=== PATIENT | female | born 1980 | race Caucasian/White ===

== ENCOUNTER 2022-02-10 15:00 | Outpatient (RCR) | payer BC, SELFPAY ==
--- OUTSIDE RECORDS SUMMARY | 2022-01-16 09:20 | XMS_ITS | Continuity of Care Document ---
:1980 Author Care Team Providers Name Role Phone KAMRYN Oleary Attending Physician KAMRYN Oleary Primary Care Physician Chief Complaint and Reason for Visit Chief Complaint Adult, Unspecified Complaint Allergies, Adverse Reactions, Alerts Allergen Type Severity Reaction Last Verified Status Updated Metronidazole Allergy Severe Neurotoxic October 17, Yes Act je reaction 2021 Melatonin Allergy Unknown neuropathy October 17, Yes Active 2021 Sulfa drugs Allergy Mild hives October 17, Yes Active 2021 Social History Smoking Status Status Start Date End Date Date of Observat ion Never smoked tobacco September 102021 (finding) 12:48pm Observation Status Observation Response Date of Response Nonsmoker July 23, 2017 3:40pm Does not use illicit drugs June 3:40pm Does not drink alcohol November 25, 2017 3:1 3pm Additional Data Assigned Sex Female Problems Active Problems Medical Problem Onset Date Status Anxiety May 31, 2013 Active Endometriosis May 31, 2013 Active Cardiac murmur May 31, 2013 Active History of anal fissures May 31, 2013 Resolved C. difficile colitis Resolved Tinnitus Active Hypertriglyceridemia, familial Active Neuropathy associated with Active endocrine disorder Right ovarian cyst Active Cloudy urine Active HCTZ TREATMENT Active BMI 40.0-44.9, adult Active Well woman exam with routine Active gynecological exam NADYA (obstructive sleep apnea) July 07, 2017 Active Status post excisional biopsy May 31, 2013 Active History of salpingo-oophorectomy May 31, 2013 Active Status post surgical removal of May 31, 2013 Active ganglion cyst History of laparoscopic Active cholecystectomy [place] teeth extracted Active Medications Medication Status Dose Units Route Directions Qty Days Start End Ins tructions Date Date Cholecalcife Active 1000 UNIT PO Daily 100 rol (Vitamin D) 1,000 Unit TAB Colestipol Active Unknow OR Hcl n Dose Gemfibrozil Active 600 MG PO Twice Daily October Before , Meals 2021 8:52am Hydrochlorot Active 12.5 MG PO Daily September hiazide 2021 11:04am Levothyroxin Active 100 MCG PO Daily September e Sodium 2021 9:22am Menopause Active Unknow Daily Support n Dose Multivitamin Active 1 TAB PO Daily 100 s (Multivitami n/Minerals) TAB Norgestimate Active 1 TAB PO Daily November -Ethinyl , Estradiol 2021 8:16am Amoxicillin/ Disconti 1000 MG PO Three Times February 2 tabs by Clavulanate nued A Day , er mouth 3x /day Potassium 2012 12, for 7 days . (Amoxicillin 5:21pm 2012 & Pot 3:01pm Clavulanate) 500 Mg/125 Mg TAB Disconti November Control nued 2012 2:10pm Ceftriaxone Disconti 1 GM IM Once February Sodium nued , (Rocephin) 1 2012 2012 Gm INJ 4:48pm 5:05pm Cefuroxime Disconti 500 MG PO Twice A Day January Axetil nued 2018 9:32am 11:01a m Cephalexin Disconti 500 MG PO Twice A Day January (Keflex) 500 nued , , Mg CAP 2018 2018 4:33pm 2:26pm Cholecalcife Disconti 1000 UNIT PO Daily Connie pagan (Vitamin nued y D3) 1,000 , Unit CAP 2015 1:27pm Clindamycin Disconti 300 MG PO Tid X 10 24 March Novemb Hcl nued Days , er 2012 12, 4:50pm 2012 3:01pm Colestipol Disconti 2 GM OR Daily November Hcl nued 2017 3:11pm Diphtheria/T Disconti 0.5 ML IM Once Decembe Decemb etanus/Acell nued , er Pertussis 2018 01, (Adacel) 0.5 8:29am 2017 Ml INJ 8:31am Diphtheria/T Disconti 0.5 ML IM Once February etanus/Acell nued , , Pertussis 2012 2012 (Adacel) 0.5 4:48pm 5:05pm Ml INJ Doxycycline Disconti 100 MG PO Twice Daily Januaryus t Hyclate nued For 14 Days , , 2018 2018 1:52pm 11:26a m Doxycycline Disconti 100 MG PO Twice A Day 14 March Nove mb Hyclate nued 8th, er 2012 6th, 4:41pm 2012 3:01pm Ethinyl Disconti 1 TAB PO Daily September Use Estradiol/Dr cooper , , Continu ously ospirenone 2019 2019 (Alisha) 3 8:16am 8:06am Mg/0.03 Mg TAB Ethinyl Disconti 1 TAB PO Daily January patient using Estradiol/Dr cooper er , continu ously ospirenone 2016 (Alisha) 3 2015 11:33a Mg/0.03 Mg 8:45am m TAB Ethinyl Disconti 1 TAB PO Daily November Estradiol/No nued y , , rgestimate 2021 2021 ([facility] 10:37am 8:11am 28) 0.25 Mg/0.035 Mg TAB Ethinyl Disconti 1 TAB PO Daily e ua Estradiol/No nued r , ry rgestimate 2020, ([facility]inte[facility] 9:00am 2021) 0.25 10:37a Mg/0.035 Mg m TAB Ethinyl Disconti 1 TAB PO Daily November Decemb Estradiol/No nued , er rgestimate 2020, ([facility] 8:28am 2020) 0.25 9:00am Mg/0.035 Mg TAB Ethinyl Disconti 1 TAB PO Daily April Estradiol/No nued , , rgestimate 2019 2020 ([facility] 2:17pm 8:28am ) 0.25 Mg/0.035 Mg TAB Ethinyl Disconti 1 TAB PO Daily April Estradiol/No nued , r rgestimate 2019, ([facility]intec 2:13pm 2019) 0.25 2:17pm Mg/0.035 Mg TAB Ethinyl Disconti 1 TAB PO Daily February Estradiol/No nued 7th, r rgestimate 2019, (Sprintec 10:48am 2019) 0.25 2:13pm Mg/0.035 Mg TAB Ethinyl Disconti 1 TAB PO Daily January Estradiol/No nued 14th, 7th, rgestimate 2019 2019 ([facility] 8:06am 10:48a 28) 0.25 m Mg/0.035 Mg TAB Ethinyl Disconti 1 TABLET PO Daily September take Estradiol/No nued y 3rd, 11th, contin uously rgestimate 2019 2019 ([facility] 2:05pm 8:16am 28) 28 Day TAB Ethinyl Disconti 1 TABLET PO Daily December take Estradiol/No nued 3rd, ry continu ously rgestimate 2018 09, ([facility] 8:17am 2019 28) 28 Day 2:05pm TAB Ethinyl Disconti 1 TABLET PO Daily December take Estradiol/No nued er 3rd, continu ously rgestimate 2018 ([facility] 2017 8:17am 28) 28 Day 7:35am TAB Ethinyl Disconti 1 TABLET PO Daily January take Estradiol/No nued , krystyna continu ously rgestimate 2016, ([facility] 3:21pm 2017 28) 28 Day 7:35am TAB Ethinyl Disconti 1 TABLET PO Daily January take Estradiol/No nued y , , christen nuously rgestimate 2016 2016 ([facility] 11:42am 3:21pm 28) 28 Day TAB Ethinyl Disconti 1 TABLET PO Daily July take Estradiol/No nued , ry continu ously rgestimate 2015, ([facility] 1:52pm 2016 28) 28 Day 11:42a TAB m Ethinyl Disconti 1 TABLET PO Daily take Estradiol/No nued r 3rd, y contin uously rgestimate 2014, ([facility] 4:08pm 2015 28) 28 Day 1:52pm TAB Ethinyl Disconti 1 TABLET PO Daily 4 Decembe Decemb take Estradiol/No nued r 31st, er christen nuously rgestimate 2013 3rd, ([facility]inte[facility] 1:20pm 2014) 28 Day 4:08pm TAB Ethinyl Disconti 1 TABLET PO Daily September Dece Estradiol/No nued 5th, er rgestimate 2013, ([facility] 12:53pm 2013) 28 Day 1:20pm TAB Ethinyl Disconti 1 TABLET PO Daily b Estradiol/No nued er rgestimate 6th, (Sprintec 2012) 28 Day 3:01pm TAB Ferrous Disconti 325 MG PO Daily November Sulfate nued , (Iron 2017 (Ferrous 3:31pm Sulfate)) 325 Mg TAB Fluconazole Disconti 150 MG PO Once February (Diflucan) nu, , 150 Mg TAB 2018 2018 11:54am 2:26pm Fluconazole Disconti 150 MG PO Once February Barrie e one nued , , tablet now 2015 2015 and repeat 9:39am 2:19pm dose in 72 hours Fluconazole Disconti 150 MG PO Once February 1 t ab by mouth at start of yeast infection; november repeat in nued , er 72 hours if ne eded. 2012 6th, 5:21pm 2012 3:01pm Fluticasone Disconti 1 SPRAY EACH As Needed 1 Propionate nued NOSTR er (Flonase) 50 6th, Mcg/1 Scandia 2012 NYDIA 3:01pm Gemfibrozil Disconti 600 MG PO Twice Daily September nued Before , , Meals 2021 2021 3:05pm 8:52am Gemfibrozil Disconti 600 MG PO Twice Daily 180 October nued Before 1st, 9th, Meals 2020 2021 1:43pm 3:05pm Gemfibrozil Disconti 600 MG PO Twice Daily 180 Decembe Apr il nued Before r 15, , Meals 2019 2020 12:06pm 1:43pm Gemfibrozil Disconti 600 MG PO Twice Daily 180 Februar Dec emb nued Before y 5th, er Meals 2019 15, 9:54am 2019 12:06p m Gemfibrozil Disconti 600 MG PO Twice Daily 60 April santiago nued Before , ry Meals 2018 11, 9:06am 2019 9:54am Hydrochlorot Disconti 12.5 MG PO Daily April hiazide nued 13th, 2020 12:20pm 11:04a m Hydrochlorot Disconti 12.5 MG PO Daily Aprobe hiazide nued er r , 2020 7:03am 12:20p m Hydrochlorot Disconti 12.5 MG PO Daily February hiazide nued , krystyna 2020, 8:48am 2020 7:03am Hydrochlorot Disconti 12.5 MG PO As Directed 22 December Lora weinstein Take 1 tab every other day,in the am,as needed for fluid hiazide nued , er retention. 2017, 3:51pm 2017 3:48pm Lactobacillu Disconti 2 CAP OR Daily January s nued , (Probiotic) 2016 CAP 11:33a m Levothyroxin Disconti 100 MCG PO Daily September e Sodium nued y , 2021 10:21am 9:22am Levothyroxin Disconti 88 MCG PO Daily July e Sodium nued , ry 2021, 8:21am 2021 10:15a m Levothyroxin Disconti 88 MCG PO Daily April e Sodium nued , y 2020, 12:20pm 2021 8:21am Levothyroxin Disconti 88 MCG PO Daily February e Sodium nued , r 2020, 10:46am 2020 12:20p m Levothyroxin Disconti 75 MCG PO Daily December e Sodium nued 2020 6:49am 10:46a m Levothyroxin Disconti 75 MCG PO Daily February e Sodium nued 2019 7:25am 6:49am Levothyroxin Disconti 75 MCG PO Daily December e Sodium nued 2019 6:32am 7:25am Levothyroxin Disconti 75 MCG PO Daily December e Sodium nued 2018 11:47am 6:32am Levothyroxin Disconti 75 MCG PO Daily November e Sodium nued 2018 11:39am 11:47a m Levothyroxin Disconti 75 MCG PO Daily April e Sodium nued 2017 2:05pm 11:39a m Levothyroxin Disconti 75 MCG PO Daily January e Sodium nued 2017 7:29am 2:22pm Levothyroxin Disconti 75 MCG PO Daily January e Sodium nued 2017 4:31pm 7:29am Levothyroxin Disconti 75 MCG PO Daily November e Sodium nued 2017 10:42am 4:31pm Levothyroxin Disconti 50 MCG PO Daily January e Sodium nued , (Synthroid) 2016 2017 50 Mcg TAB 3:28pm 10:42a m Levothyroxin Disconti 50 MCG PO Daily January e Sodium nued y , (Synthroid) 2016 2016 50 Mcg TAB 1:20pm 3:28pm Levothyroxin Disconti 50 MCG PO Daily November e Sodium nued (Synthroid) 2015, 50 Mcg TAB 3:44pm 2016 1:20pm Levothyroxin Disconti 50 MCG PO Daily December e Sodium nued , (Synthroid) 2014 2015 50 Mcg TAB 10:10am 3:44pm Levothyroxin Disconti 50 MCG PO Daily October e Sodium nued , , (Synthroid) 2013 2014 50 Mcg TAB 3:39pm 10:10a m Levothyroxin Disconti 50 MCG PO Daily 22 November e Sodium nued , (Synthroid) 2013 50 Mcg TAB 3:39pm Lorazepam Disconti 0.5 MG PO Three Times 22 October Decemb nued A Day as , er needed 2019 08, 10:52am 2020 9:03am Lorazepam Disconti 0.5 MG PO Three Times February nued A Day as , needed 2015 2017 2:58pm 2:22pm Lorazepam Disconti 0.5 MG PO Three Times 14 March Novemb (Ativan) 0.5 nued A Day 8th, er Mg TAB 2012 12, 2:53pm 2012 3:01pm Meclizine Disconti 25 MG PO Every 8 September Hcl nued Hours as 14, 24, 2017 4:32pm 8:49am Metronidazol Disconti 500 MG PO Tid X 14 42 December e nued Days , 2015 5:03pm 3:48pm Minocycline Disconti 50 MG PO Daily Januar Hcl nued 2015 1:27pm Norethindron Disconti 0.35 MG PO Daily February e nued , er (Contracepti 2012 12, ve) (Kimberli) 2:54pm 2012 0.35 Mg TAB 3:01pm Norethindron Disconti 1 TAB PO Daily 20 October e-Ethinyl nued , Estradiol-Fe 2013 (08/14) 3:32pm (Microgestin 08/14) 1 Mg/20 Mcg TAB Nutritional Disconti 1 OR Daily January Supplements , (Estroven) 2019 TAB 10:43a m Nystatin Disconti 5 ML PO Qid X 7 280 January (Nystatin nued Days , , Suspension) 2015 2015 100,000 Unit 4:19pm 2:19pm KOREY Nystatin Disconti 5 ML PO Qid X 7 280 January (Nystatin nued Days , , Suspension) 2015 2015 100,000 Unit 4:07pm 4:19pm KOREY Omeprazole Disconti 20 MG PO Daily 21 February nued 2018 11:01a m Trimethoprim Disconti 100 MG PO Twice A Day February ust nued , 2012 4:41pm 4:50pm Vancomycin Disconti 125 MG PO Twice A Day February Hcl nued 2015 10:25a m Vancomycin Disconti 125 MG PO Qid X 14 150 January Hcl nued Days , , (First-Vanco 2015 2015 mycin) 50 4:17pm 2:19pm Mg/Ml JACKELIN Immunizations Immunization Event Date Not Given Dose Covering Machine [employer] Hel[employer] Lot Vac cine Reason Number Number Informatio n Statement (VIS) Deta il COVID-19 Moderna August 262020 COVID-19 Moderna October 182020 COVID-19 Pfizer April 252020 Influenza March 162020 Tetanus/Diptheri November 09, 1 a 2014 Tdap March 02, 1 SANOFI [id number] (adolescent/adul 2012 t) Tdap June 26 SANOFI [id number] (adolescent/adul 2017 t) Procedures Procedure Date Performed Status Future Lab Clinic December 25, 2021 completed Relevant Diagnostic Tests and/or Laboratory Data Laboratory Results Test Date/Time Result Interpretation Reference Result Perfo rming Range Comment Site Miscellaneous January 02, COVID 19 [facility] Lab Test 2021 10:33am IGG, 1999 No rth [facility] [address] Miscellaneous January 02, SEE REF [facility] Lab Test Result 2021 10:33am LAB SCAN 1999 [facility] [address] Miscellaneous January 02, [facility] Lab Test Performing 2021 10:33am 2 000 [facility] [address] Advance Directives Advance Directive Response Recorded Date/Time Does Pt have Health Care No August 23, 2 016 8:12am Directive? Has patient completed a No September 10, 022 12:48pm Health Care Directive? Insurance Providers Guarantor Keila Cui A Address [facility] [address] Contact Info. Home Phone: Payer Policy Id Coverage Id Subscriber's Subscriber Id Effective E xpiration Name Date Date Blue [id number] Keila Cui July 26, [facility] [id number] A 2019 220G Encounters Encounter Location(s) Arrival/Admit Date Discharge/Depart Date Provider(s) Registered [place] January 14, 2022 Jerica Oleary [facility] 3:15pm PA Registered [place] January 02, 2022 Jerica Oleary [facility] 10:33am PA Registered [facility] January 02, 2022 [facility] 10:15am Office Visit [place] January 02, 2022 Jer[facility] 10:15am PA Recent Diagnosis Onset Date RECENT COVID INFECTION Assessments Diagnosis Onset Date Resolution Status RECENT COVID INFECTION Plan of Treatment Future Tests Future scheduled test information is unavailable Pending Tests Pending diagnostic test information is unavailable Future Visits Future appointment information is unavailable Referrals to Other Providers Reason for Referral Referral Start Provider Provider Contact Pr ovider Address Date Information PT HAS BEEN CONTACTED AND INFORMED THAT SHE WILL RECEIVE A C ALL FROM DR ALMANZA [place] JAZMÍN'S OFFICE TO SCHEDULE EMG. PER DAVIE AT [facility], [facility] AND [facility] IS IN NETWORK. ORDER AND OFFICE NOTES FAXED TO DR NOYOLA'S OFFICE [phone]. Appt 03/07/2019 at 9AM. Lalita Jasso MD Work Phone: [employer]: [phone] [place] [address] Cuate Kaiser, Work Phone: [facility] Radha R.D. [address] [facility] [phone] Dysesthesia [facility] Cellulitis of left knee Lalita Jasso MD Work Phone: [employer] [phone] [place] [address] Obesity Cuate Kaiser, Work Phone: [facility] Radha R.D. [address] [facility] [phone] Future Procedures Procedure Name Scheduled Date JIMMY Bilat Mammo Scrn Future Medications Future medication information is unavailable Patient Instructions Patient instructions are unavailable
== END 2022-04-22 14:02 | disposition home or self-care (01) ==
PROVIDERS: PCP Physician Assistant Medical; Visit Provider Physician Assistant Medical
DX: M72.2 Plantar fascial fibromatosis (principal)
CPT/HCPCS: 97035; 97140; 97535

== ENCOUNTER 2022-02-12 11:32 | Outpatient (CLI) | payer BC, SELFPAY ==
--- NOTE | 2022-02-12 11:40 | CRLHL7_ITS ---
For Patients: As a result of the Cures Act, medical imaging exams and procedure reports are released immediately into your electronic medical record. You may view this report before your referring provider. If you have questions, please contact your health care provider. BILATERAL MAMMOGRAM WITH COMPUTER-AIDED DETECTION AND TOMOSYNTHESIS TECHNIQUE: CC and MLO views were obtained. These mammographic images have been obtained using full-field digital technique. These mammographic images were interpreted with the benefit of computer-aided detection. Breast Tomosynthesis was used in this interpretation. COMPARISON FILM: 02/10/2021, 02/06/2019, 03/18/2018. FINDINGS: There are scattered areas of fibroglandular density IMPRESSION: There is no radiographic evidence for malignancy. ASSESSMENT: BI-RADS Category 2: Benign RECOMMENDATION: Routine screening mammogram in 1 year. A lay language report of this examination will be provided to the patient. Robert Deleon M.D. Diagnostic Radiologist [email or web address] PRANEETH/[email or web address] / be/Dictated by: Robert Dleeon MD @ 02/12/2022 12:50:00 PM (Electronically Signed)
== END 2022-02-12 11:33 | disposition home or self-care (01) ==
LOC: MAMMO 11:33
PROVIDERS: PCP Physician Assistant Medical; Visit Provider Obstetrics & Gynecology
DX: Z12.31 Encounter for screening mammogram for malignant neoplasm of breast (principal); R92.8 Other abnormal and inconclusive findings on diagnostic imaging of breast
CPT/HCPCS: 77063; 77067

== ENCOUNTER 2022-04-16 14:05 | Outpatient (CLI) | payer BC, SELFPAY | END 2022-04-16 14:06 | disposition home or self-care (01) | LOC: FRMREF 14:07 | PROVIDERS: PCP Physician Assistant Medical; Visit Provider Physician Assistant Medical | DX: E03.9 Hypothyroidism, unspecified (principal) | CPT/HCPCS: 84443 ==

== ENCOUNTER 2022-07-23 15:34 | Outpatient (CLI) | payer BC, SELFPAY ==
[2022-07-23 22:11] LABS: Albumin* 4.4 g/dL (3.3-5.0); Chloride* 105 mmol/L (96-114); Sodium* 139 mmol/L (135-149)
[2022-07-23 22:12] LABS: Potassium* 4.2 mmol/L (3.6-5.1)
[2022-07-23 22:14] LABS: Alanine Aminotransferase* 18 U/L (4-35); Alkaline Phosphatase* 69 U/L (40-150); Aspartate Amino Transferase* 25 U/L (12-35); Bilirubin Total* 0.3 mg/dL (0.1-1.5); Blood Urea Nitrogen* 10 mg/dL (5-24); Carbon Dioxide* 25 mmol/L (20-32); Creatinine* 0.6 mg/dL (0.5-1.5); Estimated Glomerular Filt Rate 113 ml/min; Glucose* 98 mg/dL (60-115); Total Protein* 7.2 g/dL (6.0-8.3)
[2022-07-23 22:15] LABS: Calcium* 9.7 mg/dL (8.4-10.6)
== END 2022-07-23 15:35 | disposition home or self-care (01) ==
LOC: FRMREF 15:41
PROVIDERS: PCP Physician Assistant Medical; Visit Provider Family Medicine
DX: I10 Essential (primary) hypertension (principal); R22.0 Localized swelling, mass and lump, head
CPT/HCPCS: 80053

== ENCOUNTER 2022-07-29 14:48 | Outpatient (CLI) | payer BC, SELFPAY ==
--- NOTE | 2022-07-29 15:00 | CRLHL7_ITS ---
For Patients: As a result of the Century Cures Act, medical imaging exams and procedure reports are released immediately into your electronic medical record. You may view this report before your referring provider. If you have questions, please contact your health care provider. INDICATION: postauricular mass, pt placed a BB marker over area of concern TECHNIQUE: CT of the neck with 95 ml iodinated contrast agent. Coronal and sagittal reconstructions are included. COMPARISON: None FINDINGS: There is no mass or other lesion within the soft tissues of the suprahyoid or infrahyoid neck. A few small prominent right retroauricular and suboccipital nodes likely correspond to the site of clinical concern marked by a BB. No pathologically enlarged cervical lymph nodes. The oral cavity, nasopharyngeal, oropharyngeal and hypopharyngeal mucosal spaces are normal. No periapical dental disease. The supraglottic, glottic and infraglottic larynx are normal. The airway including the trachea is normal and is patent. The parotid glands, submandibular and sublingual glands are normal in appearance. The thyroid gland is normal in appearance. The vascular structures opacify normally with contrast material. No suspicious lytic or blastic osseous lesions. Mild polypoid mucosal thickening in the left maxillary sinus. Rightward deviation of the nasal septum. Visualized orbital and intracranial contents are normal. Supraclavicular regions, mediastinum and soft tissues of the imaged chest wall are normal. Visualized portions of the upper lungs are clear. IMPRESSION: 1. A few small prominent right retroauricular and suboccipital nodes likely correspond to the site of clinical concern marked by a BB. No pathologically enlarged cervical lymph nodes. 2. No evidence of acute inflammation. 3. Normal deep soft tissues of the neck. Please note that all CT scans at this facility use dose modulation, iterative reconstruction, and/or weight-based dosing when appropriate to reduce radiation dose to as low as reasonably achievable. Dictated by Robert Atkins MD @ 07/29/2022 3:52:52 PM (Electronically Signed)
== END 2022-07-29 14:49 | disposition home or self-care (01) ==
LOC: CT 14:49
PROVIDERS: PCP Physician Assistant Medical; Visit Provider Family Medicine
DX: R22.0 Localized swelling, mass and lump, head (principal)
CPT/HCPCS: 70491; Q9967

== ENCOUNTER 2022-08-31 15:13 | Outpatient (CLI) | payer BC, SELFPAY ==
[2022-08-31 22:15] LABS: Chloride* 103 mmol/L (96-114)
[2022-08-31 22:16] LABS: Potassium* 4.2 mmol/L (3.6-5.1); Sodium* 138 mmol/L (135-149)
[2022-08-31 22:18] LABS: Creatinine* 0.7 mg/dL (0.5-1.5); Estimated Glomerular Filt Rate 109 ml/min
[2022-08-31 22:19] LABS: Blood Urea Nitrogen* 12 mg/dL (5-24); Calcium* 9.4 mg/dL (8.4-10.6); Carbon Dioxide* 26 mmol/L (20-32); Glucose* 89 mg/dL (60-115)
== END 2022-08-31 15:14 | disposition home or self-care (01) ==
LOC: FRMREF 15:14
PROVIDERS: PCP Physician Assistant Medical; Visit Provider Family Medicine
DX: Z01.818 Encounter for other preprocedural examination (principal); Z68.41 Body mass index [BMI] 40.0-44.9, adult; Z83.71 Family history of colonic polyps
CPT/HCPCS: 80048

== ENCOUNTER 2022-09-11 08:16 | Outpatient (CLI) | payer BC, SELFPAY ==
--- NOTE | 2022-09-11 07:43 | W.ANESCHARGE ---
Anesthesia Charges Start Date/Time Anesthesia Start Date: 09/11/22 Anesthesia Start Time: 09:30 Stop Date/Time Anesthesia Stop Date: 09/11/22 Anesthesia Stop Time: 10:15
--- NOTE | 2022-09-11 10:24 | W.ANESCHARGE ---
Anesthesia Charges Start Date/Time Anesthesia Start Date: 09/11/22 Anesthesia Start Time: 09:30 Stop Date/Time Anesthesia Stop Date: 09/11/22 Anesthesia Stop Time: 10:15
== END 2022-09-11 08:17 | disposition home or self-care (01) ==
LOC: OP CLINIC 08:17
PROVIDERS: PCP Physician Assistant Medical; Visit Provider Internal Medicine
DX: Z12.11 Encounter for screening for malignant neoplasm of colon (principal); K57.30 Diverticulosis of large intestine without perforation or abscess without bleeding; Z83.71 Family history of colonic polyps
CPT/HCPCS: 00812; 45378; J2704

== ENCOUNTER 2022-10-12 14:29 | Outpatient (CLI) | payer BC, SELFPAY | END 2022-10-12 14:30 | disposition home or self-care (01) | LOC: NFLDREF 14:29 | PROVIDERS: PCP Physician Assistant Medical; Visit Provider Obstetrics & Gynecology | DX: Z01.419 Encounter for gynecological examination (general) (routine) without abnormal findings (principal); I10 Essential (primary) hypertension; E03.9 Hypothyroidism, unspecified; E78.1 Pure hyperglyceridemia | CPT/HCPCS: 84443 ==

== ENCOUNTER 2023-01-29 14:36 | Outpatient (CLI) | payer BC, SELFPAY | END 2023-01-29 14:37 | disposition home or self-care (01) | LOC: NFLDREF 01-31 12:02 | PROVIDERS: PCP Physician Assistant Medical; Referring Provider Physician Assistant Medical; Visit Provider Obstetrics & Gynecology | DX: R53.83 Other fatigue (principal) | CPT/HCPCS: 84443 ==

== ENCOUNTER 2023-02-15 13:04 | Outpatient (CLI) | payer BC, SELFPAY ==
--- NOTE | 2023-02-15 13:00 | CRLHL7_ITS ---
For Patients: As a result of the Cures Act, medical imaging exams and procedure reports are released immediately into your electronic medical record. You may view this report before your referring provider. If you have questions, please contact your health care provider. BILATERAL SCREENING MAMMOGRAM WITH COMPUTER-AIDED DETECTION AND TOMOSYNTHESIS TECHNIQUE: CC and MLO views were obtained. These mammographic images have been obtained using full-field digital technique. These mammographic images were interpreted with the benefit of computer-aided detection. Breast tomosynthesis was used in this interpretation. COMPARISON FILM: 02/12/22, 02/10/21, 02/09/20. FINDINGS: There are scattered areas of fibroglandular density. IMPRESSION: There is no radiographic evidence for malignancy. ASSESSMENT: BI-RADS Category 2: Benign RECOMMENDATION: Routine screening mammogram in 1 year. A lay language report of this examination will be provided to the patient. ROBERT CRAWFORD M.D. Diagnostic Radiologist [email or web address] PRANEETH/angelo Transcribed: 02/16/2023, 6:[address]/Dictated by: Robert Crawford MD @ 02/16/2023 9:47:00 AM (Electronically Signed)
== END 2023-02-15 13:05 | disposition home or self-care (01) ==
LOC: MAMMO 13:05
PROVIDERS: PCP Physician Assistant Medical; Visit Provider Obstetrics & Gynecology
DX: Z12.31 Encounter for screening mammogram for malignant neoplasm of breast (principal)
CPT/HCPCS: 77063; 77067

== ENCOUNTER 2023-05-18 07:45 | Outpatient (CLI) | payer BC, SELFPAY | END 2023-05-18 07:46 | disposition home or self-care (01) | PROVIDERS: PCP Physician Assistant Medical; Referring Provider Physician Assistant Medical; Visit Provider Physician Assistant Medical | DX: E03.9 Hypothyroidism, unspecified (principal); I10 Essential (primary) hypertension; R73.9 Hyperglycemia, unspecified | CPT/HCPCS: 80053; 84439; 84443 ==

== ENCOUNTER 2023-07-09 09:40 | Emergency (ER) | payer BC, SELFPAY ==
[2023-07-09 09:57] VITALS: PULSE 64; RESP 18; TEMP 36.2; O2SAT 97; BMI 45.2
--- NOTE | 2023-07-09 10:31 | CRLHL7_ITS ---
For Patients: As a result of the 21st Century Cures Act, medical imaging exams and procedure reports are released immediately into your electronic medical record. You may view this report before your referring provider. If you have questions, please contact your health care provider. indication: Left lower quadrant abdominal pain Technique: Volumetric multidetector CT images of the abdomen and pelvis were obtained after the administration of intravenous contrast. 137 cc Isovue 370 low osmolar intravenous contrast Comparison: None available. Findings: There is minimal basilar atelectasis and parenchymal scar. The liver is enlarged with mild hepatomegaly and hepatic steatosis. No obvious focal abnormality is appreciated. The portal vein is patent. There is prior cholecystectomy. There is no significant common biliary ductal dilatation or abrupt cut off. The spleen is normal in enhancement and size. There is mild thickening of the gastric antrum. The pancreas is normal in enhancement without significant atrophy. The adrenal glands are unremarkable. There is a delayed left-sided nephrogram with left-sided hydronephrosis and hydroureter with mild left-sided perinephric stranding. There is demonstration of 2.5 millimeter calculus in the distal left ureter just at the ureterovesicular junction. There is moderate stool seen throughout the colon with minimal distal colonic diverticulosis without evidence of diverticulitis. Minimal fluid-filled central small-bowel is appreciated, nonspecific in appearance. The appendix is unremarkable. There is no significant mesenteric, retroperitoneal, or pelvic sidewall lymph nodes. The aorta is nonaneurysmal. There is no significant atherosclerotic disease appreciated. There is demonstration of an enlarged right ovary with demonstration of a complex cyst measuring 4.3 centimeters. There is no free fluid or free air. The anterior abdominal wall is intact without significant hernias. The lumbar vertebral body heights are grossly maintained in satisfactory alignment without evidence of displaced fracture, lytic or blastic lesion. Impression: 1. Moderate to severe left-sided hydronephrosis and hydroureter with demonstration of a 2.3 millimeter calculus just at the left ureterovesicular junction. 2. Incidental note made of a 4.3 centimeter solid ovarian mass lesion on the right. Consider additional follow-up with pelvic sonogram when clinically feasible. 3. Otherwise, no definite acute intra-abdominal abnormality. Minimal colonic diverticulosis without evidence of diverticulitis. Please note that all CT scans at this facility use dose modulation, iterative reconstruction, and/or weight-based dosing when appropriate to reduce radiation dose to as low as reasonably achievable. Dictated by Karan Brice MD @ 07/09/2023 11:46:40 AM (Electronically Signed)
--- NOTE | 2023-07-09 10:32 | ED_ITS ---
HPI - Abdominal Pain General Chief Complaint: Abdominal Pain Stated Complaint: possible diverticulitis Time Seen by Provider: 07/09/23 10:27 History of Present Illness HPI narrative: This 43-year-old female comes in reporting left lower quadrant abdominal pain that began early this morning. She states that pain is constant. She reports that she has had her left ovary removed. She does have history of diverticulosis on colonoscopy but has never had diverticulitis. She does not report any altered bowel function or blood in the toilet. She does not have any dysuria symptoms. She arrives here with normal vital signs. Related Data Home Medications Medication Instructions Recorded Confirmed cholecalciferol (vitamin D3) 25 25 mcg PO QDAY 03/16/22 07/09/23 mcg (1,000 unit) tablet colestipol 1 tab PO DAILY 03/16/22 07/09/23 multivitamin (Daily Multi-Vitamin 1 tab PO QDAY 03/16/22 07/09/23 tablet) Previous Rx's Medication Instructions Recorded norgestimate 0.25 mg-ethinyl 1 tab PO QDAY #84 tabs 11/16/22 estradiol 35 mcg tablet gemfibrozil 600 mg tablet 600 mg PO .bidac #180 tabs 12/02/22 hydrochlorothiazide 12.5 mg capsule 12.5 mg PO QDAY #90 caps 04/16/23 levothyroxine 112 mcg tablet 112 mcg PO QDAY #90 tabs 05/20/23 benzonatate 200 mg capsule 200 mg PO TID PRN cough #30 caps 06/09/23 hydrocodone 5 mg-acetaminophen 325 1 tab PO Q4-6H PRN pain #20 tabs 07/09/23 mg tablet ketorolac 10 mg tablet 10 mg PO Q8H 5 days #15 tabs 07/09/23 ondansetron HCl 4 mg tablet 4 mg PO Q6H #10 tabs 07/09/23 Allergies Allergy/AdvReac Type Severity Reaction Status Date / Time metronidazole Allergy Severe neurotoxic Verified 07/09/23 07:48 reaction Sulfa (Sulfonamide Allergy Mild Hives Verified 07/09/23 07:48 Antibiotics) melatonin Allergy Unknown neuropathy Verified 07/09/23 07:48 Review of Systems Status of ROS Reports: 10 or more systems reviewed and unremarkable except as noted in History and below Narrative Constitutional: No fevers, no weight gain or loss. Eyes: No discharge. No vision changes. HENT: No congestion, no sore throat, no ear pain. Cardiovascular: No chest pain, no palpitations. Respiratory: No shortness of breath, no wheezes, no cough. Gastrointestinal: No vomiting, no diarrhea. Abdominal pain as described above. Genitourinary: No dysuria, no hematuria. Musculoskeletal: Normal range of motion. Skin: No rashes, no pruritis. Neurological: No dizziness, weakness, sensory change, speech change. Endo/Heme/Allergies: No bruising or bleeding. No polydipsia. Pysch: no suicidality, no anxiety, no insomnia. All other systems reviewed and are negative. [facility] Medical History (Updated 07/09/23 @ 13:57 by Paras Gibson MD) Fatigue ?R53.83 - Other fatigue (ICD-10) Feared condition not demonstrated ?Z71.1 - Person with feared health complaint in whom no diagnosis is made (ICD-10) Health care directive on file ?Z78.9 - Other specified health status (ICD-10) History of anal fissures (05/31/13) ?Z87.19 - Personal history of other diseases of the digestive system (ICD-10) Cyst of right ovary ?N83.201 - Unspecified ovarian cyst, right side (ICD-10) Colitis due to Clostridium difficile ?A04.72 - Enterocolitis due to Clostridium difficile, not specified as recurrent (ICD-10) Surgical History (Updated 04/16/22 @ 15:23 by Jerica Oleary PA-C) Status post surgical removal of ganglion cyst (05/31/13) ?Z98.890 - Other specified postprocedural states (ICD-10) Status post excisional biopsy (05/31/13) ?Z98.890 - Other specified postprocedural states (ICD-10) History of third molar tooth extraction ?K08.409 - Partial loss of teeth, unspecified cause, unspecified class (ICD- 10) History of salpingo-oophorectomy (05/31/13) ?Z90.79 - Acquired absence of other genital organ(s) (ICD-10) ?Z90.721 - Acquired absence of ovaries, unilateral (ICD-10) History of laparoscopic cholecystectomy ?Z90.49 - Acquired absence of other specified parts of digestive tract (ICD- 10) Family History (Updated 04/15/22 @ 10:51 by Bernice Rodrigez ~ PSR) Maternal Grandmother Breast cancer Father Endogenous hyperglyceridemia Mother High blood pressure Other Colorectal cancer Social History (Updated 04/15/22 @ 10:52 by Bernice Rodrigez ~ PSR) Narrative: Non smoker does not drink alcohol does not use illicit drugs Smoking Status: Never smoker Do you use any of these nicotine containing products: None Second hand tobacco smoke exposure: No How often do you have a drink containing alcohol: never How often do you have six or more drinks on one occasion: Never AUDIT-C Alcohol total score: 0 Non-prescribed substance use: denies use Little interest or pleasure in doing things: not at all Feeling down, depressed, or hopeless: not at all service: No Exam Narrative: Exam Narrative: Constitutional: Well-developed, well-nourished, no acute distress. HEENT: Normocephalic, atraumatic. Neck: Normal range of motion. Nontender. Supple. Heart: Regular. No murmurs. Normal rate. Intact distal pulses. Lungs: Clear to auscultation. No chest discomfort. No wheezes, rhonchi, or rales. Abdomen: Normal bowel sounds. Tenderness in the left abdomen. No rebound tenderness. Genitalia: Deferred. Back: No midline tenderness. Normal range of motion. Extremities: Normal range of motion. No injury. Skin: Intact. No rash. Warm. No erythema or pallor. Neurologic: No altered sensation. No weakness. Alert and oriented. Psychiatric: No suicidality. No anxiety or depression. No insomnia. Nursing notes and vitals signs are reviewed. Const: Vital Signs, click to edit/add: Vital Signs - 24 hr 07/09/23 09:57 Temperature 97.2 F L Pulse Rate [Pulse Oximeter] 64 Respiratory Rate 18 Pulse Oximetry 97 Oxygen Delivery Me thod Room Air Course Vital Signs Vital signs: Initial Vital Signs Temperature 97.2 F L 07/09/23 09:57 Temperature Source Temporal Artery Scan 07/09/23 09:57 Pulse Rate 64 07/09/23 09:57 Pulse Rhythm Regular 07/09/23 09:57 Respiratory Rate 18 07/09/23 09:57 Blood Pressure Position Left Lateral 07/09/23 09:57 Pulse Oximetry 97 07/09/23 09:57 Oxygen Delivery Method Room Air 07/09/23 09:57 Vital Signs Temperature 97.2 F L 07/09/23 09:57 Pulse Rate 64 07/09/23 09:57 Respiratory Rate 18 07/09/23 09:57 Pulse Oximetry 97 07/09/23 09:57 Oxygen Delivery Method Room Air 07/09/23 09:57 Temperature 97.2 F L 07/09/23 09:57 Pulse Rate 64 07/09/23 09:57 Respiratory Rate 18 07/09/23 09:57 Pulse Oximetry 97 07/09/23 09:57 Oxygen Delivery Method Room Air 07/09/23 09:57 Medications Administered Medications: Discontinued Medications Generic Name Dose Route Start Last Admin Trade Name Freq PRN Reason Stop Dose Admin Hydromorphone HCl 0.5 mg 07/09/23 10:30 07/09/23 10:50 Hydromorphone 0.5 Mg/0.5 Ml Inj IVP 07/09/23 10:31 0.5 mg ONCE ONE Administration Ondansetron HCl 4 mg 07/09/23 10:30 07/09/23 10:50 Ondansetron 2 Mg/Ml Inj IVP 07/09/23 10:31 4 mg ONCE ONE Administration MDM - Abdominal Pain MDM Narrative Medical decision making narrative: This patient comes in with left-sided abdominal pain and thought that she might have diverticulitis. An IV was established and CT images are acquired which show no sign of diverticulitis but there is a 2.3 mm stone at the left ureterovesical junction with some upstream hydroureter and hydronephrosis. Urinalysis shows no sign of infection. An incidental finding on CT does indicate a mass on the right ovary. A follow-up ultrasound is obtained which also shows a mass. The patient will follow-up with OBGYN clinic regarding this. She did get good pain relief with initial dose of Dilaudid and Zofran. Later she received a dose of Toradol also. Prescriptions for Toradol, Entriken, and Zofran are provided. Lab Data Labs: Lab Results 07/09/23 07/09/23 07/09/23 Range/Units 10:45 13:00 13:11 WBC 12.38 H (4.50-11.00) K/uL RBC 4.60 (4.00-5.20) m/uL Hgb 12.6 (12.0-16.0) gm/dL Hct 37.6 (33.0-51.0) % MCV 82 (80-100) fL MCH 27 (26-34) pg MCHC 34 (32-36) gm/dL RDW Coeff of Lalita 12.5 (11.5-15.5) % Plt Count 400 (140-440) K/uL Neut % (Auto) 89.1 H (42.0-72.0) % Lymph % (Auto) 7.6 L (20-44) % [place] % (Auto) 2.9 (0.0-11.0) % Eos % (Auto) 0.1 (0.0-7.0) % Baso % (Auto) 0.1 (0.0-3.0) % Neut # (Auto) 11.00 H (1.7-7.0) K/uL Lymph # (Auto) 0.90 (0.90-2.90) K/uL [place] # (Auto) 0.40 (0.00-0.90) K/UL Eos # (Auto) 0.00 (0.00-0.50) K/uL Baso # (Auto) 0.00 (0.00-0.30) K/uL Abs Immat Gran (auto) 0.00 (0.00-0.30) K/uL Imm/Tot Granulo (auto) 0.2 % Sodium 136 (135-149) mmol/L Potassium 3.8 (3.6-5.1) mmol/L Chloride 104 (96-114) mmol/L Carbon Dioxide 21 (20-32) mmol/L Anion Gap 11 (7-15) mEq/L BUN 12 (5-24) mg/dL Creatinine 0.7 (0.5-1.5) mg/dL Estimated Creat Clear 95.01 Estimated GFR 109 ml/min Glucose 118 H (60-115) mg/dL Calcium 8.8 (8.4-10.6) mg/dL Urine Color Yellow (Yellow) Urine Appearance Clear (Clear) Urine pH 6.0 (5.0-8.5) Ur Specific [place] 1.010 (1.000-1.030) Urine Protein Negative (Negative) Urine Glucose (UA) Negative (Negative) Urine Ketones Negative (Negative) Urine Blood 2+ A (Negative) Urine Nitrite Negative (Negative) Urine Bilirubin Negative (Negative) Urine Urobilinogen 0.2 (0.2-1.0) Ur Leukocyte Esterase Negative (Negative) Urine RBC 5-10 A (0-2) Urine WBC 0-2 (0-5) Ur Squamous Epith Cells None (None-Few) Urine Bacteria None (None) Lab Acknowledgement Test Added Imaging Data CT scan - abdomen: Radiologist's impression: 1. Moderate to severe left-sided hydronephrosis and hydroureter with demonstration of a 2.3 millimeter calculus just at the left ureterovesicular junction. 2. Incidental note made of a 4.3 centimeter solid ovarian mass lesion on the right. Consider additional follow-up with pelvic sonogram when clinically feasible. 3. Otherwise, no definite acute intra-abdominal abnormality. Minimal colonic diverticulosis without evidence of diverticulitis. Discharge Plan Discharge Clinical Impression: Calculus, ureteral, Mass of right ovary Patient Disposition: Home w/ Parent or Adult Condition: Improved Additional Instructions: Take medication as needed and directed for symptomatic relief of the kidney stone. Follow-up with OBGYN clinic for further evaluation treatment of the findings on the right ovary. Return if worsening. Prescriptions: New hydrocodone-acetaminophen 5-325 mg tablet 1 tab PO Q4-6H PRN (Reason: pain) Qty: 20 0RF ondansetron HCl 4 mg tablet 4 mg PO Q6H Qty: 10 0RF ketorolac 10 mg tablet 10 mg PO Q8H 5 Days Qty: 15 0RF No Action levothyroxine 112 mcg tablet 112 mcg PO QDAY Qty: 90 0RF colestipol 1 tab PO DAILY multivitamin [Daily Multi-Vitamin] Tablet 1 tab PO QDAY cholecalciferol (vitamin D3) 25 mcg (1,000 unit) tablet 25 mcg PO QDAY norgestimate-ethinyl estradiol 0.25-35 mg-mcg tablet 1 tab PO QDAY Qty: 84 3RF gemfibrozil 600 mg tablet 600 mg PO .bidac Qty: 180 3RF hydrochlorothiazide 12.5 mg capsule 12.5 mg PO QDAY Qty: 90 1RF benzonatate 200 mg capsule 200 mg PO TID PRN (Reason: cough) Qty: 30 0RF Follow Up/Referrals: Jerica Oleary PA-C [Primary Care Provider] - Stand Alone Forms: [employer] Info Instructions
[2023-07-09] MEDS: ONDANSETRON 2 MG/ML inj 4 MG IVP (10:50)
[2023-07-09] MEDS: HYDROmorphone 0.5 mg/0.5 ml inj IVP (10:50)
[2023-07-09 10:53] LABS: Basophils Percent Auto 0.1 % (0.0-3.0); Eosinophils Percent Auto 0.1 % (0.0-7.0); Hematocrit 37.6 % (33.0-51.0); Hemoglobin* 12.6 gm/dL (12.0-16.0); Immature Granulocytes Pct Auto 0.2 %; Lymphocytes Percent Auto 7.6 % (20-44); Mean Corpuscular HGB Conc 34 gm/dL (32-36); Mean Corpuscular Hemoglobin 27 pg (26-34); Mean Corpuscular Volume 82 fL (80-100); Monocytes Percent Auto 2.9 % (0.0-11.0); Neutrophils Percent Auto 89.1 % (42.0-72.0); Platelet Count* 400 K/uL (140-440); RDW Coefficient of Variation % 12.5 % (11.5-15.5); White Blood Count* 12.38 K/uL (4.50-11.00)
[2023-07-09 10:54] LABS: Slide Review Reflex No
[2023-07-09 11:05] LABS: Chloride* 104 mmol/L (96-114); Potassium* 3.8 mmol/L (3.6-5.1); Sodium* 136 mmol/L (135-149)
[2023-07-09 11:07] LABS: Creatinine* 0.7 mg/dL (0.5-1.5); Est. Creatinine Clearance* 95.01; Estimated Glomerular Filt Rate 109 ml/min
[2023-07-09 11:08] LABS: Anion Gap 11 mEq/L (7-15); Blood Urea Nitrogen* 12 mg/dL (5-24); Calcium* 8.8 mg/dL (8.4-10.6); Carbon Dioxide* 21 mmol/L (20-32); Glucose* 118 mg/dL (60-115)
[2023-07-09 12:00] VITALS: BP 127/84; PULSE 68; RESP 18; O2SAT 99
--- NOTE | 2023-07-09 12:28 | CRLHL7_ITS ---
For Patients: As a result of the Century Cures Act, medical imaging exams and procedure reports are released immediately into your electronic medical record. You may view this report before your referring provider. If you have questions, please contact your health care provider. INDICATION: Pelvic mass seen on CT COMPARISON: Same day CT TECHNIQUE: TV: Transvaginal ultrasound of the pelvis was performed to better visualize the genitourinary organs, such as the ovaries and/or endometrium. Color-flow and spectral Doppler imaging of both ovaries is performed. FINDINGS: Reported last menstrual period: Not provided. The uterus is normal in size and position and measures 8.7 x 4.1 x 4.1 cm. There are several hypoechoic sub serosal uterine masses near the fundus and to the left of the fundus. The largest measures 2.1 cm in greatest maximum dimension. Appearance is consistent with fibroids. The endometrial stripe measures 0.5 cm in double thickness. No endometrial masses. The cervix is normal. The right ovary measures 4.1 x 3.3 x 3.5 cm. There is a 3.8 x 3.2 x 3.8 cm solid heterogeneously hypoechoic right ovarian mass. Clear internal vascularity is demonstrated. There is normal arterial and venous color Doppler flow and normal arterial and venous waveforms on duplex Doppler. The left ovary is surgically absent. No free fluid. IMPRESSION: There is a 3.8 cm solid vascular right ovarian mass. No findings of torsion. Recommend gynecologic / surgical consult. Dictated by Shereen Munoz MD @ 07/09/2023 2:35:58 PM (Electronically Signed)
[2023-07-09 13:15] LABS: Appearance Urine Clear (Clear); Bilirubin Urine Negative (Negative); Blood Urine 2+ (Negative); Color Urine Yellow (Yellow); Glucose Urine Negative (Negative); Ketones Urine Negative (Negative); Leukocyte Esterase Urine Negative (Negative); Nitrite Urine Negative (Negative); Protein Urine Negative (Negative); Urobilinogen Urine 0.2 (0.2-1.0)
[2023-07-09 13:26] LABS: WBC Urine 0-2 (0-5)
[2023-07-09 14:00] VITALS: O2SAT 98
[2023-07-09] MEDS: KETOROLAC 30 MG/ML inj IVP (14:01)
[2023-07-09 16:00] VITALS: BP 121/74; PULSE 72; RESP 18; O2SAT 97
== END 2023-07-09 16:10 | disposition home or self-care (01) ==
PROVIDERS: Emergency Provider Emergency Medicine Emergency Medical Services; PCP Physician Assistant Medical
DX: N20.1 Calculus of ureter (principal); N83.201 Unspecified ovarian cyst, right side
CPT/HCPCS: 36415; 74177; 76830; 80048; 81001; 84443; 85025; 93976; 94761; 95992; 96374; 96375; 99284; J1170; J1885; J2405; Q9967

== ENCOUNTER 2023-07-13 09:21 | Outpatient (CLI) | payer BC, SELFPAY | END 2023-07-13 09:22 | disposition home or self-care (01) | PROVIDERS: PCP Physician Assistant Medical; Visit Provider Obstetrics & Gynecology | DX: D48.9 Neoplasm of uncertain behavior, unspecified (principal); N83.8 Other noninflammatory disorders of ovary, fallopian tube and broad ligament; I10 Essential (primary) hypertension | CPT/HCPCS: 82378; 86301; 86304 ==

== ENCOUNTER 2023-08-11 10:37 | Outpatient (CLI) | payer BC, SELFPAY | END 2023-08-11 10:38 | disposition home or self-care (01) | LOC: NFLDREF 08-14 07:37 | PROVIDERS: PCP Physician Assistant Medical; Referring Provider Physician Assistant Medical; Visit Provider Physician Assistant Medical | DX: E03.9 Hypothyroidism, unspecified (principal) | CPT/HCPCS: 84443 ==

== ENCOUNTER 2023-08-12 13:56 | Outpatient (CLI) | payer BC, SELFPAY | END 2023-08-12 13:57 | disposition home or self-care (01) | LOC: FRMREF 13:57 | PROVIDERS: PCP Physician Assistant Medical; Visit Provider Family Medicine | DX: Z01.818 Encounter for other preprocedural examination (principal) | CPT/HCPCS: 80048; 87086 ==

== ENCOUNTER 2023-08-31 07:49 | Day surgery (SDC) | payer BC, SELFPAY ==
[2023-08-31] VITALS (12 sets, daily range): BP systolic 112–152; BP diastolic 65–87; PULSE 61–80; RESP 14–16; TEMP 36.2–36.9; O2SAT 95–98; BMI 46.6
[2023-08-31] MEDS: LACTATED RINGERS 1000 ML 1,000 ML 100 ML IV ×2 (07:10→10:14)
--- OUTSIDE RECORDS SUMMARY | 2023-08-31 08:00 | XMS_ITS | Encounter Summary ---
Author Name Unknown Organization [facility] Address [address] [place] [address] Care Team Providers Care Engineering Aide Name Role Phone Jerica Oleary PA-C Unavailable [phone] Jerica Oleary PA-C Primary Care Provider [phone] Reason for Visit * Reason Comments Knee Pain Encounter Details Date Type Department Care Team (Late st Contact Info) Description 05/10/2023 4:01 PM CDT - 05/10/2023 6:22 PM CDT Emergency [facility] Emergency Dept [address] [place] [address] Easton Hensley MD [facility] [address] [facility] [address] [place] [address] Acute pain of right knee; Cellulitis of right lower extremity Discharge Disposition: Home or Self Care Social History Tobacco Use Types Packs/Day Years Used Date Smoking Tobacco: Never Smokeless Tobacco: Never Alcohol Use Standard Drinks/Week Comments No 0 (1 standard drink = 0.6 oz pur e alcohol) Adolescent Education Answer Date Record ed Getting School Help Needed Not on file 05/03 Sex and Gender Information Value Date Recorded Sex Assigned at Female 06/01/2023 10:21 AM ORDER DETAILER Gender Identity Female 06/01/2023 10:21 AM ORDER DETAILER Sexual Orientation Straight 06/01/2023 10 :21 AM ORDER DETAILER documented as of this encounter Last Filed Vital Signs Vital Sign Reading Time Taken Comments Blood Pressure 144/85 05/10/2023 6:00 PM CDT Pulse 86 05/10/2023 6:00 PM CDT Temperature 36.5 ??C (97.7 ??F) 05/10/2023 2:38 PM CD T Respiratory Rate 18 05/10/2023 6:00 PM CDT Oxygen Saturation 99% 05/10/2023 6:05 PM CDT Inhaled Oxygen Concentration - - Weight - - Height - - Body Mass Index - - documented in this encounter Discharge Instructions * Attachments The following attachments cannot be sent through Care Everywhere. * Cellulitis (Maldivian) * Knee Pain or Injury (Maldivian) documented in this encounter Medications at Time of Discharge Medication Sig Dispensed Refills Start Date End Date fluticasone (FLONASE) 50 MCG/ACT nasal sprayIndications:Chr onic maxillary sinusitis [place] 2 sprays into both nostrils daily. 1 Package 11 11/23/2012 ibuprofen (ADVIL,MOTRIN) 600 MG tabletIndications:En dometriosis Take 1 tablet by mouth every 6 hours as needed for other (For mild pain or temperature greater than 102F). 30 tablet 0 10/28/2012 levothyroxine (SYNTHROID) 50 MCG tabletIndications:Hy pothyroidism Take 1 tablet by mouth every morning. 90 tablet 3 10/13/2011 minocycline (MINOCIN,DYNACIN) 50 MG capsuleIndications:A cne Take 1 capsule by mouth 2 times daily. 180 capsule 2 01/05/2013 VITAMIN D, CHOLECALCIFEROL, PO Take 2,000 Units by mouth daily. 0 cephALEXin (KEFLEX) 500 MG capsule Take 1 capsule (500 mg) by mouth 3 times daily for 7 days 21 capsule 0 05/10/2023 05/17/2023 documented as of this encounter ED Notes * Clark Morgan MD - 05/10/2023 4:04 PM CDT Tele-PIT/Intake Evaluation Video-Visit Details Type of service: Video Visit Video Start Time (time video started): 4:04 PM Video End Time (time video stopped): 4:08 PM Originating Location (pt. Location): [facility] Distant Location (provider location): [facility] Mode of Communication: Video Conference via Ta[place]ia Patient verbally consented to [facility] televisit. History: Knee pain for one week. Wednesday night start to have swelling above it. Has since noted some redness along the medial and lateral aspects of the knee, unsure what this is from but states it may be from the brace that she was wearing. She first noted the pain when she was kneeling gardening. She also states that she had daily dance practice last week and wonders if that could have caused her knee pain from overuse. Denies fevers or chills. States that she is concerned for a blood clot. Exam: General: Sitting on the ED chair HEENT: Normocephalic Cardiac: Well perfused Pulm: Breathing comfortably, no accessory muscle usage, no conversational dyspnea Neuro: Awake and alert Psych: Pleasant mood and affect Patient Vitals for the past 24 hrs: BP Temp Pulse Resp SpO2 05/10/23 1438 (!) 174/98 97.7 ??F (36.5 ??C) 88 16 98 % Appropriate interventions for symptom management were initiated if applicable. Appropriate diagnostic tests were initiated if indicated. Important information for subsequent clinician: Right knee pain and swelling and redness worsening over the last week. I briefly evaluated the patient and developed an initial plan of care. I discussed this plan and explained that this brief interaction does not constitute a full evaluation. Patient/family understands that they should wait to be fully evaluated and discuss any test results with another clinician prior to leaving the hospital. Clark Morgan MD 05/10/23 1610 * Analy Adrian RN - 05/10/2023 2:38 PM CDT Patient presents to the ED reporting right medial knee pain. States has had pain since Wednesday. Denies specific known injury, but notes was gardening when first noticed the pain. Reports 2 areas of localized redness and tenderness. Has been wearing a knee brace at home for comfort. * Easton Hensley MD - 05/10/2023 2:20 PM CDT History Chief Complaint: Knee Pain HPI Keila Whitney is a 43 year old female with right knee pain. Patient reports that last week she hurt her knee gardening. 3 days ago she began wearing a knee sleeve. Explains that after sitting through a movie 2 days ago she felt the outside of her leg get puffy. Today she noticed a redness developing this afternoon on the inside of her knee prompting her to come in. Has a history of cellulitis. Measurements of the erythema spots on her knee: Top: 2 x 4 Side medially internally 2 x 2.5 Below 3.5 x 4.5 Independent Historian: None - Patient Only Review of External Notes: None Medications: Levothyroxine Vitamin D Minocycline Past Medical History: Anxiety Ganglion Lump or mass in breast NADYA Thyroid disease Past Surgical History: Breast biopsy D&C, hysteroscopy diagnostic Excis primary ganglion wrist, right Laparoscopic cystectomy ovarian (benign) Anal fissure [place] teeth removal Physical Exam No data found. Physical Exam General: Patient is alert and cooperative. HENT: Normal appearance. Eyes: EOMI. Normal conjunctiva. Neck: Normal range of motion and appearance. Cardiovascular: Normal rate. Pulmonary/Chest: Effort normal. Abdominal: Soft. No distension or tenderness. Musculoskeletal: Normal range of motion. No knee effusion, normal rom, no calf tenderness or asymmetry. Neurological: oriented, normal strength, sensation, and coordination. Skin: two separate areas of skin erythema, medial knee/proximal lower leg. Psychiatric: Normal mood and affect. Normal behavior and judgement. Emergency Department Course Imaging: US Lower Extremity Venous Duplex Right Final Result IMPRESSION: 1. No deep venous thrombosis in the right lower extremity. XR Knee Right 3 Views Final Result IMPRESSION: 1. Normal right knee joint spacing and alignment. 2. No fracture or joint effusion. EDDIE FULLER MD SYSTEM ID: [id number] Laboratory: Labs Ordered and Resulted from Time of ED Arrival to Time of ED Departure BASIC METABOLIC PANEL - Abnormal Result Value Sodium 136 Potassium 3.6 Chloride 99 Carbon Dioxide (CO2) 24 Anion Gap 13 Urea Nitrogen 9.4 Creatinine 0.68 GFR Estimate >90 Calcium 9.4 Glucose 114 (*) MAGNESIUM - Normal Magnesium 2.0 HCG QUALITATIVE - Normal hCG Serum Qualitative Negative CBC WITH PLATELETS AND DIFFERENTIAL WBC Count 9.2 RBC Count 4.60 Hemoglobin 12.7 Hematocrit 38.1 MCV 83 MCH 27.6 MCHC 33.3 RDW 13.0 Platelet Count 422 % Neutrophils 69 % Lymphocytes 24 % Monocytes 5 Mids % (Monos, Eos, Basos) % Eosinophils 2 % Basophils 0 % Immature Granulocytes 0 NRBCs per 100 WBC 0 Absolute Neutrophils 6.2 Absolute Lymphocytes 2.2 Absolute Monocytes 0.5 Mids Abs (Monos, Eos, Basos) Absolute Eosinophils 0.2 Absolute Basophils 0.0 Absolute Immature Granulocytes 0.0 Absolute NRBCs 0.0 Procedures None Emergency Department Course & Assessments: Interventions: Medications - No data to display Assessments: 180 I obtained history and examined the patient as noted above. Consultations/Discussion of Management or Tests: None Social Determinants of Health affecting care: None Disposition: The patient was discharged to home. Impression & Plan [facility] Diagnoses: None Medical Decision Makin43 year old female with acute r knee pain; no trauma, but was kneeling, gardening last week. No hx knee problems. Exam shows erythematous changes medial knee; no knee effusion, normal rom, weightbearing. Imaging neg. Possible internal derangement, such as meniscus;cartilage injury; will cover for possible superficial cellulitis, no concern for septic arthritis. advise re-check clinic, return if worse. Diagnosis: ICD-10-CM 1. Acute pain of right knee M25.561 2. Cellulitis of right lower extremity L03.115 Discharge Medications: Discharge Medication List as of 05/10/2023 6:17 PM START taking these medications Details cephALEXin (KEFLEX) 500 MG capsule Take 1 capsule (500 mg) by mouth 3 times daily for 7 days, Disp-21 capsule, R-0, E-Prescribe Scribe Disclosure: INikita, am serving as a scribe at 5:39 PM on 05/10/2023 to document services personally performed by Easton Hensley MD based on my observations and the provider's statements to me. 05/10/2023 Easton Hensley MD Isaacson, Brian A, MD 05/13/23 1134 documented in this encounter Plan of Treatment Not on file documented as of this encounter Procedures Procedure Name Priority Date/Time Associated Diagnosis Comments US LOWER EXTREMITY VENOUS DUPLEX RIGHT STAT 05/10/2023 5:47 PM CDT XR KNEE RIGHT 3 VIEWS STAT 05/10/2023 4:26 PM CDT CBC WITH PLATELETS AND DIFFERENTIAL STAT 05/10/2023 4:17 PM CDT CBC WITH PLATELETS & DIFFERENTIAL STAT 05/10/2023 4:17 PM CDT MAGNESIUM STAT 05/10/2023 4:17 PM CDT HCG QUALITATIVE STAT 05/10/2023 4:17 PM CDT BASIC METABOLIC PANEL STAT 05/10/2023 4:17 PM CDT documented in this encounter Results * US Lower Extremity Venous Duplex Right (05/10/2023 5:47 PM CDT) Anatomical Region Laterality Modality Lower Extremity Ultrasound 05/10/2023 5:47 PM CDT Impressions 05/10/2023 5:49 PM CDT IMPRESSION: 1. ??No deep venous thrombosis in the right lower extremity. Narrative 05/10/2023 5:49 PM CDT EXAM: US LOWER EXTREMITY VENOUS DUPLEX RIGHT LOCATION: [facility] DATE: 05/10/2023 INDICATION: Right knee pain and redness COMPARISON: None. TECHNIQUE: Venous Duplex ultrasound of the right lower extremity with and without compression, augmentation and duplex. Color flow and spectral Doppler with waveform analysis performed. FINDINGS: Exam includes the common femoral, femoral, popliteal, and contralateral common femoral veins as well as segmentally visualized deep calf veins and greater saphenous vein. RIGHT: No deep vein thrombosis. No superficial thrombophlebitis. No popliteal cyst. Procedure Note Julian Charlton MD - 05/10/2023 EXAM: US LOWER EXTREMITY VENOUS DUPLEX RIGHT LOCATION: [facility] DATE: 05/10/2023 INDICATION: Right knee pain and redness COMPARISON: None. TECHNIQUE: Venous Duplex ultrasound of the right lower extremity with andwithout compression, augmentation and duplex. Color flow and spectralDoppler with waveform analysis performed. FINDINGS: Exam includes the common femoral, femoral, popliteal, andcontralateral common femoral veins as well as segmentally visualized deepcalf veins and greater saphenous vein. RIGHT: No deep vein thrombosis. No superficial thrombophlebitis. Nopopliteal cyst. IMPRESSION: 1. No deep venous thrombosis in the right lower extremity. Clark Morgan MD [facility] US ORDERABLES * XR Knee Right 3 Views (05/10/2023 4:26 PM CDT) Anatomical Region Laterality Modality Thigh, Knee, Leg Right Computed Radiog francisco Impressions 05/10/2023 4:50 PM CDT IMPRESSION: 1. ??Normal right knee joint spacing and alignment. 2. ??No fracture or joint effusion. EDDIE FULLER MD SYSTEM ID: ??[id number] Narrative 05/10/2023 4:50 PM CDT XR RIGHT KNEE THREE VIEWS ??05/10/2023 4:26 PM INDICATION: Right-sided knee pain. COMPARISON: None. Procedure Note Eddie Fuller MD - 05/10/2023 XR RIGHT KNEE THREE VIEWS 05/10/2023 4:26 PM INDICATION: Right-sided knee pain. COMPARISON: None. IMPRESSION: 1. Normal right knee joint spacing and alignment. 2. No fracture or joint effusion. EDDIE FULLER MD SYSTEM ID: [id number] Clark Morgan MD [facility] DIAGNOSTIC IMAGI NG ORDERABLES * CBC with platelets and differential (05/10/2023 4:17 PM CDT) WBC Count 9.2 4.0 - 11.0 10e3/uL 05/10/2023 4:31 PM CDT [facility] RBC Count 4.60 3.80 - 5.20 10e6/uL 05/10/2023 4:31 PM CDT [facility] Hemoglobin 12.7 11.7 - 15.7 g/dL 05/10/2023 4:31 PM CDT [facility] Hematocrit 38.1 35.0 - 47.0 % 05/10/2023 4:31 PM CDT [facility] MCV 83 78 - 100 fL 05/10/2023 4:31 PM CDT [facility] MCH 27.6 26.5 - 33.0 pg 05/10/2023 4:31 PM CDT [facility] MCHC 33.3 31.5 - 36.5 g/dL 05/10/2023 4:31 PM CDT [facility] RDW 13.0 10.0 - 15.0 % 05/10/2023 4:31 PM CDT [facility] Platelet Count 422 150 - 450 10e3/uL 05/10/2023 4:31 PM CDT [facility] % Neutrophils 69 % 05/10/2023 4:31 PM CDT [facility] % Lymphocytes 24 % 05/10/2023 4:31 PM CDT [facility] % Monocytes 5 % 05/10/2023 4:31 PM CDT [facility] Mids % (Monos, Eos, Basos) [place] 05/10/2023 4:31 PM CDT [facility] % Eosinophils 2 % 05/10/2023 4:31 PM CDT [facility] % Basophils 0 % 05/10/2023 4:31 PM CDT [facility] % Immature Granulocytes 0 % 05/10/2023 4:31 PM CDT [facility] NRBCs per 100 WBC 0 <1 /100 023 4:31 PM CDT [facility] Absolute Neutrophils 6.2 1.6 - 8.3 10e3/uL 05/10/2023 4:31 PM CDT [facility] Absolute Lymphocytes 2.2 0.8 - 5.3 10e3/uL 05/10/2023 4:31 PM CDT [facility] Absolute Monocytes 0.5 0.0 - 1.3 10e3/uL 05/10/2023 4:31 PM CDT [facility] Mids Abs (Monos, Eos, Basos) [place] 05/10/2023 4:31 PM CDT [facility] Absolute Eosinophils 0.2 0.0 - 0.7 10e3/uL 05/10/2023 4:31 PM CDT [facility] Absolute Basophils 0.0 0.0 - 0.2 10e3/uL 05/10/2023 4:31 PM CDT [facility] Absolute Immature Granulocytes 0.0 <=0.4 10e3/uL 05/10/2023 4:31 PM CDT [facility] Absolute NRBCs 0.0 10e3/uL 05/10/2023 4:31 PM CDT [facility] Blood STRUCTURE OF RIGHT UPPER LIMB / Unknown Venipuncture / Unknown 05/10/2023 4:17 PM CDT 05/10/2023 4:28 PM CDT Clark Morgan MD LAB - BLOOD ORDERABL ES Performing Organization Address [facility]/ZIP Co de Phone Number [facility] Acute Care Lab [address] Lab (1st floor, no room number) [place] [address], [facility] [phone] * HCG qualitative Blood (05/10/2023 4:17 PM CDT) hCG Serum Qualitative Negative Negative [place] 05/10/2023 5:26 PM CDT [facility] Comment:This test is for scr eening purposes. Results should be interpreted along with the clinical picture. Confirmation testing is available if warranted by ordering [id number], HCG Quantitative . Blood STRUCTURE OF RIGHT UPPER LIMB / Unknown Venipuncture / Unknown 05/10/2023 4:17 PM CDT 05/10/2023 4:28 PM CDT Clark Morgan MD LAB - BLOOD ORDERABL ES Performing Organization Address [facility]/ZIP Co de Phone Number [facility] Care Lab [address] Lab (1st floor, no room number) [place] [address], [facility] [phone] * Magnesium (05/10/2023 4:17 PM CDT) Magnesium 2.0 1.7 - 2.3 mg/dL 05/10/2023 4:53 PM CDT [facility] Blood STRUCTURE OF RIGHT UPPER LIMB / Unknown Venipuncture / Unknown 05/10/2023 4:17 PM CDT 05/10/2023 4:28 PM CDT Clark Morgan MD LAB - BLOOD ORDERABL ES [facility] Acute Care Lab [address] Lab (1st floor, no room number) [place] [address], [facility] [phone] * (ABNORMAL) Basic metabolic panel (05/10/2023 4:17 PM CDT) Sodium 136 135 - 145 mmol/L 05/10/2023 4:53 PM CDT [facility] Comment:Reference intervals for this test were updated on 04/20/2023 to more accurately reflect our healthy population. There may be differences in the flagging of prior results with similar values performed with this method. Interpretation of those prior results can be made in the context of the updated reference intervals. Potassium 3.6 3.4 - 5.3 mmol/L 05/10/2023 4:53 PM CDT LABORATORY Chloride 99 98 - 107 mmol/L 05/10/2023 4:53 PM CDT LABORATORY Carbon Dioxide (CO2) 24 22 - 29 mmol/L 05/10/2023 4:53 PM CDT [facility] Anion Gap 13 7 - 15 mmol/L 05/10/2023 4:53 PM CDT [facility] Urea Nitrogen 9.4 6.0 - 20.0 mg/dL 05/10/2023 4:53 PM CDT [facility] Creatinine 0.68 0.51 - 0.95 mg/dL 05/10/2023 4:53 PM CDT [facility] GFR Estimate >90 >60 mL/min/1. 73m2 05/10/2023 4:53 PM CDT LABORATORY Calcium 9.4 8.6 - 10.0 mg/dL 05/10/2023 4:53 PM CDT LABORATORY Glucose 114(H) 70 - 99 mg/dL 05/10/2023 4:53 PM CDT [facility] Blood STRUCTURE OF RIGHT UPPER LIMB / Unknown Venipuncture / Unknown 05/10/2023 4:17 PM CDT 05/10/2023 4:28 PM CDT Clark Morgan MD LAB - BLOOD ORDERABL ES [facility]ORAT[facility] Acute Care Lab [address] Lab (1st floor, no room number) [place] [address], [facility] [phone] documented in this encounter Visit Diagnoses Diagnosis Acute pain of right knee Cellulitis of right lower extremity Cellulitis and abscess of leg, except foot documented in this encounter Care Teams Engineering Aide Relationship Specialty Start Date End Date Jerica Oleary PA-C [place] [address] [place] [address] PCP - General 05/10/23 Jerica Oleary PA-C [place] [address] [place] [address] 05/10/23 documented as of this encounter
--- OUTSIDE RECORDS SUMMARY | 2023-08-31 08:00 | XMS_ITS | Encounter Summary ---
Author Name Unknown Organization [place] Address [address] [facility] [place] [address] Care Team Providers Care Dry Wall Installer Name Role Phone Joleen Baeza MD Primary Care Provider Jerica Oleary PA-C Unavailable [phone] Jerica Oleary PA-C Primary Care Provider [phone] Reason for Visit * Reason Onset Date Comments Refill Request 11/22/2012 Flonase Encounter Details Date Type Department Care Team (Late st Contact Info) Description 11/22/2012 MyC Refill [facility] [address] [facility] [place] [address] [place] [address] [place] [address] Refill Request (Flonase) Social History Tobacco Use Types Packs/Day Years Used Date Smoking Tobacco: Never Smokeless Tobacco: Never Alcohol Use Standard Drinks/Week Comments No 0 (1 standard drink = 0.6 oz pur e alcohol) Sex and Gender Information Value Date Recorded Sex Assigned at Female 06/01/2023 10:21 AM COLD ROLLING COORDINATOR Gender Identity Female 06/01/2023 10:21 AM COLD ROLLING COORDINATOR Sexual Orientation Straight 06/01/2023 10 :21 AM COLD ROLLING COORDINATOR documented as of this encounter Miscellaneous Notes * Telephone Encounter - Delisa Romero - 11/23/2012 7:39 AM CDT ALLERGY MEDICATION Last Office Visit R/T Diagnosis: 11/10/2012 ANTIHISTAMINES: : Samantha, Astelin, Claritin, Clarinex, Zyrtec, Vistaril May substitute via therapeutic comparison chart: SECOND GENERATION ANTIHISTAMINES NASAL STEROIDS: Aristacort/Azmacort/NasacortAQ, Azmanex, Beconase/Vancenase/QVAR/Beclovent, Flonase, Nasarel, Nasonex, Rhinocort May substitute via therapeutic comparison chart: STEROID NASAL SPRAY EPIPEN/BEE STING KIT OPHTHALMIC ALLERGY DROPS: Pantanol, Zaditor Max refills: 12 mths OV: 12 mths Medication approved per standing orders. Delisa Romero RN * Telephone Encounter - Delisa Romero - 11/23/2012 7:39 AM CDTMessage from MyChart: Original authorizing provider: MD Keila Chiang would like a refill of the following medications: fluticasone (FLONASE) 50 MCG/ACT nasal spray [Joleen Baeza MD] Preferred pharmacy: [id number] - [place], [place] - [address] Comment: It makes it easier to breath at night with my CPAP - I only need it once every few months, but I'm about to run out. :) documented in this encounter Plan of Treatment Not on file documented as of this encounter Visit Diagnoses Diagnosis Chronic maxillary sinusitis- Primary documented in this encounter Care Teams Dry Wall Installer Relationship Specialty Start Date End Date Joleen Baeza MD PCP - General Family Practice 10/13/11 05/09/23 Jerica Oleary PA-C [facility] [place] [address] [place] [address] PCP - General 05/10/23 Jerica Oleary PA-C [facility] [address] [place] [address] [place] [address] 05/10/23 documented as of this encounter
--- OUTSIDE RECORDS SUMMARY | 2023-08-31 08:00 | XMS_ITS | Referral Summary ---
Author Name Unknown Organization [place] Address [address] [place] [address] Care Team Providers Care Polysomnograph Tech Name Role Phone Jerica Oleary PA-C Unavailable [phone] Jerica Oleary PA-C Primary Care Provider [phone] Allergies Active Allergy Reactions Criticality Noted Date Comments Sulfa Antibiotics 06/06/2009 Hives Medications Medication Sig Dispensed Refills Start Date End Date Status levothyroxine (SYNTHROID) 50 MCG tabletIndications: Hypothyroidism Take 1 tablet by mouth every morning. 90 tablet 3 10/13/2011 Active VITAMIN D, CHOLECALCIFEROL, PO Take 2,000 Units by mouth daily. 0 Active ibuprofen (ADVIL,MOTRIN) 600 MG tabletIndications: Endometriosis Take 1 tablet by mouth every 6 hours as needed for other (For mild pain or temperature greater than 102F). 30 tablet 0 10/28/2012 Active fluticasone (FLONASE) 50 MCG/ACT nasal sprayIndications:C hronic maxillary sinusitis [place] 2 sprays into both nostrils daily. 1 Package 11 11/23/2012 Active minocycline (MINOCIN,DYNACIN) 50 MG capsuleIndications :Acne Take 1 capsule by mouth 2 times daily. 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 Provider to review Resolved Problems Problem Noted Date Diagnosed Date Resolved Date Elevated C-reactive protein (CRP) 08/28/2009 09/11/2011 Immunizations Name Administration Dates Next Due Influenza (IIV3) PF 04/29/2011 TDAP Vaccine (Adacel) 09/03/2008 Social History Tobacco Use Types Packs/Day Years Used Date Smoking Tobacco: Never Smokeless Tobacco: Never Alcohol Use Standard Drinks/Week Comments No 0 (1 standard drink = 0.6 oz pur e alcohol) Adolescent Education Answer Date Record ed Getting School Help Needed Not on file 05/03 Sex and Gender Information Value Date Recorded Sex Assigned at Female 06/01/2023 10:21 AM MANAGER LOCAL Gender Identity Female 06/01/2023 10:21 AM MANAGER LOCAL Sexual Orientation Straight 06/01/2023 10 :21 AM MANAGER LOCAL Last Filed Vital Signs Vital Sign Reading Time Taken Comments Blood Pressure 144/85 05/10/2023 6:00 PM CDT Pulse 86 05/10/2023 6:00 PM CDT Temperature 36.5 ??C (97.7 ??F) 05/10/2023 2:38 PM CD T Respiratory Rate 18 05/10/2023 6:00 PM CDT Oxygen Saturation 99% 05/10/2023 6:05 PM CDT Inhaled Oxygen Concentration - - Weight 108.4 kg (239 lb) 11/10/2012 3:31 PM CDT Height 167.6 cm (5' 6) 11/10/2012 3:31 PM CDT Body Mass Index 38.58 11/10/2012 3:31 PM CDT Plan of Treatment Not on file Care Teams Polysomnograph Tech Relationship Specialty Start Date End Date Jerica Oleary PA-C [address] [address] PCP - General 05/10/23 Jerica Oleary PA-C [place] [address] [place] [address] 05/10/23
--- OUTSIDE RECORDS SUMMARY | 2023-08-31 08:00 | XMS_ITS | Clinical Summary ---
Author Name Unknown Organization [facility] [facility] [employer] Address [place], [place] [address] Care Team Providers Care Quality Assurance Monitor Body Name Role Phone Pcp, No Primary Care Provider Unavailabl e Allergies Active Allergy Reactions Criticality Noted Date Comments Metronidazole Other - Describe In Comment Field 02/04/2017 Nerve damage Melatonin Other - Describe In Comment Field 03/24/2018 Interferes with estrogen absorbtion Sulfa (Sulfonamide Antibiotics) Hives 02/11/2016 Medications Medication Sig Dispensed Refills Start Date End Date Status norgestimate-ethinyl estradiol, 0.25-35 mg-mcg, (SPRINTEC) 0.25-35 mg-mcg tablet Take 1 tablet by mouth once daily. 1 Package 0 02/11/2016 Active vitamin D3-vitamin K2, MK4, 1,000-100 unit-mcg tab Take by mouth. 0 09/02/2016 Active gemfibrozil (LOPID) 600 mg tablet Take 1 tablet by mouth 2 times daily before meals. 0 05/04/2019 Active multivitamins-calciu t-mfrp-bwquxyao (Multiple Vitamin, Womens) tab tablet Take 1 Tablet by mouth once daily. 0 08/07/2021 Active levothyroxine (SYNTHROID) 100 mcg tablet Take one daily 0 09/10/2021 Active CPAPIndications:Obst ructive sleep apnea on CPAP CPAP machine for home use at pressure 10, full face mask x1/3month with a full face cushion x1/mo, lifetime length of need, daily use 1 Each 11 09/17/2022 Active colestipoL (COLESTID) 1 gram tabletIndications:Di arrhea, unspecified type,Bile salt-induced diarrhea Take 4 Tablets (4 g) by mouth once daily. 360 Tablet 3 02/11/2023 Active Active Problems Problem Noted Date Diagnosed Date NADYA (obstructive sleep apnea) 07/07/2017 Encounters Date Type Department Care Team Description 06/16/2023 Refill [facility] [address] [place] [place] [address] Joey Smiley MD Refill Request (cpap rx) from Last 3 Months Immunizations Name Administration Dates Next Due Influenza A (H1N1), Inactivated 08/06/2009 Influenza, IIV3 (Age >=3 years) 04/27/2013,04/28,05/08/2010 Influenza, IIV4 03/16/2021 Influenza, Live, Intranasal Laiv3 04/30/2011 Td, Preservative Free (age >= 7 Years) 4 Tdap 07/01/2018,03/02/2013,09/03/2008 Family History Medical History Relation Name Comments Sleep apnea Other Relation Name Status Comments Other Social History Tobacco Use Types Packs/Day Years Used Date Smoking Tobacco: Never Smokeless Tobacco: Never Tobacco Cessation:Counseling Given: No Alcohol Use Standard Drinks/Week Comments No 0 (1 standard drink = 0.6 oz pur e alcohol) Social Connections Answer Date Recorded Frequency of Communication with Friends and Fami ly Not on file 07/26/2021 Financial Resource Strain Answer Date R ecorded Difficulty of Paying Living Expenses Not on file 07/26/2021 Difficulty of Paying Living Expenses Not on file 07/26/2021 Sex and Gender Information Value Date Recorded Sex Assigned at Not on file Gender Identity Not on file Sexual Orientation Not on file Obstetrics History Last Filed Vital Signs Vital Sign Reading Time Taken Comments Blood Pressure 118/66 09/04/2019 3:43 PM WEB SYSTEMS DEVELOPER Pulse 77 09/04/2019 3:43 PM WEB SYSTEMS DEVELOPER Temperature 36.9 ??C (98.4 ??F) 02/04/2017 2:15 PM CD T Respiratory Rate 18 09/04/2019 3:43 PM WEB SYSTEMS DEVELOPER Oxygen Saturation 97% 09/04/2019 3:43 PM WEB SYSTEMS DEVELOPER RA rest Inhaled Oxygen Concentration - - Weight 119.3 kg (263 lb) 09/04/2019 3:43 PM WEB SYSTEMS DEVELOPER Height 167.6 cm (5' 6) 09/04/2019 3:43 PM WEB SYSTEMS DEVELOPER Body Mass Index 42.45 09/04/2019 3:43 PM WEB SYSTEMS DEVELOPER Plan of Treatment Upcoming Encounters Date Type Department Care Team (Late st Contact Info) Description 09/20/2023 3:30 PM WEB SYSTEMS DEVELOPER Telemedicine [employer] [facility] [address] [place] [address] Joey Smiley MD [address] [place] [address] Health Maintenance Due Date Last Done Comments Depression screening for age 12+ 1990 HIV for age 15-65 1993 Hepatitis C screening for age 18-79 01/18/1996 BMI (ht and wt on same day) for age 18+ 09/04/2020 09/04/2019, 07/07/2017, 09/02/2016, Additional history exists Colonoscopy through age 75 2023 Lipids for age 45-75 2023 Mammogram for age 45-75 2023 COVID-19 vaccine series ( season) 2023 03/28/2022, 05/16/2021, 10/18/2020, Additional history exists Influenza for age 9-49 03/26/2023 1, 04/27/2013, 04/28/2012, Additional history exists Pap test for age 21-65 09/10/2024 2, 09/10/2020, 08/19/2015, Additional history exists Tetanus booster 07/01/2028 07/01/2018, 10/24, 03/02/2013, Additional history exists Tdap Completed 07/01/2018, 02/2013, 09/03/2008 Pneumococcal series for age 6-64 Aged Out No longer eligible based on patient's age to complete this topic Care Teams Quality Assurance Monitor Body Relationship Specialty Start Date End Date Pcp, No . PCP - General 01/06/23
--- OUTSIDE RECORDS SUMMARY | 2023-08-31 08:00 | XMS_ITS | Encounter Summary ---
Author Name Unknown Organization [place] Address [address] [facility] [place] [address] Care Team Providers Care Technology Applications Teacher Name Role Phone Joleen Baeza MD Primary Care Provider Jerica Oleary PA-C Unavailable [phone] Jerica Oleary PA-C Primary Care Provider [phone] Reason for Visit * Reason Onset Date Comments Pt. Information/instruction 11/23/2012 Encounter Details Date Type Department Care Team (Late st Contact Info) Description 11/23/2012 MyC Medical Advice [facility] [address] [facility], [address] [place] [address] [place] [address] [place], [place] [id number] Pt. Information/instruct ion Social History Tobacco Use Types Packs/Day Years Used Date Smoking Tobacco: Never Smokeless Tobacco: Never Alcohol Use Standard Drinks/Week Comments No 0 (1 standard drink = 0.6 oz pur e alcohol) Sex and Gender Information Value Date Recorded Sex Assigned at Female 06/01/2023 10:21 AM SPAR MACHINE OPERATOR Gender Identity Female 06/01/2023 10:21 AM SPAR MACHINE OPERATOR Sexual Orientation Straight 06/01/2023 10 :21 AM SPAR MACHINE OPERATOR documented as of this encounter Plan of Treatment Not on file documented as of this encounter Visit Diagnoses Not on filedocumented in this encounter Care Teams Technology Applications Teacher Relationship Specialty Start Date End Date Joleen Baeza MD PCP - General Family Practice 10/13/11 05/09/23 Jerica Oleary PA-C [place] [address] [place] [address] PCP - General 05/10/23 Jerica Oleary PA-C [place] [address] [place] [address] 05/10/23 documented as of this encounter
--- OUTSIDE RECORDS SUMMARY | 2023-08-31 08:00 | XMS_ITS | Encounter Summary ---
Author Name Unknown Organization [place] Address [address] [place] [address] Care Team Providers Care Gaming Investigator Name Role Phone Jerica Oleary PA-C Unavailable [phone] Jerica Oleary PA-C Primary Care Provider [phone] Encounter Details Date Type Department Care Team (Latest Contact Info) Description 05/10/2023 Travel Social History Tobacco Use Types Packs/Day Years Used Date Smoking Tobacco: Never Smokeless Tobacco: Never Alcohol Use Standard Drinks/Week Comments No 0 (1 standard drink = 0.6 oz pur e alcohol) Adolescent Education Answer Date Record ed Getting School Help Needed Not on file 05/03 Sex and Gender Information Value Date Recorded Sex Assigned at Female 06/01/2023 10:21 AM GREEN LUMBER GRADER Gender Identity Female 06/01/2023 10:21 AM GREEN LUMBER GRADER Sexual Orientation Straight 06/01/2023 10 :21 AM GREEN LUMBER GRADER documented as of this encounter Plan of Treatment Not on file documented as of this encounter Visit Diagnoses Not on filedocumented in this encounter Care Teams Gaming Investigator Relationship Specialty Start Date End Date Jerica Oleary PA-C [place] [address] [place] [address] PCP - General 05/10/23 Jerica Oleary PA-C [place] [id number] [place] [address] 05/10/23 documented as of this encounter
--- OUTSIDE RECORDS SUMMARY | 2023-08-31 08:00 | XMS_ITS | Clinical Summary ---
Author Name Unknown Organization [place] Address [address] [place] [address] Care Team Providers Care Plant Puller Name Role Phone Jerica Oleary PA-C Unavailable [phone] Jerica Oleary PA-C Primary Care Provider [phone] Allergies Active Allergy Reactions Criticality Noted Date [...] 50 MCG/ACT nasal sprayIndications:C hronic maxillary sinusitis [place] 2 sprays into both nostrils daily. 1 [...] (IIV3) PF 04/29/2011 TDAP Vaccine (Adacel) 09/03/2008 Family History Medical History Relation Comments Allergies Father Lipids Father Obesity Father Respiratory Father nasal polyps Thyroid Disease Father Cancer Maternal Grandfather Prostate ca ncer Dx 68, 78 Arthritis Maternal Grandmother Breast Cancer Maternal Grandmother 85 at diagn osis, still living today at 90+ Hypertension Mother Cancer Paternal Grandfather Bone Cancer Dx 70's h/o occupational exposures Diabetes Paternal Grandfather Obesity Paternal Grandmother Allergies Sister 1 Obesity Sister 2 Relation Status Comments Brother 1 Alive Brother 2 Alive Father Alive Maternal Grandfather Maternal Grandmother Mother Alive Paternal Grandfather Paternal Grandmother Sister 1 Alive Sister 2 Social History Tobacco Use Types Packs/Day Years Used Date Smoking Tobacco: Never Smokeless Tobacco: Never Alcohol Use Standard Drinks/Week Comments No 0 (1 standard drink = 0.6 oz pur e alcohol) Adolescent Education Answer Date Record ed Getting School Help Needed Not on file 05/03 Sex and Gender Information Value Date Recorded Sex Assigned at Female 06/01/2023 10:21 AM COMPREHENSIVE ADVISOR Gender Identity Female 06/01/2023 10:21 AM COMPREHENSIVE ADVISOR Sexual Orientation Straight 06/01/2023 10 :21 AM COMPREHENSIVE ADVISOR Last Filed Vital Signs Vital Sign Reading [...] 11/10/2012 3:31 PM CDT Plan of Treatment Health Maintenance Due Date Last Done Comments ADVANCE CARE PLANNING 1978 ANNUAL REVIEW OF HM ORDERS 1978 CT COLONOGRAPHY 1978 FIT 1978 FLEX SIG 1978 HEPATITIS B IMMUNIZATION (1 of 3 - 3-dose series) 1978 sDNA (Cologuard) 1978 COLONOSCOPY 01/18/1988 COLORECTAL CANCER SCREENING 01/18/1988 HIV SCREENING 1993 HEPATITIS C SCREENING 01/18/1996 MAMMO SCREENING 02/12/2007 02/12/2005 YEARLY PREVENTIVE VISIT 09/12/2011 09/12/19 11, 08/28/2009, 10/21/2005 PAP 09/12/2013 09/12/2010, 08/28/2009 TSH W/FREE T4 REFLEX 11/10/2013 11/10/2012, 09/11/2011, 08/26/2010, Additional history exists LIPID 2018 08/28/2010, 06/19/2009 COVID-19 Vaccine ( season) 2023 03/28/2022, 05/16/2021, 10/18/2020, Additional history exists INFLUENZA VACCINE (#1) 2023 , 03/16/2021, 04/27/2013, Additional history exists PHQ-2 (once per calendar year) 2023 GLUCOSE 05/10/2026 05/10/2023, 10/24, 08/28/2010, Additional history exists DTAP/TDAP/TD IMMUNIZATION (5 - Td or Tdap) 07/01/2028 07/01/2018, 11/09/2013, 03/02/2013, Additional history exists HPV IMMUNIZATION Aged Out No longer e ligible based on patient's age to complete this topic IPV IMMUNIZATION Aged Out No longer e ligible based on patient's age to complete this topic MENINGITIS IMMUNIZATION Aged Out No l onger eligible based on patient's age to complete this topic Pneumococcal Vaccine: Pediatrics (0 to 5 Years) and At-Risk Patients (6 to 64 Years) Aged Out No longer eligible based on patient's age to complete this topic RSV MONOCLONAL ANTIBODY Aged Out No l onger eligible based on patient's age to complete this topic Care Teams Plant Puller Relationship Specialty Start Date End Date Jerica Oleary PA-C [address] [place] [address] PCP - General 05/10/23 Jerica Oleary PA-C [address] [place], [place] [id number] 05/10/23
[2023-08-31] MEDS: SCOPOLAMINE 1 MG/3 DAY PATCH 1 PATCH TRANSDERMA (08:15)
[2023-08-31] MEDS: SODIUM CHLORIDE 0.9 % (FLUSH) 10 ML SYRINGE IVF (08:19)
[2023-08-31 08:22] LABS: Ur HCG Qualitative* Negative (Negative)
--- NOTE | 2023-08-31 08:42 | P.PCN_ITS ---
Procedure Note Time Seen by Provider: Date Seen: 08/31/23 Date of procedure: 08/31/23 Will [facility] bill your pro fee for this procedure?: Yes Procedure: Preoperative diagnosis: 43-year-old with right adnexal mass. Postoperative diagnosis: Same. Pedunculated anterior fibroid measuring approximately 3 cm in diameter, normal right ovary, normal right fallopian tube, left fallopian tube surgically absent Procedure: Pelvic washings, Laparoscopic Right salpingectomy, myomectomy. Anesthesia: General endotracheal, local Surgeon: Andreea Zee MD Head Tennis Professional: Essie Rutledge mD EBL: 50 mL Urine output: 200 mL clear urine IVF: 1300 ml Specimen: Right tube, uterine fibroid to pathology Findings: On exam under anesthesia: The uterus was mid position, 10 week size, mobile, without masses or nodularity palpable but exam was limited secondary to patient body habitus. Adnexa were without mass or fullness bilaterally. The uterus sounded to 10 cm. On laparoscopy: The uterus had multiple fibroids with 2 subserosal fibroids at the fundus and an anterior pedunculated fibroid that was tilted toward the right side of the pelvis. This was the suspected ovarian mass that was noted on CT and ultrasound. The right ovary was adherent to the right pelvic sidewall but it was normal in appearance with no evidence of active endometriosis. Right fallopian tube was normal. The left fallopian tube and left ovary were surgically absent. The liver appeared normal. The gallbladder was surgically absent. Appendix appeared normal Procedure: Anne-Marie was taken to the operating room where general anesthetic was found to be adequate. She was placed in the dorsal lithotomy position and an exam under anesthesia was performed with findings stated above. She was then prepped and draped in a normal sterile manner. A Gamez catheter was then placed. A bivalve speculum was then placed in the vaginal canal to visualize the cervix. The anterior lip of the cervix was grasped with an a long Allis clamp. The cervix w as dilated to Hegar 6. Uterus was sounded to 10 cm. A [employer] uterine manipulator was then placed. Attention was then turned to performing the laparoscopic portion of the procedure. All incisions were injected with 0.5% Marcaine prior to incision. A vertical 5 mm infraumbilical, incision, was made and a 5 mm trocar placed under direct visualization with the laparoscope. The abdomen was then insufflated with carbon dioxide gas to a pressure of 15 mm of mercury. To bilateral lower quadrant trocars were then placed under direct visualization. Both were placed approximately 3-4 finger breaths medial to the ischial crests. The left trocar was 5 mm the right trocar was 11 mm. A diagnostic laparoscopy was then performed with findings stated above. Approximately 100 mL of saline was instilled into the pelvis for pelvic washings and then removed with 60 mL syringe. The decision was made to perform a right salpingectomy and myomectomy of the pedunculated anterior fibroid. The right fallopian tube was identified, grasped with a forceps at the fimbriated end and the PowerSeal dissecting forceps was used to form sequential pedicles toward the cornua. The fallopian tube was removed in 2 sections with the 1st section being the fimbriated end along with most of the fallopian tube. The 2nd section was a small amount of tube at the cornua. Excellent hemostasis was noted. The sections of fallopian tubes were removed through the right trocar. The left fallopian tube was surgically absent. Attention was then turned performing the myomectomy. The power seal dissecting forceps was used to cauterize and remove the anterior fibroid from its pedunculated pedicle. An Endo-Catch bag was advanced through the 11 mm port and the fibroid removed through the 11 mm port incision. This incision was extended to approximately 3 cm in length under to remove the fibroid in the Endo-Catch bag. The pelvis was irrigated and the pedicles were noted to be hemostatic. Ayush was applied to the anterior uterine wall and hemostasis again verified. The fascia was then grasped with 2 Rodney clamps and the other 2 ports removed under direct visualization. The fascia of the left lower quadrant incision was reapproximated using 0 Vicryl in a running manner. All skin incisions were reapproximated using 4-0 Monocryl in a running subcuticular manner. Exofin skin adhesive was then applied to each incision. The uterine manipulator and Gamez catheter were removed. The patient tolerated this procedure well. Sponge, lap and instrument counts were correct x2 at the end of the procedure and the patient was taken to the recovery area in stable condition.
--- NOTE | 2023-08-31 08:47 | W.PM.H&PU ---
History & Physical Update History & Physical Update H&P Reviewed and patient assessed: No changes noted
--- NOTE | 2023-08-31 10:26 | W.ANESCHARGE ---
Anesthesia Charges Start Date/Time Anesthesia Start Date: 08/31/23 Anesthesia Start Time: 08:18 Stop Date/Time Anesthesia Stop Date: 08/31/23 Anesthesia Stop Time: 10:29
[2023-08-31] MEDS: hydrOXYzine pamoate 25 MG CAPSULE PO (11:32)
== END 2023-08-31 12:25 | disposition home or self-care (01) ==
PROVIDERS: PCP Physician Assistant Medical; Visit Provider Obstetrics & Gynecology
PROC: (CPT 58661; principal; 2023-08-31 09:00)
DX: D25.2 Subserosal leiomyoma of uterus (principal); N83.8 Other noninflammatory disorders of ovary, fallopian tube and broad ligament
CPT/HCPCS: 58561; 58545; 00840; 81025; 88112; 88305; A9270; J0330; J1100; J1885; J2250; J2405; J2704; J3010; J3490; J7120

== ENCOUNTER 2023-09-15 09:43 | Outpatient (CLI) | payer BC, SELFPAY ==
--- OUTSIDE RECORDS SUMMARY | 2023-09-15 10:01 | XMS_ITS | Clinical Summary ---
Author Name Unknown Organization [place] Address [address] [place] [address] Care Team Providers Care Decision Support Manager Name Role Phone Jerica Oleary PA-C Unavailable [phone] Jerica Oleary PA-C Primary Care Provider Allergies Active Allergy Reactions Criticality Noted Date [...] 50 MCG/ACT nasal sprayIndications:C hronic maxillary sinusitis [place] 2 sprays into both nostrils daily. 1 [...] Sex Assigned at Female 06/01/2023 10:21 AM METAL PAINTER Gender Identity Female 06/01/2023 10:21 AM METAL PAINTER Sexual Orientation Straight 06/01/2023 10 :21 AM METAL PAINTER Last Filed Vital Signs Vital Sign Reading [...] age to complete this topic Care Teams Decision Support Manager Relationship Specialty Start Date End Date Jerica Oleary PA-C [address] [place] [address] PCP - General 05/10/23 Jerica Oleary PA-C [address] [place], [place] [address] 05/10/23
--- OUTSIDE RECORDS SUMMARY | 2023-09-15 10:02 | XMS_ITS | Encounter Summary ---
Author Name Unknown Organization [place] Address [address] [facility] [place] [address] Care Team Providers Care Etl Informatica Developer Name Role Phone Joleen Baeza MD Primary Care Provider Jerica Oleary PA-C Unavailable [phone] Jerica Oleary PA-C Primary Care Provider [phone] Reason for Visit * Reason Onset Date Comments Pt. Information/instruction 11/23/2012 Encounter Details Date Type Department Care Team (Late st Contact Info) Description 11/23/[address] [facility] [address] [facility], [address] [place] [address] [place] [address] [place], [place] [id number] Pt. Information/instruct ion Social History Tobacco Use Types Packs/Day Years Used Date Smoking Tobacco: Never Smokeless Tobacco: Never Alcohol Use Standard Drinks/Week Comments No 0 (1 standard drink = 0.6 oz pur e alcohol) Sex and Gender Information Value Date Recorded Sex Assigned at Female 06/01/2023 10:21 AM SERVICE DESK ASSOCIATE Gender Identity Female 06/01/2023 10:21 AM SERVICE DESK ASSOCIATE Sexual Orientation Straight 06/01/2023 10 :21 AM SERVICE DESK ASSOCIATE documented as of this encounter Plan of Treatment Not on file documented as of this encounter Visit Diagnoses Not on filedocumented in this encounter Care Teams Etl Informatica Developer Relationship Specialty Start Date End Date Joleen Baeza MD PCP - General Family Practice 10/13/11 05/09/23 Jerica Oleary PA-C [place] [address] [address] [place] [address] PCP - General 05/10/23 Jerica Oleary PA-C [place] [address] [place] [address] 05/10/23 documented as of this encounter
--- OUTSIDE RECORDS SUMMARY | 2023-09-15 10:02 | XMS_ITS | Encounter Summary ---
Author Name Unknown Organization [place] Address [address] [facility] [place] [address] Care Team Providers Care Jewelry Coater Name Role Phone Joleen Baeza MD Primary Care Provider Jerica Oleary PA-C Unavailable [phone] Jerica Oleary PA-C Primary Care Provider Reason for Visit * Reason Onset Date Comments Refill Request 11/22/2012 Flonase Encounter Details Date Type Department Care Team (Late st Contact Info) Description 11/22/[address] [facility] [address] [address], [address] [place] [address] [place] [address] [place] [address] Refill Request (Flonase) Social History Tobacco Use Types Packs/Day Years Used Date Smoking Tobacco: Never Smokeless Tobacco: Never Alcohol Use Standard Drinks/Week Comments No 0 (1 standard drink = 0.6 oz pur e alcohol) Sex and Gender Information Value Date Recorded Sex Assigned at Female 06/01/2023 10:21 AM ELECTRONIC EQUIPMENT MAINT TECH Gender Identity Female 06/01/2023 10:21 AM ELECTRONIC EQUIPMENT MAINT TECH Sexual Orientation Straight 06/01/2023 10 :21 AM ELECTRONIC EQUIPMENT MAINT TECH documented as of this encounter Miscellaneous Notes [...] nasal spray [Joleen Baeza MD] Preferred pharmacy: [id number] [place] - [address] [address] Comment: It makes it easier to breath at night with my CPAP - I only need it once every few months, but I'm about to run out. :) documented in this encounter Plan of Treatment Not on file documented as of this encounter Visit Diagnoses Diagnosis Chronic maxillary sinusitis- Primary documented in this encounter Care Teams Jewelry Coater Relationship Specialty Start Date End Date oJleen Baeza MD PCP - General Family Practice 10/13/11 05/09/23 Jerica Oleary PA-C [facility] [place] [address] [place] [address] PCP - General 05/10/23 Jerica Oleary PA-C [facility] [address] [place] [address] [address] [address] 05/10/23 documented as of this encounter
--- OUTSIDE RECORDS SUMMARY | 2023-09-15 10:02 | XMS_ITS | Referral Summary ---
Author Name Unknown Organization [place] Address [address] [place] [address] Care Team Providers Care Sports Media Name Role Phone Jerica Oleary PA-C Unavailable Jerica Oleary PA-C Primary Care Provider [phone] Allergies Active Allergy Reactions Criticality Noted Date [...] 50 MCG/ACT nasal sprayIndications:C hronic maxillary sinusitis [place] 2 sprays into both nostrils daily. 1 [...] Sex Assigned at Female 06/01/2023 10:21 AM FLOOR SCRAPER Gender Identity Female 06/01/2023 10:21 AM FLOOR SCRAPER Sexual Orientation Straight 06/01/2023 10 :21 AM FLOOR SCRAPER Last Filed Vital Signs Vital Sign Reading [...] of Treatment Not on file Care Teams Sports Media Relationship Specialty Start Date End Date Jerica Oleary PA-C [address] [place] [address] PCP - General 05/10/23 Jerica Oleary PA-C [place] [address] [place] [address] 05/10/23
--- OUTSIDE RECORDS SUMMARY | 2023-09-15 10:02 | XMS_ITS | Encounter Summary ---
Author Name Unknown Organization [place] Address [address] [place] [address] Care Team Providers Care Housekeeping Worker Name Role Phone Jerica Oleary PA-C Unavailable [phone] Jerica Oleary PA-C Primary Care Provider [phone] Reason for Visit * Reason Comments Knee Pain Encounter Details Date Type Department Care Team (Late st Contact Info) Description 05/10/2023 4:01 PM CDT - 05/10/2023 6:22 PM CDT Emergency [facility] Emergency Dept [address] [place] [address] Easton Hensley MD [facility] [address] [facility] [address] [place] [address] Acute pain of right knee; [...] Sex Assigned at Female 06/01/2023 10:21 AM PACKAGE WRAPPER Gender Identity Female 06/01/2023 10:21 AM PACKAGE WRAPPER Sexual Orientation Straight 06/01/2023 10 :21 AM PACKAGE WRAPPER documented as of this encounter Last Filed [...] be sent through Care Everywhere. * Cellulitis (Belizean) * Knee Pain or Injury (Belizean) documented in this encounter Medications at Time of Discharge Medication Sig Dispensed Refills Start Date End Date fluticasone (FLONASE) 50 MCG/ACT nasal sprayIndications:Chr onic maxillary sinusitis [place] 2 sprays into both nostrils daily. 1 [...] of this encounter ED Notes * Clark Morgna MD - 05/10/2023 4:04 PM CDT Tele-PIT/Intake Evaluation Video-Visit Details Type of service: Video Visit Video Start Time (time video started): 4:04 PM Video End Time (time video stopped): 4:08 PM Originating Location (pt. Location): [facility] Distant Location (provider location): [facility] Mode of Communication: Video Conference via AllTrails Patient verbally consented to [employer] televisit. History: Knee pain for one week. [...] right Laparoscopic cystectomy ovarian (benign) Anal fissure [place] teeth removal Physical Exam No data found. [...] joint effusion. EDDIE FULLER MD SYSTEM ID: [id number] Laboratory: Labs Ordered and Resulted from Time [...] was discharged to home. Impression & Plan [facility] Diagnoses: None Medical Decision Makin43 year old [...] US LOWER EXTREMITY VENOUS DUPLEX RIGHT LOCATION: [facility] DATE: 05/10/2023 INDICATION: Right knee pain and [...] US LOWER EXTREMITY VENOUS DUPLEX RIGHT LOCATION: [facility] DATE: 05/10/2023 INDICATION: Right knee pain and [...] the right lower extremity. Clark Morgan MD [facility] US ORDERABLES * XR Knee Right 3 Views (05/10/2023 4:26 PM CDT) Anatomical Region Laterality Modality Thigh, Knee, Leg Right Computed Radiog francisco Impressions 05/10/2023 4:50 PM CDT IMPRESSION: 1. ??Normal right knee joint spacing and alignment. 2. ??No fracture or joint effusion. EDDIE FULLER MD SYSTEM ID: ??[id number] Narrative 05/10/2023 4:50 PM CDT XR RIGHT KNEE THREE VIEWS ??05/10/2023 4:26 PM INDICATION: Right-sided knee pain. COMPARISON: None. Procedure Note Eddie Fuller MD - 05/10/2023 XR RIGHT KNEE THREE VIEWS 05/10/2023 4:26 PM INDICATION: Right-sided knee pain. COMPARISON: None. IMPRESSION: 1. Normal right knee joint spacing and alignment. 2. No fracture or joint effusion. EDDIE FULLER MD SYSTEM ID: [id number] Clark Morgan MD [facility] DIAGNOSTIC IMAGI NG ORDERABLES * CBC with [...] - BLOOD ORDERABL ES Performing Organization Address [facility]/ZIP Co de Phone Number [facility] Acute Care Lab [address] Lab (1st floor, no room number) [place] [address], [facility] [phone] * HCG qualitative Blood (05/10/2023 4:17 PM CDT) hCG Serum Qualitative Negative Negative [place] 05/10/2023 5:26 PM CDT [facility] Comment:This test is for scr eening purposes. Results should be interpreted along with the clinical picture. Confirmation testing is available if warranted by ordering [id number], HCG Quantitative . Blood STRUCTURE OF RIGHT UPPER LIMB / Unknown Venipuncture / Unknown 05/10/2023 4:17 PM CDT 05/10/2023 4:28 PM CDT Clark Morgan MD LAB - BLOOD ORDERABL ES Performing Organization Address [facility]/ZIP Co de Phone Number [facility] Care Lab [address] Lab (1st floor, no room number) [place] [address], [facility] [phone] * Magnesium (05/10/2023 4:17 PM CDT) Magnesium 2.0 1.7 - 2.3 mg/dL 05/10/2023 4:53 PM CDT [facility] Blood STRUCTURE OF RIGHT UPPER LIMB / Unknown Venipuncture / Unknown 05/10/2023 4:17 PM CDT 05/10/2023 4:28 PM CDT Clark Morgan MD LAB - BLOOD ORDERABL ES [facility] Acute Care Lab [address] Lab (1st floor, no room number) [place] [address], [facility] [phone] * (ABNORMAL) Basic metabolic panel (05/10/2023 4:17 [...] MD LAB - BLOOD ORDERABL [facility] LABORATORY [facility] Acute Care Lab [address] Lab (1st floor, no room number) [place] [address], [facility] [phone] documented in this encounter Visit Diagnoses Diagnosis Acute pain of right knee Cellulitis of right lower extremity Cellulitis and abscess of leg, except foot documented in this encounter Care Teams Housekeeping Worker Relationship Specialty Start Date End Date Jerica Oleary PA-C [place] [address] [place] [address] PCP - General 05/10/23 Jerica Oleary PA-C [place] [address] [address] [place] [address] 05/10/23 documented as of this encounter
--- OUTSIDE RECORDS SUMMARY | 2023-09-15 10:02 | XMS_ITS | Clinical Summary ---
Author Name Unknown Organization [facility] Address [place], [place] [address] Care Team Providers Care Metal Technician Name Role Phone Pcp, No Primary Care [...] daily before meals. 0 05/04/2019 Active multivitamins-calciu a-prim-ozszqdyx (Multiple Vitamin, Womens) tab tablet Take 1 [...] Encounters Date Type Department Care Team Description 08/31/2023 Lab Requisition [facility] [phone] Andreea Zee MD 08/31/2023 Lab Requisition [facility] [phone] Andreea Zee MD 06/16/2023 Refill [facility] [address] [place] [address] [address] [place] [address] Joey Smiley MD Refill Request [...] Comments Blood Pressure 118/66 09/04/2019 3:43 PM PER DIEM PHYSICAL THERAPIST Pulse 77 09/04/2019 3:43 PM PER DIEM PHYSICAL THERAPIST Temperature 36.9 ??C (98.4 ??F) 02/04/2017 2:15 PM CD T Respiratory Rate 18 09/04/2019 3:43 PM PER DIEM PHYSICAL THERAPIST Oxygen Saturation 97% 09/04/2019 3:43 PM PER DIEM PHYSICAL THERAPIST RA rest Inhaled Oxygen Concentration - - Weight 119.3 kg (263 lb) 09/04/2019 3:43 PM PER DIEM PHYSICAL THERAPIST Height 167.6 cm (5' 6) 09/04/2019 3:43 PM PER DIEM PHYSICAL THERAPIST Body Mass Index 42.45 09/04/2019 3:43 PM PER DIEM PHYSICAL THERAPIST Plan of Treatment Upcoming Encounters Date Type Department Care Team (Late st Contact Info) Description 09/20/2023 3:30 PM PER DIEM PHYSICAL THERAPIST Telemedicine [facility] [address] [place] [address] Joey Smiley MD [address] [place] [address] Health Maintenance Due Date Last Done Comments Depression screening for age 12+ 1990 HIV for age 15-65 1993 Hepatitis C screening for age 18-79 01/18/1996 BMI (ht and wt on same day) for age 18+ 09/04/2020 09/04/2019, 07/07/2017, 09/02/2016, Additional history exists Colonoscopy through age 75 2023 Lipids for age 45-75 2023 Mammogram for age 45-75 2023 COVID-19 vaccine series (2022- season) 2023 03/28/2022, 05/16/2021, 10/18/2020, Additional history exists Influenza for age 9-49 03/26/2023 1, 04/27/2013, 04/28/2012, Additional history exists Pap test for age 21-65 09/10/2024 2, 09/10/2020, 08/19/2015, Additional history exists Tetanus booster 07/01/2028 07/01/2018, 10/24, 03/02/2013, Additional history exists Tdap Completed 07/01/2018, 02/2013, 09/03/2008 Pneumococcal series for age 6-64 Aged Out No longer eligible based on patient's age to complete this topic Procedures Procedure Name Priority Date/Time Associated Diagnosis Comments LAB TRACKING EVENT Routine 08/31/2023 12 :00 PM PER DIEM PHYSICAL THERAPIST PATH FNA CYTOLOGY ASP CYTOLOGY Routine 08/31/2023 12:00 PM PER DIEM PHYSICAL THERAPIST LAB TRACKING EVENT Routine 08/31/2023 9: 38 AM PER DIEM PHYSICAL THERAPIST PATH TISSUE EXAM Routine 08/31/2023 9:38 AM PER DIEM PHYSICAL THERAPIST from Last 3 Months Results * LAB TRACKING EVENT (08/31/2023 12:00 PM PER DIEM PHYSICAL THERAPIST) Only the most recent of2 resultswithin the time period is included. Other (Other) Client Collect / Unknown 08/31/2023 12:00 PM PER DIEM PHYSICAL THERAPIST 08/31/2023 8:47 PM PER DIEM PHYSICAL THERAPIST Andreea Zee MD LAB BILL O [facility] [address] [place] [address], * PATH FNA CYTOLOGY ASP CYTOLOGY (08/31/2023 12:00 PM PER DIEM PHYSICAL THERAPIST) Case Report Medical Cytology Report ? Case: [id number] ? Authorizing Provider: ??Andreea Zee ?Collected: ? 08/31/2023 1200 ? MD Essie ? Ordering Location: ? [facility] ?Received: ?09/01/202328 ? Pathologist: ? Glenda Vogel MD ? Specimen: ?Peritoneal Washing ? 09/02/2023 11:37 AM [facility] Power [facility] Final Diagnosis A) This peritoneal washing specimen was appropriately obtained from this patient and submitted to the laboratory, where it was held pending analysis of the corresponding surgical specimen [id number]. The final surgical pathology report in this case was benign, and therefore, according to laboratory protocol, the peritoneal washing specimen will not be processed and evaluated. The specimen will be held in the cytology laboratory for one week. If processing of the specimen is desired, please contact the laboratory at [phone]. DLN:em 09/02/2023 09/02/2023 11:37 AM [facility] Clinical Information Pelvic mass. Operative findings: The uterus has multiple fibroids with 2 subserosal fibroids at the fundus and a 3 cm anterior pedunculated fibroid that was tilted toward the right side of the pelvis, which correlates to the suspected ovarian mass noted on CT and ultrasound. Right ovary was adherent to the right pelvic sidewall but normal in appearance. Right fallopian tube was normal. Left fallopian tube and ovary were surgically absent. 09/02/2023 11:37 AM [facility] Power [facility] Gross Description A) SOURCE: Peritoneal washing The specimen consists of 60 cc of red cloudy fluid. 09/02/2023 11:37 AM [facility] [employer] [facility] Additional Information Cytology is screened at [facility] [employer] [facility], Central Laboratory - [address] [place] [address] and [facility] Laboratory - [address], [place] [address] and [facility] - [address], [place] [address] Interpreted at [facility], Central Laboratory - [address], [place] [address] 09/02/2023 11:37 AM PER DIEM PHYSICAL THERAPIST [facility] ENTRAL LABORATORY Aspirate (Peritoneal Washing) 08/31/2023 12:00 PM PER DIEM PHYSICAL THERAPIST 09/01/2023 9:28 AM PER DIEM PHYSICAL THERAPIST Andreea Zee MD PATHOLOGY/ CYTOLOGY [facility] [address] [place] [address], * PATH TISSUE EXAM (08/31/2023 9:38 AM PER DIEM PHYSICAL THERAPIST) Case Report Pathology Report ?Case: [id number] ? Authorizing Provider: ??Andreea Zee ?Collected: ? 08/31/2023 0938 ? MD Essie ? Ordering Location: ? [facility] ?Received: ?08/31/20238 ? Pathologist: ? Greer Ritchie MD ? Specimens: ?? A) - Right Fallopian Tube ? B) - Fibroid ? 09/02/2023 10:17 AM [facility]OR[facility]-C ENTRAL LABORATORY Final Diagnosis A) RIGHT FALLOPIAN TUBE, RIGHT SALPINGECTOMY: 1. Right fimbriated fallopian tube with no significant histologic abnormality 2. Negative for malignancy B) UTERINE FIBROID, MYOMECTOMY: 1. Leiomyoma 2. Negative for atypia and malignancy 09/02/2023 10:17 AM [facility] Clinical Information Pelvic mass. Operative findings: The uterus has multiple fibroids with 2 subserosal fibroids at the fundus and a 3 cm anterior pedunculated fibroid that was tilted toward the right side of the pelvis, which correlates to the suspected ovarian mass noted on CT and ultrasound. Right ovary was adherent to the right pelvic sidewall but normal in appearance. Right fallopian tube was normal. Left fallopian tube and ovary were surgically absent. 09/02/2023 10:17 AM [facility] LABOR[facility] Gross Description A) Received in formalin, labeled with the patient's name and right fallopian tube, is a 4.2 cm long, 0.6 cm diameter segment of fallopian tube. ??The serosal surface is smooth. ??A fimbriated end is present. The lumen displays stellate neely mucosa, no lesions are identified. Practice Management Consultant sections to include the entire fimbriated end are submitted in 2 cassette(s). B) Received in formalin, labeled with the patient's name and uterine fibroid, is a 34 g, 4.5 x 3.6 x 3.1 cm neely-white disrupted whorled-like nodule. ??The cut surface reveals no hemorrhage or necrosis grossly identified. ??Practice Management Consultant sections are submitted in 3 cassettes. [facility] 09/01/2023 ?? 09/02/2023 10:17 AM [facility] LABORAT[facility]-C ENTRAL LABORATORY Microscopic Description The final diagnosis is based on microscopic examination of appropriate sections of all specimens. 09/02/2023 10:17 AM [facility]-C ENTRAL LABORATORY Additional Information Interpreted at [facility], Central Laboratory - [address] [place] [address] 09/02/2023 10:17 AM [facility] Other (Right Fallopian Tube) 08/31/2023 9:38 AM PER DIEM PHYSICAL THERAPIST 08/31/2023 9:08 PM PER DIEM PHYSICAL THERAPIST Specimen (specimen) (Fibroid) 08/31/2023 9:38 AM PER DIEM PHYSICAL THERAPIST 08/31/2023 9:08 PM PER DIEM PHYSICAL THERAPIST Andreea Zee MD PATHOLOGY/ CYTOLOGY Performing Organization Address City/State/[facility] Co de Phone Number [facility] [address] [place] [address], from Last 3 Months Care Teams Metal Technician Relationship Specialty Start Date End Date Pcp, No . PCP - General 01/06/23
--- OUTSIDE RECORDS SUMMARY | 2023-09-15 10:02 | XMS_ITS | Encounter Summary ---
Author Name Unknown Organization [place] Address [address] [place] [address] Care Team Providers Care Marketing Automation Specialist Name Role Phone Jerica Oleary PA-C Unavailable [phone] Jerica Oleary PA-C Primary Care Provider [phone] Encounter Details Date Type Department Care Team [...] Sex Assigned at Female 06/01/2023 10:21 AM NET WPF DEVELOPER Gender Identity Female 06/01/2023 10:21 AM NET WPF DEVELOPER Sexual Orientation Straight 06/01/2023 10 :21 AM NET WPF DEVELOPER documented as of this encounter Plan of Treatment Not on file documented as of this encounter Visit Diagnoses Not on filedocumented in this encounter Care Teams Marketing Automation Specialist Relationship Specialty Start Date End Date Jerica Oleary PA-C [place] [address] [place] [address] PCP - General 05/10/23 eJrica Oleary PA-C [place] [id number] [place] [address] 05/10/23 documented as of this encounter
== END 2023-09-15 09:44 | disposition home or self-care (01) ==
PROVIDERS: PCP Physician Assistant Medical; Visit Provider Obstetrics & Gynecology
DX: Z13.220 Encounter for screening for lipoid disorders (principal); Z13.1 Encounter for screening for diabetes mellitus
CPT/HCPCS: 80061; 82947

== ENCOUNTER 2023-12-16 15:36 | Outpatient (CLI) | payer BC, SELFPAY ==
--- OUTSIDE RECORDS SUMMARY | 2024-01-04 12:38 | XMS_ITS | Encounter Summary ---
Author Organization [place] Address [facility] [place] [address] Care Team Providers Care Housekeeper Supervisor Name Role Phone Joleen Baeza MD Primary Care Provider Jerica Oleary PA-C Unavailable [phone] Jerica Oleary PA-C Primary Care Provider [phone] Reason for Visit * Reason Onset Date Comments Refill Request 11/22/2012 Flonase Encounter Details Date Type Department Care Team (Late st Contact Info) Description 11/22/2012 MyC Refill [place] [id number] [facility], [address] [place] [address] [place] [address] [place], [place] [id number] Refill Request (Flonase) Social History Tobacco Use Types Packs/Day Years Used Date Smoking Tobacco: Never Smokeless Tobacco: Never Alcohol Use Standard Drinks/Week Comments No 0 (1 standard drink = 0.6 oz pur e alcohol) Sex and Gender Information Value Date Recorded Sex Assigned at Female 06/01/2023 10:21 AM COMBINATION MACHINE TOOL SETTER Gender Identity Female 06/01/2023 10:21 AM COMBINATION MACHINE TOOL SETTER Sexual Orientation Straight 06/01/2023 10 :21 AM COMBINATION MACHINE TOOL SETTER documented as of this encounter Miscellaneous Notes * Telephone Encounter - Nick Delisa - 11/23/2012 7:39 AM CDT ALLERGY MEDICATION [...] Delisa Romero RN * Telephone Encounter - Nick Delisa - 11/23/2012 7:39 AM [facility] Original authorizing provider: MD Dean Chiangth Carlito Whitney would like a refill of the following medications: fluticasone (FLONASE) 50 MCG/ACT nasal spray [Joleen Baeza MD] Preferred pharmacy: [id number] - [place] - [address] Comment: It makes it easier to breath at night with my CPAP - I only need it once every few months, but I'm about to run out. :) documented in this encounter Plan of Treatment Not on file documented as of this encounter Visit Diagnoses Diagnosis Chronic maxillary sinusitis- Primary documented in this encounter Care Teams Housekeeper Supervisor Relationship Specialty Start Date End Date Joleen Baeza MD PCP - General Family Practice 10/13/11 05/09/23 Jerica Oleary PA-C [facility] [place] [address] [place] [address] PCP - General 05/10/23 Jerica Oleary PA-C [address] [place], [place] [address] 05/10/23 documented as of this encounter
--- OUTSIDE RECORDS SUMMARY | 2024-01-04 12:38 | XMS_ITS | Clinical Summary ---
Author Organization [facility] Address [address] [place] [address] Care Team Providers Care Grain I Farmworker Name Role Phone Unavailable Primary Care Provider Unavailabl e Source Comments Patient records contain information from all sites at [facility]. For routine questions regarding patient records, call [phone] during business hours, M-F 8:00 AM - 5:00 PM Central Time. Record requests for emergency care only can be directed to [phone] at any time.[facility] Allergies Active Allergy Reactions Criticality Noted Date Comments Melatonin Other (see comments) 03/24/2018 Interferes with estrogen absorbtion Metronidazole Other (see comments) 02/04/2017 Nerve damage Sulfa (Sulfonamide Antibiotics) Hives (Reselect Reaction) 01/28/2017 Adhesive Other (see comments) 05/15/2019 Some tapes and band aids sheer skin. Best band aid brand skin flex, also uses cover-roll tape without issue. Medications Medication Sig Dispensed Refills Start Date End Date Status colestipol (COLESTID) 1 gram tablet Take 4 g by mouth at bedtime as needed. 03/24/2018 Active multivitamin/iron/fol ic acid (CENTRUM COMPLETE ORAL) Take by mouth daily. 01/28/2017 Active cholecalciferol (VITAMIN D3) 125 mcg (5,000 Unit) tablet Take 1 tablet by mouth daily. 01/28/2017 Active levothyroxine (SYNTHROID, LEVOTHROID) 75 mcg tablet Take 75 mcg by mouth every morning before breakfast. Active gemfibrozil (LOPID) 600 mg tablet Take 600 mg by mouth 2 (two) times a day before breakfast and dinner. 5 04/28/2019 Active miscellaneous medical supply [facility] CPAP machine for home use at pressure: 10, full face mask with cushion x 1, 07/28/2018 Active SPRINTEC, 28, 0.25-35 mg-mcg per tablet TAKE 1 TABLET BY MOUTH EVERY DAY *TAKES CONTINUOUSLY* 2 03/19/2019 Active hydroCHLOROthiazide (MICROZIDE) 12.5 mg capsule TAKE 1 CAPSUKE BY MOUTH DAILY 12/24/2021 Active Encounters Date Type Department Care Team Description 11/02/2023 4:00 PM CDT Office Visit Department of Dermatology in [address] [phone] Kathleen Bearden M.D. Nevi Multiple (Primary Dx); Keratosis Seborrheic Discharge Disposition: Home or Self Care from Last 3 Months Social History Tobacco Use Types Packs/Day Years Used Date Smoking Tobacco: Never Smokeless Tobacco: Never Alcohol Use Standard Drinks/Week Comments Never 0 (1 standard drink = 0.6 oz pur e alcohol) [facility] Utilities Answer Date Recorded In the past 12 months has [employer], gas, oil, or water [employer] threatened to shut off services in your home? No 10/28/2023 Humiliation, Afraid, Rape, and Kick questionnair e Answer Date Recorded Within the last year, have y ou been afraid of your partner or ex-partner? No 07/31/2022 Within the last year, have y ou been humiliated or emotionally abused in other ways by your partner or ex-partner? No Within the last year, have y ou been kicked, hit, slapped, or otherwise physically hurt by your partner or ex-partner? No 07/31/2022 Within the last year, have y ou been raped or forced to have any kind of sexual activity by your partner or ex-partner? No 07/31/2022 Social Connection and Isolat ion Panel [NHANES] Answer Date Recorded In a typical week, how many times do you talk on the phone with family, friends, or neighbors? More than three times a week 07/31/2022 How often do you get togethe r with friends or relatives? Three times a week 07/31/2022 How often do you attend chur ch or amish services? More than 4 times per year 07/31/2022 Do you belong to any clubs o r organizations such as hoahaoism groups, unions, fraternal or athletic groups, or school groups? Yes 07/31/2022 How often do you attend meet ings of the clubs or organizations you belong to? More than 4 times per year 07/31/2022 Are you , , di vorced, , never , or living with a partner? Never 07/31/2022 AUDIT-C Answer Date Recorded Q1: How often do you have a drink containing alc ohol? Never 07/31/2022 Average Number of Drinks Not on file 023 Frequency of Binge Drinking Not on file 12/2022 Overall Financial Resource Strain (CARDIA) Answe r Date Recorded How hard is it for you to pa y for the very basics like food, housing, medical care, and heating? Not hard at all 07/31/2022 [facility] - Occupational Stress Questionnaire Answer Date Recorded Do you feel stress - tense, restless, nervous, or anxious, or unable to sleep at night because your mind is troubled all the time - these days? Rather much 07/31/2022 Exercise Vital Sign Answer Date Recorde d On average, how many days pe r week do you engage in moderate to strenuous exercise (like a brisk walk)? 5 days 10/28/2023 On average, how many minutes do you engage in exercise at this level? 60 min 10/28/2023 Hunger Vital Sign Answer Date Recorded Within the past 12 months, y ou worried that your food would run out before you got the money to buy more. Never true 10/28/19 24 Within the past 12 months, t he food you bought just didn't last and you didn't have money to get more. Never true 10/28/2023 PRAPARE - Transportation Answer Date Re corded In the past 12 months, has l ack of transportation kept you from medical appointments or from getting medications? No 10/2023 In the past 12 months, has l ack of transportation kept you from meetings, work, or from getting things needed for daily living? No 10/28/2023 Nutrition Answer Date Recorded Nutrition: EVOO Fat Source Yes 10/27 On average, how many serving s of fruits and vegetables do you eat per day (serving size is equal to 1 cup or approximately the size of a tennis ball)? 5 or more 10/28/2023 Dental Answer Date Recorded Dental: Regular Dentist Yes 07/04/20 Employment Answer Date Recorded Employment status Employed and actively working without restrictions 10/28/2023 Housing Stability Answer Date Recorded What is your living situation today? I have a [facility] place to live 10/28/2023 Education Answer Date Recorded What is the highest level of school you have completed or the highest degree you have received? Master's degree (e.g., MA, MS, Kevan, MEd, MOTHER TESTER, LENI) 02/09/2020 Sex and Gender Information Value Date Recorded Sex Assigned at Female 10/12/2018 9:13 PM CDT Gender Identity Female 10/12/2018 9:13 PM CDT Sexual Orientation Straight 10/12/2018 9: 13 PM CDT Last Filed Vital Signs Vital Sign Reading Time Taken Comments Blood Pressure 138/95 01/28/2017 1:16 PM CDT Pulse 79 01/28/2017 1:16 PM CDT Temperature - - Respiratory Rate - - Oxygen Saturation - - Inhaled Oxygen Concentration - - Weight 120 kg (264 lb 3.5 oz) 01/28/2017 1:16 PM CDT Height 168 cm (5' 6.14) 01/28/2017 1:16 PM CDT Body Mass Index 42.46 01/28/2017 1:16 PM CDT Plan of Treatment Health Maintenance Due Date Last Done Comments CT Colonography 1978 Cologuard 1978 Colonoscopy 1978 Colorectal Cancer Screening 1978 FIT 1978 HIV Screening 1978 Hepatitis C Screening 1978 Lipid (Cholesterol) Screening 1978 Mammogram 1978 Thyroid Stimulating Hormone (TSH) test for thyroid function 1978 Hepatitis B Vaccines (1 of 3 - 19+ 3-dose series) 1997 Depression Screening (Annual PHQ-2) 07/26/2023 Cervical Cancer Screening 09/10/20242021, 08/05/2015 (Performed elsewhere) Fasting Glucose for Diabetes Screening 05/10/2026 05/10/2023 DTaP,Tdap,and Td Vaccines (5 - Td or Tdap) 07/01/2028 07/01/2018, 11/09/2013, 03/02/2013, Additional history exists COVID-19 Vaccine Completed 06/16/2023, 09/2021, 05/16/2021, Additional history exists Influenza Vaccine Completed 06/16/2023, , 03/28/2022, Additional history exists HPV Vaccines Aged Out No longer eligi ble based on patient's age to complete this topic Pneumococcal vaccine (0-64 years) Aged Out No longer eligible based on patient's age to complete this topic Medical Devices Implanted Type Area Waiter/Waitress Cabin Class Device Identifier Shelf Expiration Date Model / Serial / Lot Imaging Marker Imaging Marker Left: Breast Procedures Procedure Name Priority Date/Time Associated Diagnosis Comments EXTI BASIC METABOLIC PANEL, FASTING, S Routine 05/10/2023 4:17 PM CDT from Last 3 Months or Most Recently Relevant to Health Maintenance
--- OUTSIDE RECORDS SUMMARY | 2024-01-04 12:38 | XMS_ITS | Encounter Summary ---
Author Organization [facility] Address [address] [place] [address] Care Team Providers Care University Controller Name Role Phone Unavailable Primary Care Provider Unavailabl e Reason for Visit * Reason Comments Skin Check * Appointment Request (Routine) - Closed Specialty Diagnoses / Procedures Referred By Shefali juarez Referred To Contact Family Medicine Referral ID Status Reason Start Date Expiration Date Visits Re quested Visits Authorized [id number] Closed 07/23/2023 07/22/2024 1 1 Encounter Details Date Type Department Care Team (Late st Contact Info) Description 11/02/2023 4:00 PM CDT Office Visit Department of Dermatology in [address] [phone] Kathleen Bearden M.D. [address] [place] [address] Nevi Multiple (Primary Dx); Keratosis Seborrheic Discharge Disposition: Home or Self Care Social History Tobacco Use Types Packs/Day Years Used Date Smoking Tobacco: Never Smokeless Tobacco: Never Alcohol Use Standard Drinks/Week Comments Never 0 (1 standard drink = 0.6 oz pur e alcohol) [facility] Utilities Answer Date Recorded In the past 12 months has th e electric, gas, oil, or water company threatened to shut off services in your [...] 07/31/2022 How often do you attend chur or restorationist services? More than 4 times per year 07/31/2022 Do you belong to any clubs o r organizations such as shinto groups, unions, fraternal or athletic groups, or [...] and heating? Not hard at all 07/31/2022 [facility] [place] of Occupat ional Health - Occupational Stress Questionnaire Answer Date Recorded [...] your living situation today? I have a [facility] place to live 10/28/2023 Education Answer Date Recorded What is the highest level of school you have completed or the highest degree you have received? Master's degree (e.g., MA, MS, Kevan, MEd, STEM THRESHING MACHINE OPERATOR, LENI) 02/09/2020 Sex and Gender Information Value Date Recorded Sex Assigned at Female 10/12/2018 9:13 PM CDT Gender Identity Female 10/12/2018 9:13 PM CDT Sexual Orientation Straight 10/12/2018 9: 13 PM CDT documented as of this encounter Progress Notes * Kathleen Bearden M.D. - 11/02/2023 4:00 PM CDT SUBJECTIVE CHIEF COMPLAINT / REASON FOR VISIT Full skin cancer screening HISTORY OF PRESENT ILLNESS Keila Whitney is a pleasant 43 y.o. female who presents for a full skin cancer screening. The patient was last seen by me in Dermatology clinic on 08/04/22. She denies a personal history of skin cancer or family history for melanoma. She uses sunscreen. She denies any new or changing lesions today. MEDICAL HISTORY Negative for skin cancer FAMILY HISTORY Negative for melanoma OBJECTIVE PHYSICAL EXAMINATION General: Awake, alert, in no acute distress, and with appropriate affect. Eyes: No scleral injection or icterus. No eyelid abnormalities. Lymph: No lower extremity edema. Skin: I have examined the scalp, face, neck, chest, abdomen, back, bilateral upper extremities, andbilateral lower extremities. My scribe (Essie) served as a tree planter for the entirety of the exam. Examination of the face, trunk and extremities reveals multiple benign-appearing nevi, lentigines and seborrheic keratoses. Examination of the right upper buttock reveals a 2.5 x 2 mm brown nevus with focally jagged borders, which looks benign on clinical exam and dermoscopy. Examination today reveals no suspicious lesions for skin cancer. ASSESSMENT / PLAN #1 Face, trunk and extremities: Multiple nevi and lentigines The ABCDE criteria for melanoma was reviewed with the patient. None of the patient's nevi reach theclinical threshold for biopsy. I recommend continued sun protection, self-skin examinations, and observation. Should any of the patient's nevi change in size, color, texture, or shape or develop symptoms such as itching or bleeding, I recommend an immediate return visit for reassessment. Particularly, we will continue to clinically monitor the lesion(s) involving the right upper buttock. Photographs taken previously. Follow up in 12 months for a full skin cancer screening. #2 Face, trunk and extremities: Seborrheic keratosis The benign nature of the skin lesion(s) was discussed with the patient. No treatment is required. Irecommend continued observation. Should this lesion change in size, color, texture, or shape or develop symptoms such as itching or bleeding, I recommend an immediate return visit for reassessment. PATIENT EDUCATION: Ready to learn. No apparent learning barriers were identified. Learning preferences include listening. Explained diagnosis and treatment plan; patient/guardian of patient expressed understanding of the content. By signing my name below, I, Essie Moore, attest that this documentation has been prepared underthe direction and in the presence of Kathleen Bearden M.D. Electronically Signed: samuel Luke. 11/02/2023. 4:10 PM CDT. I, Kathleen Bearden M.D., personally performed the services described in this documentation. All medical record entries made by the scribe were at my direction and in my presence. I have reviewed the chart and discharge instructions (if applicable) and agree that the record reflects my personal performance and is accurate and complete. Kathleen Bearden M.D. Scribed for Kathleen Bearden M.D. by Essie Moore, on 11/02/2023, 4:25 PM CDT. documented in this encounter Plan of Treatment Not on file documented as of this encounter Visit Diagnoses Diagnosis Nevi Multiple- Primary Keratosis Seborrheic documented in this encounter
--- OUTSIDE RECORDS SUMMARY | 2024-01-04 12:38 | XMS_ITS | Clinical Summary ---
Author Organization [facility] Address [address] [place] [id number] Care Team Providers Care Hat Marker Name Role Phone Jerica Oleary PA-C Unavailable [phone] Jerica Oleary PA-C Primary Care Provider [phone] Allergies Active Allergy Reactions Criticality Noted Date Comments Sulfa Antibiotics 06/06/2009 Hives Medications Medication Sig Dispensed Refills Start Date End Date Status levothyroxine (SYNTHROID) 50 MCG tabletIndications: Hypothyroidism Take 1 tablet by mouth every morning. 90 tablet 3 10/13/2011 Active VITAMIN D, CHOLECALCIFEROL, PO Take 2,000 Units by mouth daily. Active ibuprofen (ADVIL,MOTRIN) 600 MG tabletIndications: Endometriosis Take 1 tablet by mouth every 6 hours as needed for other (For mild pain or temperature greater than 102F). 30 tablet 0 10/28/2012 Active fluticasone (FLONASE) 50 MCG/ACT nasal sprayIndications:C hronic maxillary sinusitis [place] 2 sprays into both nostrils daily. 1 [...] Sex Assigned at Female 06/01/2023 10:21 AM LUBRICATION WORKER Gender Identity Female 06/01/2023 10:21 AM LUBRICATION WORKER Sexual Orientation Straight 06/01/2023 10 :21 AM LUBRICATION WORKER Last Filed Vital Signs Vital Sign Reading [...] COLONOGRAPHY 1978 FIT 1978 FLEX SIG 1978 sDNA (Cologuard) 1978 COLONOSCOPY 01/18/1988 COLORECTAL CANCER SCREENING 01/18/1988 HIV SCREENING 1993 HEPATITIS C SCREENING 01/18/1996 HEPATITIS B IMMUNIZATION (1 of 3 - 19+ 3-dose series) 1997 MAMMO SCREENING 02/12/2007 02/12/2005 YEARLY PREVENTIVE VISIT 09/12/2011 09/12/19 11, 08/28/2009, 10/21/2005 PAP 09/12/2013 09/12/2010, 08/28/2009 TSH W/FREE T4 REFLEX 11/10/2013 11/10/2012, 09/11/2011, 08/26/2010, Additional history exists LIPID 2018 08/28/2010, 06/19/2009 COVID-19 Vaccine ( season) 2023 03/28/2022, 05/16/2021, 10/18/2020, Additional history exists PHQ-2 (once per calendar year) 2023 INFLUENZA VACCINE (Season Ended) 2024 03/27/2022, 03/16/2021, 04/27/2013, Additional history exists GLUCOSE 05/10/2026 05/10/2023, 10/24, 08/28/2010, Additional history [...] Procedure Name Priority Date/Time Associated Diagnosis Comments BASIC METABOLIC PANEL STAT 05/10/2023 4:17 PM CDT TSH WITH FREE T4 REFLEX Routine 11/10/2012 3:44 PM CDT Hypothyroidism PAP IMAGED THIN LAYER SCREEN Routine 09/12/2010 2:59 PM LUBRICATION WORKER Routine general medical examination at a [facility] care facility LIPID REFLEX TO DIRECT LDL PANEL Routine 08/28/2010 8:19 AM LUBRICATION WORKER Hypothyroidism Obesity Weight gain Elevated C-reactive protein (CRP) CARDIOVASCULAR SCREENING; LDL GOAL LESS THAN 160 C MAMMOGRAM, BOTH BREASTS (DIAG) Routine 02/12/2005 10:07 AM CDT from Last 3 Months or Most Recently Relevant to Health Maintenance Results * (ABNORMAL) Basic metabolic panel (05/10/2023 4:17 [...] - 5.3 mmol/L 05/10/2023 4:53 PM CDT [facility] Chloride 99 98 - 107 mmol/L 05/10/2023 4:53 PM CDT [facility] Carbon Dioxide (CO2) 24 22 - 29 mmol/L 05/10/2023 4:53 PM CDT [facility] Anion Gap 13 7 - 15 mmol/L 05/10/2023 4:53 PM CDT [facility] Urea Nitrogen 9.4 6.0 - 20.0 mg/dL 05/10/2023 4:53 PM CDT [facility] Creatinine 0.68 0.51 - 0.95 mg/dL 05/10/2023 4:53 PM CDT [facility] GFR Estimate >90 >60 mL/min/1. 73m2 05/10/2023 4:53 PM CDT [facility] Calcium 9.4 8.6 - 10.0 mg/dL 05/10/2023 4:53 PM CDT [facility] Glucose 114(H) 70 - 99 mg/dL 05/10/2023 4:53 PM CDT LABORATORY Blood STRUCTURE OF RIGHT UPPER LIMB / Unknown Venipuncture / Unknown 05/10/2023 4:17 PM CDT 05/10/2023 4:28 PM CDT Clark Morgan MD LAB - BLOOD ORDERABL ES LABORATORY [facility] [address] [facility] (1st floor, no room number) [place] [address], [facility] [phone] * TSH with free T4 reflex (11/10/2012 3:44 PM CDT) TSH 2.54 0.4 - 5.0 mU/L [facility] Blood specimen (specimen) 11/10/2012 3:44 PM CDT 11/10/2012 3:46 PM CDT Joleen Baeza MD LAB - BLOOD ORD ERABLES [facility] [address] [place] [address] * PAP imaged thin layer screen (09/12/2010 2:59 PM LUBRICATION WORKER) PAP NIL SURESH [place] Report Patient Name: KEILA CUI MR#: [id number] Specimen #: [id number] Collected: 09/12/2010 Received: 09/16/2010 Reported: 09/17/2010 11:37 Ordering Phy(s): KEILA HENRIQUEZ SPECIMEN/STAIN PROCESS: Pap imaged thin layer prep screening (Surepath, FocalPoint with guided screening) ? Pap-Cyto x 1, Reflex HPV x 1 SOURCE: Cervical, endocervical Pap imaged thin layer prep screening (Surepath, FocalPoint with guided screening) SPECIMEN ADEQUACY: Satisfactory for evaluation. -Transformation zone component present. CYTOLOGIC INTERPRETATION: Negative for Intraepithelial Lesion or Malignancy Electronically signed out by: BORIS Antonio ( ASCP) Processed and screened at [facility], [facility] CLINICAL HISTORY: LMP: 08/17/2010 Irregular Bleeding, Previous normal pap Date of Last Pap: 08/28/2009, Papanicolaou Test Limitations: ??Cervical cytology is a screening test with limited sensitivity; regular screening is critical for cancer prevention; Pap tests are primarily effective for the diagnosis/preventi on of squamous cell carcinoma, not adenocarcinomas or other cancers. TESTING LAB LOCATION: [address] ??[id number] COLLECTION SITE: Client: ??[facility] Location: [facility] (R) COPATH Cytologic material (specimen) 09/12/2010 2:59 PM LUBRICATION WORKER 09/16/2010 10:24 AM LUBRICATION WORKER Keila [facility] ICAL SPECIMEN COPATH * (ABNORMAL) Lipid panel reflex to direct LDL (08/28/2010 8:19 AM LUBRICATION WORKER) Cholesterol 195 0 - 200 mg/dL [facility] Comment: LDL Cholesterol is the primary guide to therapy. The NCEP recommends further evaluation of: patients with cholesterol <200 mg/dL if additional risk factors are present, cholesterol >240 mg/dL, triglycerides >150 mg/dL, or HDL <40 mg/dL. Triglycerides 144 0 - 150 mg/dL [facility] HDL Cholesterol 45(L) 50 - 110 mg/dL [facility] LDL Cholesterol Calculated 122 0 - 129 mg/dL [facility] Comment: LDL Cholesterol is the primary guide to therapy: LDL-cholesterol goal in high risk patients is <100 mg/dL and in very high risk patients is <70 mg/dL. VLDL-Cholesterol 29 0 - 30 mg/dL [facility] Cholesterol/HDL Ratio 4.4 0.0 - 5.0 [facility] Blood specimen (specimen) 08/28/2010 8:19 AM LUBRICATION WORKER 08/28/2010 8:21 AM LUBRICATION WORKER Keila Henriquez PA-C LAB - BLOOD ORDER DAYSI [facility] * MAMMOGRAM, BOTH BREASTS (DIAG) (02/12/2005 10:07 AM CDT) Anatomical Region Laterality Modality Other 02/12/2005 10:0 7 AM CDT Impressions 02/15/2005 9:10 PM CDT BILATERAL DIAGNOSTIC MAMMOGRAM, AND LEFT BREAST ULTRASOUND ?? History: ??The patient is a 25-year-old female who can palpate some nodularity in the inferior left breast. ??Specifically, there is a stand-out nodule at 6 o'clock, at about 6 or 7 cm below the nipple. ?? Breast Symptoms: ??Lump, left. ?? Previous Mammography: ??None. Breast Parenchyma: ??Heterogeneously dense. ? Findings: ?? Mammogram: ??I scanned the entire lower half of the left breast, showing only normal lobular fat. ??No specific abnormality. ?? Fortuitously, upon scanning the medial aspect of the left breast at the 9 o'clock position we noted a hypoechoic area of breast tissue. ?? This has a nodular appearance and is wider than tall and has sharp margins. ??It measures approximately 18.7 x 8.4 x 24.4 mm. ??This is likely to represent a variant of normal breast tissue or possibly fibrosis or fibroadenoma. ??To further assess this we obtained a diagnostic left mammogram. Diagnostic left mammogram: ??There is a large nodular density in the medial aspect of the left breast. ??This measures about 24 mm in diameter and would correlate nicely with the ultrasound abnormality. ?? No other mammographic abnormality. ??The patient expressed some concern about providing information to her parents, and therefore we obtained the right breast also to rule out any unexpected pathology as well. ?? Diagnostic right mammogram: ??Negative. ??No specific abnormality. I have reviewed all of these findings with Keila, and we will obtain an ultrasound-guided core needle biopsy of the left breast 9 o'clock nodular density. IMAGING IMPRESSION: ??ACR BIRADS CATEGORY 4A, SUSPICIOUS ABNORMALITY. ?? LOW SUSPICION OF MALIGNANCY. Trip Hale MD SPECIAL IMAGING STUD IES from Last 3 Months or Most Recently Relevant to Health Maintenance Care Teams Hat Marker Relationship Specialty Start Date End Date Jerica Oleary PA-C [address] [place] [address] PCP - General 05/10/23 Jerica Oleary PA-C [place] [id number] [place] [address] 05/10/23
--- OUTSIDE RECORDS SUMMARY | 2024-01-04 12:38 | XMS_ITS | Clinical Summary ---
Author Organization [facility] Address [place], [place] [address] Care Team Providers Care Roll Grinder Name Role Phone Pcp, No Primary Care [...] daily before meals. 0 05/04/2019 Active multivitamins-calciu p-jllx-lrihspoa (Multiple Vitamin, Womens) tab tablet Take 1 Tablet by mouth once daily. 0 08/07/2021 Active levothyroxine (SYNTHROID) 100 mcg tablet Take one daily 09/10/2021 Active colestipoL (COLESTID) 1 gram tabletIndications:Di arrhea, unspecified type,Bile salt-induced diarrhea Take 4 Tablets (4 g) by mouth once daily. 360 Tablet 3 02/11/2023 Active CPAPIndications:Obst ructive sleep apnea of adult CPAP machine for home use at pressure 10, choice of mask, lifetime length of need, daily use. 1 Each 11 09/20/2023 Active Active Problems Problem Noted Date Diagnosed Date NADYA (obstructive sleep apnea) 07/07/2017 Immunizations Name Administration Dates Next Due Influenza [...] Comments Blood Pressure 118/66 09/04/2019 3:43 PM CITRUS PICKER Pulse 77 09/04/2019 3:43 PM [facility] Temperature 36.9 ??C (98.4 ??F) 02/04/2017 2:15 PM CD T Respiratory Rate 18 09/04/2019 3:43 PM [facility] PICKER Oxygen Saturation 97% 09/04/2019 3:43 PM [facility] PICK[facility] RA rest Inhaled Oxygen Concentration - - Weight 119.3 kg (263 lb) 09/04/2019 3:43 PM CITRUS PICKER Height 167.6 cm (5' 6) 09/04/2019 3:43 PM [facility] PICKER Body Mass Index 42.45 09/04/2019 3:43 PM CITRUS PICKER Plan of Treatment Health Maintenance Due Date Last Done Comments Depression screening for age 12+ 1990 HIV for age 15-65 1993 Hepatitis C screening for age 18-79 01/18/1996 BMI (ht and wt on same day) for age 18+ 09/04/2020 09/04/2019, 07/07/2017, 09/02/2016, Additional history exists Colonoscopy through age 75 2023 Lipids for age 45-75 2023 Mammogram for age 45-75 2023 Influenza for age 9-49 03/26/2024 1, 04/27/2013, 04/28/2012, Additional history exists Pap test for age 21-65 09/10/2024 2, 09/10/2020, 08/19/2015, Additional history exists Tetanus booster 07/01/2028 07/01/2018, 10/24, 03/02/2013, Additional history exists Tdap Completed 07/01/2018, 02/2013, 09/03/2008 COVID-19 vaccine series Completed 06/16/20, 03/28/2022, 05/16/2021, Additional history exists Pneumococcal series for age 6-64 Aged Out No longer eligible based on patient's age to complete this topic Procedures Procedure Name Priority Date/Time Associated Diagnosis Comments SENIOR INTEGRATION DEVELOPER THIN PREP PAP SCREEN IMAGED Routine 09/10/2021 10:00 AM CITRUS PICKER from Last 3 Months or Most Recently Relevant to Health Maintenance Results * SENIOR INTEGRATION DEVELOPER THIN PREP PAP SCREEN IMAGED (09/10/2021 10:00 AM CITRUS PICKER) Case Report Gynecologic Cytology Report ? Case: [id number] ? Authorizing Provider: ??Andreea Zee ?Collected: ? 09/10/2021 1000 ? MD Essie ? Ordering Location: ? [facility] ?Received: ?09/11/2021 0929 ? First Screen: ?BacRadhames rodriguez ? Specimen: ?SENIOR INTEGRATION DEVELOPER ThinPrep Vial Screening, Cervical/Vaginal ? 09/19/2021 10:14 AM [facility] INTERPRETATION/ RESULT NEGATIVE FOR INTRAEPITHELIAL LESION OR MALIGNANCY (NIL) (none) 09/19/2021 10:14 AM [facility] IMEN ADEQUACY Satisfactory for evaluation Endocervical component present 09/19/2021 10:14 AM [facility] HPV REQUEST HPV and PAP 09/19/2021 10:14 AM [facility] Last Pap Date 08/19/2015 09/19/2021 10:14 AM [facility] Last Pap Result NIL 10:14 AM [facility] Comment:HPV neg Menstrual Status 09/19/2021 10:14 AM [facility] Comment: control Additional Information 09/19/2021 10:14 AM [facility] Comment: Interpreted at [facility] - [address], [place] [address] Automated Review Successful 09/19/2021 10:14 AM [facility] Comment:Specimen processed s uccessfully by automated tier truck driver device, ThinPrep Imaging System, [employer] ANCILLARY TESTING SENIOR INTEGRATION DEVELOPER HPV Ordered, Please see separate report 09/19/2021 10:14 AM [facility] P[facility] Note The pap test is a screening technique, not a diagnostic procedure. It is used primarily to screen for squamous cancers and precursor lesions. Published studies have shown that it is subject to both false negative and false positive results. The pap test should not be used as the sole means to diagnose or exclude pre-malignant and malignant lesions. 09/19/2021 10:14 AM [facility] Other (Cervical/Vagina l) 09/10/2021 10:00 AM [facility] PICKER 09/11/2021 9:29 AM [facility] Andreea Zee MD PATHOLOGY/ CYTOLOGY [facility] [address] [place] [address], from Last 3 Months or Most Recently Relevant to Health Maintenance Care Teams Roll Grinder Relationship Specialty Start Date End Date Pcp, No . PCP - General 01/06/23
--- OUTSIDE RECORDS SUMMARY | 2024-01-04 12:38 | XMS_ITS | Referral Summary ---
Author Organization [facility] Address [address] [place] [address] Care Team Providers Care Baccarat Manager Name Role Phone Unavailable Primary Care Provider Unavailabl e Source Comments Patient records contain information from all sites at [facility]. For routine questions regarding patient records, call [phone] during business hours, M-F 8:00 AM - 5:00 PM Central Time. Record requests for emergency care only can be directed to [phone] at any time.[facility] Encounters Date Type Department Care Team Description 11/02/2023 4:00 PM CDT Office Visit Department of Dermatology in [address] [phone] Kathleen Bearden M.D. Nevi Multiple (Primary Dx); Keratosis Seborrheic Discharge Disposition: Home or Self Care from Last 3 Months Allergies Active Allergy Reactions Criticality Noted Date [...] dinner. 5 04/28/2019 Active miscellaneous medical supply [facility] CPAP machine for home use at pressure: 10, full face mask with cushion x 1, 07/28/2018 Active SPRINTEC, 28, 0.25-35 mg-mcg per tablet TAKE 1 TABLET BY MOUTH EVERY DAY *TAKES CONTINUOUSLY* 2 03/19/2019 Active hydroCHLOROthiazide (MICROZIDE) 12.5 mg capsule TAKE 1 CAPSUKE BY MOUTH DAILY 12/24/2021 Active Social History Tobacco Use Types Packs/Day Years Used Date Smoking Tobacco: Never Smokeless Tobacco: Never Alcohol Use Standard Drinks/Week Comments Never 0 (1 standard drink = 0.6 oz pur e alcohol) [facility] Utilities Answer Date Recorded In the past 12 months has [facility] [employer], gas, oil, or water [employer] threatened to shut off services in your [...] often do you attend chur ch or temple services? More than 4 times per year 07/31/2022 Do you belong to any clubs o r organizations such as jehovah's witness groups, unions, fraternal or athletic groups, or [...] and heating? Not hard at all 07/31/2022 [facility] - Occupational Stress Questionnaire Answer Date Recorded [...] your living situation today? I have a [facility] place to live 10/28/2023 Education Answer Date Recorded What is the highest level of school you have completed or the highest degree you have received? Master's degree (e.g., MA, MS, Kevan, MEd, SIGNALS COLLECTOR/ANALYST, LENI) 02/09/2020 Sex and Gender Information Value [...] 01/28/2017 1:16 PM CDT Plan of Treatment Not on file Medical Devices Implanted Type Area General Operations Manager Device Identifier Shelf Expiration Date Model / Serial / Lot Imaging Marker Imaging Marker Left: Breast Procedures Procedure Name Priority Date/Time Associated Diagnosis Comments EXTI BASIC METABOLIC PANEL, FASTING, S Routine 05/10/2023 4:17 PM CDT from Last 3 Months or Most Recently Relevant to Health Maintenance
--- OUTSIDE RECORDS SUMMARY | 2024-01-04 12:38 | XMS_ITS | Encounter Summary ---
Author Organization [facility] Address [facility] [place] [address] Care Team Providers Care Die Repairer Trimmer Dies Name Role Phone Joleen Baeza MD Primary Care Provider Jerica Oleary PA-C Unavailable [phone] Jerica Oleary PA-C Primary Care Provider [phone] Reason for Visit * Reason Onset Date Comments Pt. Information/instruction 11/23/2012 Encounter Details Date Type Department Care Team (Late st Contact Info) Description 11/23/2012 MyC Medical Advice [facility] [address] [facility], [address] [place] [address] [place] [address] [place] [address] Pt. Information/instruct ion Social History Tobacco Use Types Packs/Day Years Used Date Smoking Tobacco: Never Smokeless Tobacco: Never Alcohol Use Standard Drinks/Week Comments No 0 (1 standard drink = 0.6 oz pur e alcohol) Sex and Gender Information Value Date Recorded Sex Assigned at Female 06/01/2023 10:21 AM TESTER COMPRESSED GASES Gender Identity Female 06/01/2023 10:21 AM TESTER COMPRESSED GASES Sexual Orientation Straight 06/01/2023 10 :21 AM TESTER COMPRESSED GASES documented as of this encounter Plan of Treatment Not on file documented as of this encounter Visit Diagnoses Not on filedocumented in this encounter Care Teams Die Repairer Trimmer Dies Relationship Specialty Start Date End Date Joleen Baeza MD PCP - General Family Practice 10/13/11 05/09/23 Jerica Oleary PA-C [place] [address] [place] [address] PCP - General 05/10/23 Jerica Oleary PA-C [place] [address] [place] [address] 05/10/23 documented as of this encounter
--- OUTSIDE RECORDS SUMMARY | 2024-01-04 12:38 | XMS_ITS ---
Author Organization [facility] Address [address] [place] [address] Care Team Providers Care Body Rolling Machine Tender Name Role Phone Unavailable Unavailable Unavailable Surgery Details Not on file Complications Check Surgery Details section. Procedure Estimated Blood Loss Check Surgery Details section. Procedure Findings Check Surgery Details section. Procedure Specimens Taken Check Surgery Details section.
--- OUTSIDE RECORDS SUMMARY | 2024-01-04 12:38 | XMS_ITS | Referral Summary ---
Author Organization [facility] Address [address] [place] [address] Care Team Providers Care Cash Clerk Name Role Phone Jerica Oleary PA-C Unavailable [phone] Jerica Oleary PA-C Primary Care Provider [phone] Allergies Active Allergy Reactions Criticality Noted Date [...] 50 MCG/ACT nasal sprayIndications:C hronic maxillary sinusitis Perry 2 sprays into both nostrils daily. 1 [...] Sex Assigned at Female 06/01/2023 10:21 AM GASOLINE TESTER Gender Identity Female 06/01/2023 10:21 AM GASOLINE TESTER Sexual Orientation Straight 06/01/2023 10 :21 AM GASOLINE TESTER Last Filed Vital Signs Vital Sign Reading [...] CDT Plan of Treatment Not on file Procedures Procedure Name Priority Date/Time Associated Diagnosis Comments BASIC METABOLIC PANEL STAT 05/10/2023 4:17 PM CDT TSH WITH FREE T4 REFLEX Routine 11/10/2012 3:44 PM CDT Hypothyroidism PAP IMAGED THIN LAYER SCREEN Routine 09/12/2010 2:59 PM GASOLINE TESTER Routine general medical examination at a [facility] care facility LIPID REFLEX TO DIRECT LDL PANEL Routine 08/28/2010 8:19 AM GASOLINE TESTER Hypothyroidism Obesity Weight gain Elevated C-reactive protein (CRP) CARDIOVASCULAR SCREENING; LDL GOAL LESS THAN 160 C MAMMOGRAM, BOTH BREASTS (DIAG) Routine 02/12/2005 10:07 AM CDT from Last 3 Months or Most Recently Relevant to Health Maintenance Results * (ABNORMAL) Basic metabolic panel (05/10/2023 4:17 PM CDT) [facility] Sodium 136 135 - 145 mmol/L 05/10/2023 [...] Morgan MD LAB - BLOOD ORDERABL ES [facility] [address] [facility] (1st floor, no room number) [place] [address], [facility] [phone] * TSH with free T4 reflex (11/10/2012 3:44 PM CDT) TSH 2.54 0.4 - 5.0 mU/L [facility] Blood specimen (specimen) 11/10/2012 3:44 PM CDT 11/10/2012 3:46 PM CDT Joleen Baeza MD LAB - BLOOD ORD ERABLES [facility] [address] [place] [address] * PAP imaged thin layer screen (09/12/2010 2:59 PM GASOLINE TESTER) PAP NIL SURESH Trujillo Report Patient Name: KEILA CUI MR#: [id number] Specimen #: [id number] Collected: 09/12/2010 Received: 09/16/2010 Reported: 09/17/2010 11:37 [...] Antonio ( ASCP) Processed and screened at [facility] CLINICAL HISTORY: LMP: 08/17/2010 Irregular Bleeding, Previous normal pap Date of Last Pap: 08/28/2009, Papanicolaou Test Limitations: ??Cervical cytology is a screening test with limited sensitivity; regular screening is critical for cancer prevention; Pap tests are primarily effective for the diagnosis/preventi on of squamous cell carcinoma, not adenocarcinomas or other cancers. TESTING LAB LOCATION: [facility] [address] [place], [place] ??[phone] COLLECTION SITE: Client: ??[facility] Location: [facility] (R) COPATH Cytologic material (specimen) 09/12/2010 2:59 PM GASOLINE TESTER 09/16/2010 10:24 AM GASOLINE TESTER Keila Henriquez PA-C LAB - OPTIME CLIN ICAL SPECIMEN COPATH * (ABNORMAL) Lipid panel reflex to direct LDL (08/28/2010 8:19 AM GASOLINE TESTER) Cholesterol 195 0 - 200 mg/dL [facility] Comment: LDL Cholesterol is the primary guide to therapy. The NCEP recommends further evaluation of: patients with cholesterol <200 mg/dL if additional risk factors are present, cholesterol >240 mg/dL, triglycerides >150 mg/dL, or HDL <40 mg/dL. Triglycerides 144 0 - 150 mg/dL [facility] HDL Cholesterol 45(L) 50 - 110 mg/dL [facility] LDL Cholesterol Calculated 122 0 - 129 mg/dL [facility] Comment: LDL Cholesterol is the primary guide to therapy: LDL-cholesterol goal in high risk patients is <100 mg/dL and in very high risk patients is <70 mg/dL. VLDL-Cholesterol 29 0 - 30 mg/dL [facility] Cholesterol/HDL Ratio 4.4 0.0 - 5.0 [facility] Blood specimen (specimen) 08/28/2010 8:19 AM GASOLINE TESTER 08/28/2010 8:21 AM GASOLINE TESTER Keila Henriquez PA-C LAB - BLOOD ORDER DAYSI [facility] * MAMMOGRAM, BOTH BREASTS (DIAG) (02/12/2005 [...] Recently Relevant to Health Maintenance Care Teams Cash Clerk Relationship Specialty Start Date End Date Jerica Oleary PA-C [address] [place] [address] PCP - General 05/10/23 Jerica Oleary PA-C [place] [address] [place], [place] [id number] 05/10/23
== END 2023-12-16 15:37 | disposition home or self-care (01) ==
LOC: NFLDREF 01-04 12:35
PROVIDERS: PCP Physician Assistant Medical; Referring Provider Physician Assistant Medical; Visit Provider Physician Assistant Medical
DX: E03.9 Hypothyroidism, unspecified (principal)
CPT/HCPCS: 84443

== ENCOUNTER 2024-01-19 13:00 | Outpatient (RCR) | payer BC, SELFPAY | END 2024-03-01 11:27 | disposition home or self-care (01) | PROVIDERS: PCP Physician Assistant Medical; Visit Provider Orthopaedic Surgery | DX: M25.551 Pain in right hip (principal); R53.1 Weakness; Z51.89 Encounter for other specified aftercare | CPT/HCPCS: 97110; 97140; 97161 ==

== ENCOUNTER 2024-02-17 12:56 | Outpatient (CLI) | payer BC, SELFPAY ==
--- NOTE | 2024-02-17 13:00 | CRLHL7_ITS ---
For Patients: As a result of the Century Cures Act, medical imaging exams and procedure reports are released immediately into your electronic medical record. You may view this report before your referring provider. If you have questions, please contact your health care provider. BILATERAL SCREENING MAMMOGRAM WITH COMPUTER-AIDED DETECTION AND TOMOSYNTHESIS TECHNIQUE: CC and MLO views were obtained. These mammographic images have been obtained using full-field digital technique. These mammographic images were interpreted with the benefit of computer-aided detection. Breast Tomosynthesis was used in this interpretation. COMPARISON FILM: 02/15/23, 02/12/22, 02/10/21. FINDINGS: There are scattered areas of fibroglandular density IMPRESSION: There is no radiographic evidence for malignancy. ASSESSMENT: BI-RADS Category 2: Benign RECOMMENDATION: Routine screening mammogram in 1 year. A lay language report of this examination will be provided to the patient. Robert Deleon M.D. Diagnostic Radiologist [email or web address] CHIKIS/Dictated by: Robert Deleon MD @ 02/18/2024 9:29:00 AM (Electronically Signed)
--- OUTSIDE RECORDS SUMMARY | 2024-02-17 13:01 | XMS_ITS | Clinical Summary ---
Author Organization [facility] Address [address] [place] [address] Care Team Providers Care Dining Chair Seat Cushion Trimmer Name Role Phone Unavailable Primary Care Provider Unavailabl e Source Comments Patient records contain information from all sites at [facility]. For routine questions regarding patient records, call [phone] during business hours, M-F 8:00 AM - 5:00 PM Central Time. Record requests for emergency care only can be directed to [phone] at any time.[facility] Allergies Active Allergy Reactions Criticality Noted Date [...] dinner. 5 04/28/2019 Active miscellaneous medical supply [facility] CPAP machine for home use at pressure: [...] drink = 0.6 oz pur e alcohol) [facility] interclickities Answer Date Recorded In the past 12 months has e [employer], [employer], oil, or water [employer] threatened to shut off services in your [...] often do you attend chur ch or tenriism services? More than 4 times per year 07/31/2022 Do you belong to any clubs o r organizations such as christianity groups, unions, fraternal or athletic groups, or [...] and heating? Not hard at all 07/31/2022 [facility] - Occupational Stress [...] Date Recorded Dental: Regular Dentist Yes 07/04/20 21 Employment Answer Date Recorded Employment status Employed and actively working without restrictions 10/28/2023 Housing Stability Answer Date Recorded What is your living situation today? I have a [facility] to live 10/28/2023 Education Answer Date Recorded What is the highest level of school you have completed or the highest degree you have received? Master's degree (e.g., MA, MS, Kevan, MEd, AGGREGATE CONVEYOR OPERATOR, LENI) 02/09/2020 Sex and Gender Information [...] series) 1997 Depression Screening (Annual PHQ-2) 07/26/2023 Influenza Vaccine (#1) 2024 , 05/20/2023, 03/28/2022, Additional history exists Cervical Cancer Screening 09/10/20242021, 08/05/2015 (Performed elsewhere) Fasting Glucose for Diabetes Screening 05/10/2026 05/10/2023 DTaP,Tdap,and Td Vaccines (5 - Td or Tdap) 07/01/2028 07/01/2018, 11/09/2013, 03/02/2013, Additional history exists COVID-19 Vaccine Completed 06/16/2023, 09/2021, 05/16/2021, Additional history exists Pneumococcal vaccine (0-64 years) Aged Out No longer eligible based on patient's age to complete this topic Medical Devices Implanted Type Area Pony Worker Device Identifier Shelf Expiration Date Model / Serial / Lot Imaging Marker Imaging Marker Left: Breast
--- OUTSIDE RECORDS SUMMARY | 2024-02-17 13:01 | XMS_ITS ---
Author Organization [facility] Address [address] [place] [address] Care Team Providers Care Masonry Teacher Name Role Phone Unavailable Unavailable Unavailable Surgery Details Not on file Complications Check Surgery Details section. Procedure Estimated Blood Loss Check Surgery Details section. Procedure Findings Check Surgery Details section. Procedure Specimens Taken Check Surgery Details section.
--- OUTSIDE RECORDS SUMMARY | 2024-02-17 13:01 | XMS_ITS | Referral Summary ---
Author Organization [facility] Address [address] [place] [address] Care Team Providers Care Boat Loader Helper Name Role Phone Unavailable Primary Care Provider Unavailabl e Source Comments Patient records contain information from all sites at [facility]. For routine questions regarding patient records, call [phone] during business hours, M-F 8:00 AM - 5:00 PM Central Time. Record requests for emergency care only can be directed to [phone] at any time.[facility] Allergies Active Allergy Reactions Criticality Noted Date [...] dinner. 5 04/28/2019 Active miscellaneous medical supply [facility] [place] [place] CPAP machine for home use at pressure: [...] drink = 0.6 oz pur e alcohol) [facility] JETMEities Answer Date Recorded In the past 12 months has e [employer], [employer], oil, or water [employer] threatened to shut off services in your [...] often do you attend chur ch or moravian services? More than 4 times per year 07/31/2022 Do you belong to any clubs o r organizations such as gnosticism groups, unions, fraternal or athletic groups, or [...] and heating? Not hard at all 07/31/2022 [facility] - Occupational [...] your living situation today? I have a [place] place to live 10/28/2023 Education Answer Date Recorded What is the highest level of school you have completed or the highest degree you have received? Master's degree (e.g., MA, MS, Kevan, MEd, TRUCK TRAILER FINAL INSPECTOR, LENI) 02/09/2020 Sex and Gender Information Value [...] on file Medical Devices Implanted Type Area Tax Evaluator Device Identifier Shelf Expiration Date Model / Serial / Lot Imaging Marker Imaging Marker Left: Breast
--- OUTSIDE RECORDS SUMMARY | 2024-02-17 13:02 | XMS_ITS | Clinical Summary ---
Author Organization [employer] [facility] Address [place], [place] [address] Care Team Providers Care Stroboroma Operator Name Role Phone Pcp, No Primary Care Provider Unavailabl e Allergies Active Allergy Reactions Criticality Noted Date Comments Metronidazole Other - Describe In Comment Field 02/04/2017 Nerve damage Melatonin Other - Describe In Comment Field 03/24/2018 Interferes with estrogen absorbtion Sulfa (Sulfonamide Antibiotics) Hives 02/11/2016 Medications Medication Sig Dispensed Refills Start Date End Date Status norgestimate-ethi nyl estradiol, 0.25-35 mg-mcg, (SPRINTEC) 0.25-35 mg-mcg tablet Take 1 tablet by mouth once daily. 1 Package 0 02/11/2016 Active vitamin D3-vitamin K2, MK4, 1,000-100 unit-mcg tab Take by mouth. 0 09/02/2016 Active gemfibrozil (LOPID) 600 mg tablet Take 1 tablet by mouth 2 times daily before meals. 0 05/04/2019 Active multivitamins-debo jddk-kqff-vropiii s (Multiple Vitamin, Womens) tab tablet Take 1 Tablet by mouth once daily. 0 08/07/2021 Active levothyroxine (SYNTHROID) 100 mcg tablet Take one daily 09/10/2021 Active CPAPIndications:O bstructive sleep apnea of adult CPAP machine for home use at pressure 10, choice of mask, lifetime length of need, daily use. 1 Each 11 09/20/2023 Active colestipoL (COLESTID) 1 gram tabletIndications :Diarrhea, unspecified type,Bile salt-induced diarrhea TAKE 4 TABLETS (4 G) BY MOUTH ONCE DAILY. 360 Tablet 02/08/2024 Active colestipoL (COLESTID) 1 gram tabletIndications :Diarrhea, unspecified type,Bile salt-induced diarrhea Take 4 Tablets (4 g) by mouth once daily. 360 Tablet 3 02/11/2023 4 Discontinued Active Problems Problem Noted Date Diagnosed Date NADYA (obstructive sleep apnea) 07/07/2017 Encounters Date Type Department Care Team Description 02/07/2024 Refill [facility] [address] [place] [address] Pablo Pérez MD Refill Request (Colestipol) from Last 3 Months Immunizations Name Administration Dates Next Due Influenza A (H1N1), Inactivated 08/06/2009 Influenza, IIV3 (Age >=3 years) 04/27/2013,04/28,05/08/2010 Influenza, IIV4 03/16/2021 Influenza,LAIV3 Live Intranasal (Flumist) 2010 Td, Preservative Free (age >= 7 Years) [...] Comments Blood Pressure 118/66 09/04/2019 3:43 PM INTERLOCKING AND SIGNAL MECHANIC Pulse 77 09/04/2019 3:43 PM INTERLOCKING AND SIGNAL MECHANIC Temperature 36.9 ??C (98.4 ??F) 02/04/2017 2:15 PM CD T Respiratory Rate 18 09/04/2019 3:43 PM INTERLOCKING AND SIGNAL MECHANIC Oxygen Saturation 97% 09/04/2019 3:43 PM INTERLOCKING AND SIGNAL MECHANIC RA rest Inhaled Oxygen Concentration - - Weight 119.3 kg (263 lb) 09/04/2019 3:43 PM INTERLOCKING AND SIGNAL MECHANIC Height 167.6 cm (5' 6) 09/04/2019 3:43 PM INTERLOCKING AND SIGNAL MECHANIC Body Mass Index 42.45 09/04/2019 3:43 PM INTERLOCKING AND SIGNAL MECHANIC Plan of Treatment Upcoming Encounters Date Type Department Care Team (Late st Contact Info) Description 05/26/2024 8:30 AM CDT Phone Office Visit [facility] [address] [place] [address] Pablo Pérez MD [address] [place] [address] Health Maintenance Due Date Last Done Comments [...] 03/02/2013, Additional history exists Tdap Completed 07/01/2018, 080 02/2013, 09/03/2008 COVID-19 vaccine series Completed 06/16/20 23, 03/28/2022, 05/16/2021, Additional history exists Pneumococcal series for age 6-64 Aged Out No longer eligible based on patient's age to complete this topic Procedures Procedure Name Priority Date/Time Associated Diagnosis Comments ROCKET ASSEMBLY OPERATOR THIN PREP PAP SCREEN IMAGED Routine 09/10/2021 10:00 AM INTERLOCKING AND SIGNAL MECHANIC from Last 3 Months or Most Recently Relevant to Health Maintenance Results * ROCKET ASSEMBLY OPERATOR THIN PREP PAP SCREEN IMAGED (09/10/2021 10:00 AM INTERLOCKING AND SIGNAL MECHANIC) Case Report Gynecologic Cytology Report ? Case: [id number] ? Authorizing Provider: ??Andreea Zee ?Collected: ? 09/10/2021 1000 ? MD Esise ? Ordering Location: ? [facility] ?Received: ?09/11/2021 0929 ? First Screen: ?Radhames Ospina ? Specimen: ?ROCKET ASSEMBLY OPERATOR ThinPrep Vial Screening, Cervical/Vaginal ? 09/19/2021 10:14 AM INTERLOCKING AND SIGNAL MECHANIC [facility] LABORAT[facility]-C ENTRAL LABORATORY INTERPRETATION/ RESULT NEGATIVE FOR INTRAEPITHELIAL LESION OR MALIGNANCY (NIL) (none) 09/19/2021 10:14 AM INTERLOCKING AND SIGNAL MECHANIC [facility] ENTRAL LABORATORY IMEN ADEQUACY Satisfactory for evaluation Endocervical component present 09/19/2021 10:14 AM [facility] HPV REQUEST HPV and PAP 09/19/2021 10:14 AM [facility] Last Pap Date 08/19/2015 09/19/2021 10:14 AM [facility] Last Pap Result NIL 10:14 AM [facility] Comment:HPV neg Menstrual Status 09/19/2021 10:14 AM [facility] Comment: control Additional Information 09/19/2021 10:14 AM [facility] Comment: Interpreted at [facility] - [address], [place] [address] Automated Review Successful 09/19/2021 10:14 AM [facility] Comment:Specimen processed s uccessfully by automated flame gouger device, Synthon[employer]Prep Imaging System, [employer] ANCILLARY TESTING ROCKET ASSEMBLY OPERATOR HPV Ordered, Please see separate report 09/19/2021 10:14 AM [facility] Note The pap test is a screening technique, not a diagnostic procedure. It is used primarily to screen for squamous cancers and precursor lesions. Published studies have shown that it is subject to both false negative and false positive results. The pap test should not be used as the sole means to diagnose or exclude pre-malignant and malignant lesions. 09/19/2021 10:14 AM [facility] Other (Cervical/Vagina l) 09/10/2021 10:00 AM INTERLOCKING AND SIGNAL MECHANIC 09/11/2021 9:29 AM [facility] Andreea Zee MD PATHOLOGY/ CYTOLOGY [facility] [address] [place] [address], from Last 3 Months or Most Recently Relevant to Health Maintenance Care Teams Stroboroma Operator Relationship Specialty Start Date End Date Pcp, No . PCP - General 01/06/23
--- OUTSIDE RECORDS SUMMARY | 2024-02-17 13:02 | XMS_ITS | Clinical Summary ---
Author Organization [facility] Address [address] [place] [address] Care Team Providers Care Materials And Corrosion Engineer Name Role Phone Jerica Oleary PA-C Unavailable [phone] Jerica Oleary PA-C Primary Care Provider [...] 50 MCG/ACT nasal sprayIndications:C hronic maxillary sinusitis [place] 2 sprays into both nostrils daily. 1 [...] Sex Assigned at Female 06/01/2023 10:21 AM TRENCHING MACHINE OPERATOR Gender Identity Female 06/01/2023 10:21 AM TRENCHING MACHINE OPERATOR Sexual Orientation Straight 06/01/2023 10 :21 AM TRENCHING MACHINE OPERATOR Last Filed Vital Signs Vital Sign Reading [...] exists LIPID 2018 08/28/2010, 06/19/2009 COVID-19 Vaccine (2022- season) 2023 03/28/2022, 05/16/2021, 10/18/2020, Additional history exists PHQ-2 (once per calendar year) 2023 INFLUENZA VACCINE (#1) 2024 , 03/16/2021, 04/27/2013, Additional history exists GLUCOSE 05/10/2026 [...] THIN LAYER SCREEN Routine 09/12/2010 2:59 PM TRENCHING MACHINE OPERATOR Routine general medical examination at a [facility] care facility LIPID REFLEX TO DIRECT LDL PANEL Routine 08/28/2010 8:19 AM TRENCHING MACHINE OPERATOR Hypothyroidism Obesity Weight gain Elevated C-reactive protein [...] MD LAB - BLOOD ORDERABL ES LABORATORY [facility] [address] [facility] (1st floor, no room number) [place] [address], [facility] [phone] * TSH with free T4 reflex (11/10/2012 3:44 PM CDT) TSH 2.54 0.4 - 5.0 mU/L [facility] Blood specimen (specimen) 11/10/2012 3:44 PM CDT 11/10/2012 3:46 PM CDT Joleen Baeza MD LAB - BLOOD ORD ERABLES [facility] [address] [place] [address] * PAP imaged thin layer screen (09/12/2010 2:59 PM TRENCHING MACHINE OPERATOR) PAP NIL SURESH Trujillo Report Patient Name: KEILA CUI MR#: [id number] Specimen #: [id number] Collected: 09/12/2010 Received: 09/16/2010 Reported: 09/17/2010 11:37 [...] Antonio ( ASCP) Processed and screened at [facility] CLINICAL HISTORY: LMP: 08/17/2010 Irregular Bleeding, Previous normal pap Date of Last Pap: 08/28/2009, Papanicolaou Test Limitations: ??Cervical cytology is a screening test with limited sensitivity; regular screening is critical for cancer prevention; Pap tests are primarily effective for the diagnosis/preventi on of squamous cell carcinoma, not adenocarcinomas or other cancers. TESTING LAB LOCATION: [address] ??[address] COLLECTION SITE: Client: ??[facility] Location: FMFP (R) COPATH Cytologic material (specimen) 09/12/2010 2:59 PM TRENCHING MACHINE OPERATOR 09/16/2010 10:24 AM TRENCHING MACHINE OPERATOR Keila GA[facility] - OPT[facility] CLIN ICAL SPECIMEN COPATH * (ABNORMAL) Lipid panel reflex to direct LDL (08/28/2010 8:19 AM TRENCHING MACHINE OPERATOR) Cholesterol 195 0 - 200 mg/dL [facility] Comment: LDL Cholesterol is the primary guide to therapy. The NCEP recommends further evaluation of: patients with cholesterol <200 mg/dL if additional risk factors are present, cholesterol >240 mg/dL, triglycerides >150 mg/dL, or HDL <40 mg/dL. Triglycerides 144 0 - 150 mg/dL [facility] HDL Cholesterol 45(L) 50 - 110 mg/dL [facility] LDL Cholesterol Calculated 122 0 - 129 mg/dL [facility] Comment: LDL Cholesterol is the primary guide to therapy: LDL-cholesterol goal in high risk patients is <100 mg/dL and in very high risk patients is <70 mg/dL. VLDL-Cholesterol 29 0 - 30 mg/dL [facility] Cholesterol/HDL Ratio 4.4 0.0 - 5.0 [facility] Blood specimen (specimen) 08/28/2010 8:19 AM TRENCHING MACHINE OPERATOR 08/28/2010 8:21 AM TRENCHING MACHINE OPERATOR Keila Henriquez PA-C LAB - BLOOD ORDER DAYSI [facility] * MAMMOGRAM, BOTH BREASTS [...] Recently Relevant to Health Maintenance Care Teams Materials And Corrosion Engineer Relationship Specialty Start Date End Date Jerica Oleary PA-C [address] [place] [address] PCP - General 05/10/23 Jerica Oleary PA-C [place] [address] [place] [address] 05/10/23
--- OUTSIDE RECORDS SUMMARY | 2024-02-17 13:02 | XMS_ITS | Encounter Summary ---
Author Organization [place] Address [facility] [place] [address] Care Team Providers Care Risk Management Specialist Name Role Phone Joleen Baeza MD Primary Care Provider Jerica Oleary PA-C Unavailable [phone] Jerica Oleary PA-C Primary Care Provider [phone] Reason for Visit * Reason Onset Date Comments Pt. Information/instruction 11/23/2012 Encounter Details Date Type Department Care Team (Late st Contact Info) Description 11/23/2012 MyC Medical Advice [facility] [address] [facility], [address] [place] [address] [place] [address] [place] [address] Pt. Information/instruct ion Social History Tobacco Use Types Packs/Day Years Used Date Smoking Tobacco: Never Smokeless Tobacco: Never Alcohol Use Standard Drinks/Week Comments No 0 (1 standard drink = 0.6 oz pur e alcohol) Sex and Gender Information Value Date Recorded Sex Assigned at Female 06/01/2023 10:21 AM FORMS ANALYST Gender Identity Female 06/01/2023 10:21 AM FORMS ANALYST Sexual Orientation Straight 06/01/2023 10 :21 AM FORMS ANALYST documented as of this encounter Plan of Treatment Not on file documented as of this encounter Visit Diagnoses Not on filedocumented in this encounter Care Teams Risk Management Specialist Relationship Specialty Start Date End Date Joleen Baeza MD PCP - General Family Practice 10/13/11 05/09/23 Jerica Oleary PA-C [place] [address] [place] [address] PCP - General 05/10/23 Jerica Oleary PA-C [place] [address] [place] [address] 05/10/23 documented as of this encounter
--- OUTSIDE RECORDS SUMMARY | 2024-02-17 13:02 | XMS_ITS | Encounter Summary ---
Author Organization [place] Address [facility] [place] [address] Care Team Providers Care Spray Pilot Name Role Phone Joleen Baeza MD Primary Care Provider Jerica Oleary PA-C Unavailable [phone] Jerica Oleary PA-C Primary Care Provider [phone] Reason for Visit * Reason Onset Date Comments Refill Request 11/22/2012 Flonase Encounter Details Date Type Department Care Team (Late st Contact Info) Description 11/22/2012 MyC Refill [place] [address] [facility], [address] [place] [address] [place] [address] [place], [place] [address] Refill Request (Flonase) Social History Tobacco Use Types Packs/Day Years Used Date Smoking Tobacco: Never Smokeless Tobacco: Never Alcohol Use Standard Drinks/Week Comments No 0 (1 standard drink = 0.6 oz pur e alcohol) Sex and Gender Information Value Date Recorded Sex Assigned at Female 06/01/2023 10:21 AM ASSISTANT EDITOR Gender Identity Female 06/01/2023 10:21 AM ASSISTANT EDITOR Sexual Orientation Straight 06/01/2023 10 :21 AM ASSISTANT EDITOR documented as of this encounter Miscellaneous Notes [...] Delisa - 11/23/2012 7:39 AM [facility] Original authorizing provider: MD Dean Chiangth Carlito Whitney would like a refill of the following medications: fluticasone (FLONASE) 50 MCG/ACT nasal spray [Joleen Baeza MD] Preferred pharmacy: [id number] - [place] - [address] [address] Comment: It makes it easier to breath at night with my CPAP - I only need it once every few months, but I'm about to run out. :) documented in this encounter Plan of Treatment Not on file documented as of this encounter Visit Diagnoses Diagnosis Chronic maxillary sinusitis- Primary documented in this encounter Care Teams Spray Pilot Relationship Specialty Start Date End Date Joleen Baeza MD PCP - General Family Practice 10/13/11 05/09/23 Jerica Oleary PA-C [facility] [place] [address] [place] [address] PCP - General 05/10/23 Jerica Oleary PA-C [address] [place], [place] [address] 05/10/23 documented as of this encounter
--- OUTSIDE RECORDS SUMMARY | 2024-02-17 13:02 | XMS_ITS | Referral Summary ---
Author Organization [facility] Address [address] [place] [address] Care Team Providers Care Glass Mechanic Name Role Phone Jerica Oleary PA-C Unavailable [phone] Jerica Oleary PA-C Primary Care Provider [phone] Allergies Active Allergy Reactions Criticality Noted Date [...] 50 MCG/ACT nasal sprayIndications:C hronic maxillary sinusitis [place] 2 sprays into both nostrils daily. 1 [...] Sex Assigned at Female 06/01/2023 10:21 AM BRUSHER TENDER Gender Identity Female 06/01/2023 10:21 AM BRUSHER TENDER Sexual Orientation Straight 06/01/2023 10 :21 AM BRUSHER TENDER Last Filed Vital Signs Vital Sign Reading [...] THIN LAYER SCREEN Routine 09/12/2010 2:59 PM BRUSHER TENDER Routine general medical examination at a [facility] care facility LIPID REFLEX TO DIRECT LDL PANEL Routine 08/28/2010 8:19 AM BRUSHER TENDER Hypothyroidism Obesity Weight gain Elevated C-reactive protein (CRP) CARDIOVASCULAR SCREENING; LDL GOAL LESS THAN 160 C MAMMOGRAM, BOTH BREASTS (DIAG) Routine 02/12/2005 10:07 AM CDT from Last 3 Months or Most Recently Relevant to Health Maintenance Results * (ABNORMAL) Basic metabolic panel (05/10/2023 4:17 PM CDT) [facility] [address] Sodium 136 135 - 145 mmol/L 05/10/2023 [...] [place] MD LAB - BLOOD ORDERABL ES [facility] Acute Care Lab [address] Lab (1st floor, no room number) [place] [address], [facility] [phone] * TSH with free T4 reflex (11/10/2012 3:44 PM CDT) TSH 2.54 0.4 - 5.0 mU/L [facility] Blood specimen (specimen) 11/10/2012 3:44 PM CDT 11/10/2012 3:46 PM CDT Joleen Baeza MD LAB - BLOOD ORD ERABLES [facility] [address] [place] [address] * PAP imaged thin layer screen (09/12/2010 2:59 PM BRUSHER TENDER) PAP NIL SURESH Trujillo Report Patient Name: KEILA CUI MR#: [id number] Specimen #: [id number] Collected: 09/12/2010 Received: 09/16/2010 Reported: 09/17/2010 11:37 [...] Antonio ( ASCP) Processed and screened at [facility], [facility] CLINICAL HISTORY: LMP: 08/17/2010 Irregular Bleeding, Previous normal pap Date of Last Pap: 08/28/2009, Papanicolaou Test Limitations: ??Cervical cytology is a screening test with limited sensitivity; regular screening is critical for cancer prevention; Pap tests are primarily effective for the diagnosis/preventi on of squamous cell carcinoma, not adenocarcinomas or other cancers. TESTING LAB LOCATION: [facility] [address] [place], [place] ??[address] COLLECTION SITE: Client: ??[facility] Location: FMFP (R) COPATH Cytologic material (specimen) 09/12/2010 2:59 PM BRUSHER TENDER 09/16/2010 10:24 AM BRUSHER TENDER Keila Henriquez PA-C LAB - OPTIME CLIN ICAL SPECIMEN COPATH * (ABNORMAL) Lipid panel reflex to direct LDL (08/28/2010 8:19 AM BRUSHER TENDER) Cholesterol 195 0 - 200 mg/dL [facility] Comment: LDL Cholesterol is the primary guide to therapy. The NCEP recommends further evaluation of: patients with cholesterol <200 mg/dL if additional risk factors are present, cholesterol >240 mg/dL, triglycerides >150 mg/dL, or HDL <40 mg/dL. Triglycerides 144 0 - 150 mg/dL [facility] HDL Cholesterol 45(L) 50 - 110 mg/dL [facility] LDL Cholesterol Calculated 122 0 - 129 mg/dL [facility] Comment: LDL Cholesterol is the primary guide to therapy: LDL-cholesterol goal in high risk patients is <100 mg/dL and in very high risk patients is <70 mg/dL. VLDL-Cholesterol 29 0 - 30 mg/dL [facility] Cholesterol/HDL Ratio 4.4 0.0 - 5.0 [facility] Blood specimen (specimen) 08/28/2010 8:19 AM BRUSHER TENDER 08/28/2010 8:21 AM BRUSHER TENDER Keila Herniquez PA-C LAB - BLOOD ORDER DAYSI [facility] * MAMMOGRAM, BOTH BREASTS (DIAG) (02/12/2005 [...] Recently Relevant to Health Maintenance Care Teams Glass Mechanic Relationship Specialty Start Date End Date Jerica Oleary PA-C [address] [place] [address] PCP - General 05/10/23 Jerica Oleary PA-C [place] [address] [place], [place] [id number] 05/10/23
== END 2024-02-17 12:57 | disposition home or self-care (01) ==
LOC: MAMMO 12:57
PROVIDERS: PCP Physician Assistant Medical; Visit Provider Physician Assistant Medical
DX: Z12.31 Encounter for screening mammogram for malignant neoplasm of breast (principal)
CPT/HCPCS: 77063; 77067

== ENCOUNTER 2024-03-17 11:30 | Outpatient (RCR) | payer BC, SELFPAY | END 2024-06-19 13:55 | disposition home or self-care (01) | PROVIDERS: PCP Physician Assistant Medical; Visit Provider Obstetrics & Gynecology | DX: R32 Unspecified urinary incontinence (principal); Z51.89 Encounter for other specified aftercare | CPT/HCPCS: 73721; 97110; 97112; 97162; 97535 ==

== ENCOUNTER 2024-04-14 15:02 | Outpatient (CLI) | payer BC, SELFPAY ==
--- OUTSIDE RECORDS SUMMARY | 2024-04-19 11:10 | XMS_ITS | Clinical Summary ---
Author Organization [facility] Address [address] [place] [address] Care Team Providers Care Personnel Coordinator Name Role Phone Unavailable Primary Care Provider Unavailabl e Source Comments Patient records contain information from all sites at [facility]. For routine questions regarding patient records, call [phone] during business hours, M-F 8:00 AM - 5:00 PM Central Time. Record requests for emergency care only can be directed to [phone] at any time.[facility] Allergies Active Allergy Reactions Criticality Noted Date [...] dinner. 5 04/28/[address] [facility] CPAP machine for home use at pressure: [...] = 0.6 oz pur e alcohol) [facility] Cignifiities Answer Date Recorded In the past 12 months has e [employer], [employer], oil, or water [employer] threatened to shut off services in your [...] often do you attend chur ch or pentecostal services? More than 4 times per year 07/31/2022 Do you belong to any clubs o r organizations such as mandaeism groups, unions, fraternal or athletic groups, or [...] and heating? Not hard at all 07/31/2022 [facility] - Occupational Stress [...] your living situation today? I have a [facility] place to live 10/28/2023 Education Answer Date Recorded What is the highest level of school you have completed or the highest degree you have received? Master's degree (e.g., MA, MS, Kevan, MEd, LOCAL COORDINATOR, LENI) 02/09/2020 Sex and Gender Information Value [...] series) 1997 Depression Screening (Annual PHQ-2) 07/26/2023 COVID-19 Vaccine ( season) 2024 06/16/2023, 03/28/2022, 05/16/2021, Additional history exists Influenza Vaccine (#1) 2024 , 05/20/2023, 03/28/2022, Additional history exists Cervical Cancer Screening 09/10/20242021, 08/05/2015 (Performed elsewhere) Fasting Glucose for Diabetes Screening 05/10/2026 05/10/2023 DTaP,Tdap,and Td Vaccines (5 - Td or Tdap) 07/01/2028 07/01/2018, 11/09/2013, 03/02/2013, Additional history exists Pneumococcal vaccine (0-64 years) Aged Out No longer eligible based on patient's age to complete this topic Medical Devices Implanted Type Area Dustless Operator Device Identifier Shelf Expiration Date Model / Serial / Lot Imaging Marker Imaging Marker Left: Breast
--- OUTSIDE RECORDS SUMMARY | 2024-04-19 11:11 | XMS_ITS ---
Author Organization [facility] Address [address] [place] [address] Care Team Providers Care Bake Room Worker Name Role Phone Unavailable Unavailable Unavailable Surgery Details Not on file Complications Check Surgery Details section. Procedure Estimated Blood Loss Check Surgery Details section. Procedure Findings Check Surgery Details section. Procedure Specimens Taken Check Surgery Details section.
--- OUTSIDE RECORDS SUMMARY | 2024-04-19 11:11 | XMS_ITS | Referral Summary ---
Author Organization [facility] Address [address] [place] [address] Care Team Providers Care Circuit Judge Name Role Phone Unavailable Primary Care Provider Unavailabl e Source Comments Patient records contain information from all sites at [facility]. For routine questions regarding patient records, call [phone] during business hours, M-F 8:00 AM - 5:00 PM Central Time. Record requests for emergency care only can be directed to [phone] at any time.[facility] Allergies Active Allergy Reactions Criticality Noted Date [...] dinner. 5 04/28/2019 Active miscellaneous medical supply [facility] CPAP machine for home use at pressure: [...] 0.6 oz pur e alcohol) [facility] Flirqities Answer Date Recorded In the past 12 months has e [employer], [employer], oil, or water [employer] threatened to shut off services in your [...] often do you attend chur ch or protestant services? More than 4 times per year 07/31/2022 Do you belong to any clubs o r organizations such as yazidism groups, unions, fraternal or athletic groups, or [...] and heating? Not hard at all 07/31/2022 [facility] of Occupat ional Health - Occupational [...] Master's degree (e.g., MA, MS, Kevan, MEd, HEALTH INFORMATION CODER, LENI) 02/09/2020 Sex and Gender Information Value [...] on file Medical Devices Implanted Type Area Community Integration Specialist Device Identifier Shelf Expiration Date Model / Serial / Lot Imaging Marker Imaging Marker Left: Breast
--- OUTSIDE RECORDS SUMMARY | 2024-04-19 11:11 | XMS_ITS | Clinical Summary ---
Author Organization [facility] Address [place], [place] [address] Care Team Providers Care Talking Books Library Clerk Name Role Phone Pcp, No Primary Care [...] daily before meals. 0 05/04/2019 Active multivitamins-calciu r-kkbo-wtyvleft (Multiple Vitamin, Womens) tab tablet Take 1 Tablet by mouth once daily. 0 08/07/2021 Active levothyroxine (SYNTHROID) 100 mcg tablet Take one daily 09/10/2021 Active CPAPIndications:Obst ructive sleep apnea of adult CPAP machine for home use at pressure 10, choice of mask, lifetime length of need, daily use. 1 Each 11 09/20/2023 Active colestipoL (COLESTID) 1 gram tabletIndications:Di arrhea, unspecified type,Bile salt-induced diarrhea TAKE 4 TABLETS (4 G) BY MOUTH ONCE DAILY. 360 Tablet 02/08/2024 Active Active Problems Problem Noted Date Diagnosed Date NADYA (obstructive sleep apnea) 07/07/2017 Encounters Date Type Department Care Team Description 02/07/2024 Refill [facility] [address] [place] [address] Pablo Pérez MD Refill Request (Colestipol) from [...] Comments Blood Pressure 118/66 09/04/2019 3:43 PM PROJECT ACCOUNT MANAGER Pulse 77 09/04/2019 3:43 PM PROJECT ACCOUNT MANAGER Temperature 36.9 ??C (98.4 ??F) 02/04/2017 2:15 PM CD T Respiratory Rate 18 09/04/2019 3:43 PM PROJECT ACCOUNT MANAGER Oxygen Saturation 97% 09/04/2019 3:43 PM PROJECT ACCOUNT MANAGER RA rest Inhaled Oxygen Concentration - - Weight 119.3 kg (263 lb) 09/04/2019 3:43 PM PROJECT ACCOUNT MANAGER Height 167.6 cm (5' 6) 09/04/2019 3:43 PM PROJECT ACCOUNT MANAGER Body Mass Index 42.45 09/04/2019 3:43 PM PROJECT ACCOUNT MANAGER Plan of Treatment Upcoming Encounters Date Type Department Care Team (Late st Contact Info) Description 05/26/2024 8:30 AM CDT Phone Office Visit [facility] [address] [place] [phone] Pablo Pérez MD [address] [place] [address] Health Maintenance Due Date Last Done Comments Depression screening for age 12+ 1990 HIV for age 15-65 1993 Hepatitis C screening for age 18-79 01/18/1996 BMI (ht and wt on same day) for age 18+ 09/04/2020 09/04/2019, 07/07/2017, 09/02/2016, Additional history exists Colonoscopy through age 75 2023 Lipids for age 45-75 2023 Mammogram for age 45-75 2023 COVID-19 vaccine series ( season) 2024 06/16/2023, 03/28/2022, 05/16/2021, Additional history exists Influenza for age 9-49 03/26/2024 1, 04/27/2013, 04/28/2012, Additional history exists Pap test for age 21-65 09/10/2024 2, 09/10/2020, 08/19/2015, Additional history exists Tetanus booster 07/01/2028 07/01/2018, 10/24, 03/02/2013, Additional history exists Tdap Completed 07/01/2018, 02/2013, 09/03/2008 Pneumococcal series for age 6-64 Aged Out No longer eligible based on patient's age to complete this topic Procedures Procedure Name Priority Date/Time Associated Diagnosis Comments ACCOUNTING CLERK THIN PREP PAP SCREEN IMAGED Routine 09/10/2021 10:00 AM PROJECT ACCOUNT MANAGER from Last 3 Months or Most Recently Relevant to Health Maintenance Results * ACCOUNTING CLERK THIN PREP PAP SCREEN IMAGED (09/10/2021 10:00 AM PROJECT ACCOUNT MANAGER) Case Report Gynecologic Cytology Report ? Case: [id number] ? Authorizing Provider: ??Andreea Zee ?Collected: ? 09/10/2021 1000 ? Essie, ? Ordering Location: ? [facility] ?Received: ?09/11/2021 0929 ? First Screen: ?Radhames Ospina ? Specimen: ?ACCOUNTING CLERK ThinPrep Vial Screening, Cervical/Vaginal ? 09/19/2021 10:14 AM [facility] Medical LABORATORY-C ENTRAL LABORATORY INTERPRETATION/ RESULT NEGATIVE FOR INTRAEPITHELIAL LESION OR MALIGNANCY (NIL) (none) 09/19/2021 10:14 AM [facility] Medical LABORATORY-C ENTRAL LABORATORY IMEN ADEQUACY Satisfactory for evaluation Endocervical component present 09/19/2021 10:14 AM [facility] Medical LABORATORY-C ENTRAL LABORATORY HPV REQUEST HPV and PAP 09/19/2021 10:14 AM PROJECT ACCOUNT MANAGER [facility] Medical LABORATORY-C ENTRHI LABORATORY Last Pap Date 08/19/2015 09/19/2021 10:[address] [facility] LABORAT[facility] Last Pap Result NIL 10:[address] [facility] Comment:HPV neg Menstrual Status 09/19/2021 10:14 AM [facility] ENTRHI LABORATORY Comment: control Additional Information 09/19/2021 10:[address] [facility] Comment: Interpreted at [facility] [employer] [facility] Laboratory - [address], [place] [address] Automated Review Successful 09/19/2021 10:[address] [facility] Comment:Specimen processed s uccessfully by automated experimental mechanic device, ThinPrep Imaging System, [employer] ANCILLARY TESTING ACCOUNTING CLERK HPV Ordered, Please see separate report 09/19/2021 10:[address] [facility] Note The pap test is a screening technique, not a diagnostic procedure. It is used primarily to screen for squamous cancers and precursor lesions. Published studies have shown that it is subject to both false negative and false positive results. The pap test should not be used as the sole means to diagnose or exclude pre-malignant and malignant lesions. 09/19/2021 10:[address] [facility] Other (Cervical/Vagina l) 09/10/2021 10:00 AM PROJECT ACCOUNT MANAGER 09/11/2021 9:29 AM PROJECT ACCOUNT MANAGER Andreea Zee MD PATHOLOGY/ CYTOLOGY [facility] [email or web address] [facility] LABORATORY [address] [place] [address], [place] from Last 3 Months or Most Recently Relevant to Health Maintenance Care Teams Talking Books Library Clerk Relationship Specialty Start Date End Date Pcp, No . PCP - General 01/06/23
--- OUTSIDE RECORDS SUMMARY | 2024-04-19 11:11 | XMS_ITS | Encounter Summary ---
Author Organization [place] Address [facility] [place] [address] Care Team Providers Care Fabricator Industrial Furnace Name Role Phone Joleen Baeza MD Primary Care Provider Jerica Oleary PA-C Unavailable [phone] Jerica Oleary PA-C Primary Care Provider Reason for Visit * Reason Onset Date Comments Pt. Information/instruction 11/23/2012 Encounter Details Date Type Department Care Team (Late st Contact Info) Description 11/23/2012 MyC Medical Advice [facility] [address] [facility], [address] [place] [address] [place] [address] [place] [address] Pt. Information/instruct ion Social History Tobacco Use Types Packs/Day Years Used Date Smoking Tobacco: Never Smokeless Tobacco: Never Alcohol Use Standard Drinks/Week Comments No 0 (1 standard drink = 0.6 oz pur e alcohol) Sex and Gender Information Value Date Recorded Sex Assigned at Female 06/01/2023 10:21 AM GUEST SERVICE AIDE Gender Identity Female 06/01/2023 10:21 AM GUEST SERVICE AIDE Sexual Orientation Straight 06/01/2023 10 :21 AM GUEST SERVICE AIDE documented as of this encounter Plan of Treatment Not on file documented as of this encounter Visit Diagnoses Not on filedocumented in this encounter Care Teams Fabricator Industrial Furnace Relationship Specialty Start Date End Date Joleen Baeza MD PCP - General Family Practice 10/13/11 05/09/23 Jerica Oleary PA-C [place] [address] [place] [address] PCP - General 05/10/23 Jerica Oleary PA-C [place] [address] [place] [address] 05/10/23 documented as of this encounter
--- OUTSIDE RECORDS SUMMARY | 2024-04-19 11:11 | XMS_ITS | Referral Summary ---
Author Organization [place] Address [address] [place] [address] Care Team Providers Care Loss Prevention Analyst Name Role Phone Jerica Oleary PA-C Unavailable [phone] Jerica Oleary PA-C Primary Care Provider [phone] Allergies Active Allergy Reactions Criticality Noted Date [...] 50 MCG/ACT nasal sprayIndications:C hronic maxillary sinusitis [place] 2 sprays into both nostrils daily. 1 [...] Sex Assigned at Female 06/01/2023 10:21 AM RESTAURANT CREW PERSON Gender Identity Female 06/01/2023 10:21 AM RESTAURANT CREW PERSON Sexual Orientation Straight 06/01/2023 10 :21 AM RESTAURANT CREW PERSON Last Filed Vital Signs Vital Sign Reading [...] THIN LAYER SCREEN Routine 09/12/2010 2:59 PM RESTAURANT CREW PERSON Routine general medical examination at a [facility] care facility LIPID REFLEX TO DIRECT LDL PANEL Routine 08/28/2010 8:19 AM RESTAURANT CREW PERSON Hypothyroidism Obesity Weight gain Elevated C-reactive protein (CRP) CARDIOVASCULAR SCREENING; LDL GOAL LESS THAN 160 C MAMMOGRAM, BOTH BREASTS (DIAG) Routine 02/12/2005 10:07 AM CDT from Last 3 Months or Most Recently Relevant to Health Maintenance Results * (ABNORMAL) Basic metabolic panel (05/10/2023 4:17 PM CDT) [facility] Sodium 136 135 - 145 mmol/L 05/10/2023 [...] Morgan MD LAB - BLOOD ORDERABL ES [facility] [address] [facility] Lab (1st floor, no room number) [place] [address], [place] [phone] * TSH with free T4 reflex (11/10/2012 3:44 PM CDT) TSH 2.54 0.4 - 5.0 mU/L [facility] Blood specimen (specimen) 11/10/2012 3:44 PM CDT 11/10/2012 3:46 PM CDT Joleen Baeza MD LAB - BLOOD ORD ERABLES [facility] [address] [place] [address] * PAP imaged thin layer screen (09/12/2010 2:59 PM RESTAURANT CREW PERSON) PAP NIL SURESH Trujillo Report Patient Name: KEILA CUI MR#: [id number] Specimen #: [id number] Collected: 09/12/2010 Received: 09/16/2010 Reported: 09/17/2010 11:37 [...] Antonio ( ASCP) Processed and screened at [facility] CLINICAL HISTORY: LMP: 08/17/2010 Irregular Bleeding, Previous normal pap Date of Last Pap: 08/28/2009, Papanicolaou Test Limitations: ??Cervical cytology is a screening test with limited sensitivity; regular screening is critical for cancer prevention; Pap tests are primarily effective for the diagnosis/preventi on of squamous cell carcinoma, not adenocarcinomas or other cancers. TESTING LAB LOCATION: [facility] [address] [place], [place] ??[address] COLLECTION SITE: Client: ??[facility] Location: [facility] (R) [facility] Cytologic material (specimen) 09/12/2010 2:59 PM RESTAURANT CREW PERSON 09/16/2010 10:24 AM RESTAURANT CREW PERSON Keila Henriquez PA-C LAB - OPTIME CLIN ICAL SPECIMEN [facility] * (ABNORMAL) Lipid panel reflex to direct LDL (08/28/2010 8:19 AM RESTAURANT CREW PERSON) Cholesterol 195 0 - 200 mg/dL [facility] Comment: LDL Cholesterol is the primary guide to therapy. The NCEP recommends further evaluation of: patients with cholesterol <200 mg/dL if additional risk factors are present, cholesterol >240 mg/dL, triglycerides >150 mg/dL, or HDL <40 mg/dL. Triglycerides 144 0 - 150 mg/dL [facility] HDL Cholesterol 45(L) 50 - 110 mg/dL [facility] LDL Cholesterol Calculated 122 0 - 129 mg/dL [facility] Comment: LDL Cholesterol is the primary guide to therapy: LDL-cholesterol goal in high risk patients is <100 mg/dL and in very high risk patients is <70 mg/dL. VLDL-Cholesterol 29 0 - 30 mg/dL [facility] Cholesterol/HDL Ratio 4.4 0.0 - 5.0 [facility] Blood specimen (specimen) 08/28/2010 8:19 AM RESTAURANT CREW PERSON 08/28/2010 8:21 AM RESTAURANT CREW PERSON Keila Henriquez PA-C LAB - BLOOD ORDER DAYSI [facility] * MAMMOGRAM, BOTH BREASTS (DIAG) [...] Recently Relevant to Health Maintenance Care Teams Loss Prevention Analyst Relationship Specialty Start Date End Date Jerica Oleary PA-C [place] [address] [place] [address] PCP - General 05/10/23 Jerica Oleary PA-C [place] [address] [place] [address] 05/10/23
--- OUTSIDE RECORDS SUMMARY | 2024-04-19 11:11 | XMS_ITS | Clinical Summary ---
Author Organization [place] Address [address] [place] [address] Care Team Providers Care Regulatory And Compliance Technician Name Role Phone Jerica Oleary PA-C Unavailable [phone] Jerica Oleary PA-C Primary Care Provider [phone] Allergies Active Allergy Reactions Criticality Noted Date [...] 50 MCG/ACT nasal sprayIndications:C hronic maxillary sinusitis [place] 2 sprays into both nostrils daily. 1 [...] Sex Assigned at Female 06/01/2023 10:21 AM PRIVACY ANALYST Gender Identity Female 06/01/2023 10:21 AM PRIVACY ANALYST Sexual Orientation Straight 06/01/2023 10 :21 AM PRIVACY ANALYST Last Filed Vital Signs Vital Sign Reading [...] Additional history exists LIPID 2018 08/28/2010, 06/19/2009 PHQ-2 (once per calendar year) 2023 COVID-19 Vaccine ( season) 2024 03/28/2022, 05/16/2021, 10/18/2020, Additional history exists INFLUENZA VACCINE (#1) 2024 , 03/16/2021, 04/27/2013, [...] THIN LAYER SCREEN Routine 09/12/2010 2:59 PM PRIVACY ANALYST Routine general medical examination at a health care facility LIPID REFLEX TO DIRECT LDL PANEL Routine 08/28/2010 8:19 AM PRIVACY ANALYST Hypothyroidism Obesity Weight gain Elevated C-reactive protein [...] MD LAB - BLOOD ORDERABL ES LABORATORY [facility] Acute Care Lab [address] [facility] Lab (1st floor, no room number) [place] [address], [facility] [phone] * TSH with free T4 reflex (11/10/2012 3:44 PM CDT) TSH 2.54 0.4 - 5.0 mU/L [facility] Blood specimen (specimen) 11/10/2012 3:44 PM CDT 11/10/2012 3:46 PM CDT Joleen Baeza MD LAB - BLOOD ORD ERABLES [facility] [address] [place] [address] * PAP imaged thin layer screen (09/12/2010 2:59 PM PRIVACY ANALYST) PAP NIL SURESH Trujillo Report Patient Name: KEILA CUI MR#: [id number] Specimen #: [id number] Collected: 09/12/2010 Received: 09/16/2010 Reported: 09/17/2010 11:37 [...] Antonio ( ASCP) Processed and screened at [facility] CLINICAL HISTORY: LMP: 08/17/2010 Irregular Bleeding, Previous normal pap Date of Last Pap: 08/28/2009, Papanicolaou Test Limitations: ??Cervical cytology is a screening test with limited sensitivity; regular screening is critical for cancer prevention; Pap tests are primarily effective for the diagnosis/preventi on of squamous cell carcinoma, not adenocarcinomas or other cancers. TESTING LAB LOCATION: [address] ??[address] COLLECTION SITE: Client: ??[facility] Location: [facility] Cytologic material (specimen) 09/12/2010 2:59 PM PRIVACY ANALYST 09/16/2010 10:24 AM PRIVACY ANALYST Keila GAUTHIER - [facility] CLIN ICAL SPECIMEN [facility] * (ABNORMAL) Lipid panel reflex to direct LDL (08/28/2010 8:19 AM PRIVACY ANALYST) Cholesterol 195 0 - 200 mg/dL [facility] Comment: LDL Cholesterol is the primary guide to therapy. The NCEP recommends further evaluation of: patients with cholesterol <200 mg/dL if additional risk factors are present, cholesterol >240 mg/dL, triglycerides >150 mg/dL, or HDL <40 mg/dL. Triglycerides 144 0 - 150 mg/dL [facility] HDL Cholesterol 45(L) 50 - 110 mg/dL [facility] LDL Cholesterol Calculated 122 0 - 129 mg/dL [facility] Comment: LDL Cholesterol is the primary guide to therapy: LDL-cholesterol goal in high risk patients is <100 mg/dL and in very high risk patients is <70 mg/dL. VLDL-Cholesterol 29 0 - 30 mg/dL [facility] Cholesterol/HDL Ratio 4.4 0.0 - 5.0 [facility] Blood specimen (specimen) 08/28/2010 8:19 AM PRIVACY ANALYST 08/28/2010 8:21 AM PRIVACY ANALYST Keila Henriquez PA-C LAB - BLOOD ORDER DAYSI [facility] * MAMMOGRAM, BOTH BREASTS (DIAG) (02/12/2005 [...] Recently Relevant to Health Maintenance Care Teams Regulatory And Compliance Technician Relationship Specialty Start Date End Date Jerica Oleary PA-C [facility] [address] [place] [address] PCP - General 05/10/23 Jerica Oleary PA-C [facility] [address] [place] [address] 05/10/23
--- OUTSIDE RECORDS SUMMARY | 2024-04-19 11:11 | XMS_ITS | Encounter Summary ---
Author Organization [place] Address [facility] [place] [address] Care Team Providers Care Recreational Facilities Motel Manager Name Role Phone Joleen Baeza MD Primary Care Provider Jerica Oleary PA-C Unavailable [phone] Jerica Oleary PA-C Primary Care Provider [phone] Reason for Visit * Reason Onset Date Comments Refill Request 11/22/2012 Flonase Encounter Details Date Type Department Care Team (Late st Contact Info) Description 11/22/2012 MyC Refill [place] [id number] [facility], [address] [place] [address] [place] [address] [place], [place] [id number] Refill Request (Flonase) Social History Tobacco Use Types Packs/Day Years Used Date Smoking Tobacco: Never Smokeless Tobacco: Never Alcohol Use Standard Drinks/Week Comments No 0 (1 standard drink = 0.6 oz pur e alcohol) Sex and Gender Information Value Date Recorded Sex Assigned at Female 06/01/2023 10:21 AM SHEARING SUPERVISOR Gender Identity Female 06/01/2023 10:21 AM SHEARING SUPERVISOR Sexual Orientation Straight 06/01/2023 10 :21 AM SHEARING SUPERVISOR documented as of this encounter Miscellaneous Notes [...] Delisa - 11/23/2012 7:39 AM CDTMessage from [facility]: Original authorizing provider: MD Dean Chiangth Carlito Whitney would like a refill of the following medications: fluticasone (FLONASE) 50 MCG/ACT nasal spray [Joleen Baeza MD] Preferred pharmacy: [id number] - [place] - [address] Comment: It makes it easier to breath at night with my CPAP - I only need it once every few months, but I'm about to run out. :) documented in this encounter Plan of Treatment Not on file documented as of this encounter Visit Diagnoses Diagnosis Chronic maxillary sinusitis- Primary documented in this encounter Care Teams Recreational Facilities Motel Manager Relationship Specialty Start Date End Date Joleen Baeza MD PCP - General Family Practice 10/13/11 05/09/23 Jerica Oleary PA[facility]C [facility] [place] [address] [place] [address] PCP - General 05/10/23 Jerica Oleary PA-C [address] [place], [place] [address] 05/10/23 documented as of this encounter
== END 2024-04-14 15:03 | disposition home or self-care (01) ==
LOC: NFLDREF 04-19 11:09
PROVIDERS: PCP Physician Assistant Medical; Referring Provider Physician Assistant Medical; Visit Provider Family Medicine
DX: R35.0 Frequency of micturition (principal)
CPT/HCPCS: 87086; 87186

== ENCOUNTER 2024-06-07 08:00 | Outpatient (CLI) | payer BC, SELFPAY ==
--- OUTSIDE RECORDS SUMMARY | 2024-06-10 19:55 | XMS_ITS | Referral Summary ---
Author Organization [place] Address [address] [place] [address] Care Team Providers Care Staff Therapist Name Role Phone Jerica Oleary PA-C Unavailable [phone] Jerica Oleary PA-C Primary Care Provider [phone] Allergies Active Allergy Reactions Criticality Noted Date Comments Sulfa Antibiotics 06/06/2009 Hives Medications levothyroxine (SYNTHROID) 50 MCG tabletIndicatio ns:Hypothyroidi sm Take 1 tablet by mouth every morning. 90 tablet 3 2 Active VITAMIN D, CHOLECALCIFEROL , PO Take 2,000 Units by mouth daily. Active ibuprofen (ADVIL,MOTRIN) 600 MG tabletIndicatio ns:Endometriosi s Take 1 tablet by mouth every 6 hours as needed for other (For mild pain or temperature greater than 102F). 30 tablet 0 3 Active fluticasone (FLONASE) 50 MCG/ACT nasal sprayIndication s:Chronic maxillary sinusitis [place] 2 sprays into both nostrils daily. 1 Package 11 3 Active minocycline (MINOCIN,DYNACI N) 50 MG capsuleIndicati ons:Acne Take 1 capsule by mouth 2 times daily. 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 Not on file Not on file Last Filed Vital Signs Vital Sign Reading [...] THIN LAYER SCREEN Routine 09/12/2010 2:59 PM BRAND ENGINEER Routine general medical examination at a health care facility LIPID REFLEX TO DIRECT LDL PANEL Routine 08/28/2010 8:19 AM BRAND ENGINEER Hypothyroidism Obesity Weight gain Elevated C-reactive protein [...] 4:17 PM CDT 05/10/2023 4:28 PM CDT us Clark Morgan MD LAB - BLOOD ORDERABLES Final Res ult LABORATORY [facility] Acute Care Lab [address] Lab (1st floor, no room number) [place] [address], [facility] [phone] * TSH with free T4 reflex (11/10/2012 3:44 PM CDT) TSH 2.54 0.4 - 5.0 mU/L [facility] Blood specimen (specimen) 11/10/2012 3:44 PM CDT 11/10/2012 3:46 PM CDT Joleen Baeza MD LAB - BLOOD ORDERABLES Final Result [facility] [address] [place] [address] * PAP imaged thin layer screen (09/12/2010 2:59 PM BRAND ENGINEER) PAP NIL SURESH Trujillo Report Patient Name: KEILA CUI MR#: [id number] Specimen #: [id number] Collected: 09/12/2010 Received: 09/16/2010 Reported: 09/17/2010 11:37 [...] Antonio ( ASCP) Processed and screened at [facility] CLINICAL HISTORY: LMP: 08/17/2010 Irregular Bleeding, Previous normal pap Date of Last Pap: 08/28/2009, Papanicolaou Test Limitations: ??Cervical cytology is a screening test with limited sensitivity; regular screening is critical for cancer prevention; Pap tests are primarily effective for the diagnosis/preventi on of squamous cell carcinoma, not adenocarcinomas or other cancers. TESTING LAB LOCATION: [address] ??[address] COLLECTION SITE: Client: ??[facility] Location: [facility] Cytologic material (specimen) 09/12/2010 2:59 PM BRAND ENGINEER 09/16/2010 10:24 AM BRAND ENGINEER Keila Henriquez PA-C LAB - OPTIME CLINICAL SAE FERREIRA Final Result [facility] * (ABNORMAL) Lipid panel reflex to direct LDL (08/28/2010 8:19 AM BRAND ENGINEER) Cholesterol 195 0 - 200 mg/dL [facility] Comment: LDL Cholesterol is the primary guide to therapy. The NCEP recommends further evaluation of: patients with cholesterol <200 mg/dL if additional risk factors are present, cholesterol >240 mg/dL, triglycerides >150 mg/dL, or HDL <40 mg/dL. Triglycerides 144 0 - 150 mg/dL [facility] HDL Cholesterol 45(L) 50 - 110 mg/dL [facility] LDL Cholesterol Calculated 122 0 - 129 mg/dL [facility] Comment: LDL Cholesterol is the primary guide to therapy: LDL-cholesterol goal in high risk patients is <100 mg/dL and in very high risk patients is <70 mg/dL. VLDL-Cholesterol 29 0 - 30 mg/dL [facility] Cholesterol/HDL Ratio 4.4 0.0 - 5.0 [facility] Blood specimen (specimen) 08/28/2010 8:19 AM BRAND ENGINEER 08/28/2010 8:21 AM BRAND ENGINEER Keila Henriquez PA-C LAB - BLOOD ORDERABLES Fi nal Result [facility] [address] [place] [address] * MAMMOGRAM, BOTH BREASTS (DIAG) (02/12/2005 10:07 [...] SUSPICIOUS ABNORMALITY. ?? LOW SUSPICION OF MALIGNANCY. us Trip Hale MD SPECIAL IMAGING STUDIES Edite d from Last 3 Months or Most Recently Relevant to Health Maintenance [place] Care Teams Staff Therapist Relationship Specialty Start Date End Date Jerica Oleary PA-C [place] [address] [place] [address] PCP - General 05/10/23 Jerica Oleary PA-C [place] [address] [place] [address] 05/10/23
--- OUTSIDE RECORDS SUMMARY | 2024-06-10 19:55 | XMS_ITS | Clinical Summary ---
Author Organization [facility] Address [place], [place] [address] Care Team Providers Care Electronic Components Assembler Name Role Phone Pcp, No Primary Care [...] daily before meals. 0 05/04/2019 Active multivitamins-calciu [id number]-dtbxyexj (Multiple Vitamin, Womens) tab tablet Take 1 [...] g) by mouth once daily. 360 Tablet 05/07/2024 Active Active Problems Problem Noted Date Diagnosed Date NADYA (obstructive sleep apnea) 07/07/2017 Encounters Date Type Department Care Team Description 05/05/2024 Refill [facility] [address] [place] [address] Pablo Pérez MD Refill Request (Colestipol) 04/19/2024 Telephone [facility] [address] [place] [place] [address] [address] Pablo Pérez MD Questions (Phone visit?) from Last 3 Months Immunizations Name Administration [...] Comments Blood Pressure 118/66 09/04/2019 3:43 PM FLAMER SEALER Pulse 77 09/04/2019 3:43 PM FLAMER SEALER Temperature 36.9 ??C (98.4 ??F) 02/04/2017 2:15 PM CD T Respiratory Rate 18 09/04/2019 3:43 PM FLAMER SEALER Oxygen Saturation 97% 09/04/2019 3:43 PM FLAMER SEALER RA rest Inhaled Oxygen Concentration - - Weight 119.3 kg (263 lb) 09/04/2019 3:43 PM FLAMER SEALER Height 167.6 cm (5' 6) 09/04/2019 3:43 PM FLAMER SEALER Body Mass Index 42.45 09/04/2019 3:43 PM FLAMER SEALER Plan of Treatment Upcoming Encounters Date Type Department Care Team (Late st Contact Info) Description 07/27/2024 3:00 PM FLAMER SEALER Office Visit [facility] [address] [place] [address] Pablo Pérez MD [address] [place] [address] Health Maintenance Due Date Last Done Comments Depression screening for age 12+ 1990 HIV for age 15-65 1993 Hepatitis C screening for age 18-79 01/18/1996 BMI (ht and wt on same day) for age 18+ 09/04/2020 09/04/2019, 07/07/2017, 09/02/2016, Additional history exists Colonoscopy through age 75 2023 Lipids for age 45-75 2023 Mammogram for age 45-75 2023 COVID-19 vaccine series (2023- season) 2024 06/16/2023, 03/28/2022, 05/16/2021, Additional history exists Influenza for age 9-49 03/26/2024 1, 04/27/2013, 04/28/2012, Additional history exists Pap test for age 21-65 09/10/2024 2, 09/10/2020, 08/19/2015, Additional history exists Tetanus booster 07/01/2028 07/01/2018, 10/24, 03/02/2013, Additional history exists Tdap Completed 07/01/2018, 080 02/2013, 09/03/2008 Pneumococcal series for age 6-64 Aged Out No longer eligible based on patient's age to complete this topic Procedures Procedure Name Priority Date/Time Associated Diagnosis Comments BENEFITS ASSISTANT THIN PREP PAP SCREEN IMAGED Routine 09/10/2021 10:00 AM FLAMER SEALER from Last 3 Months or Most Recently Relevant to Health Maintenance Results * BENEFITS ASSISTANT THIN PREP PAP SCREEN IMAGED (09/10/2021 10:00 AM FLAMER SEALER) Case Report Gynecologic Cytology Report ? Case: [id number] ? Authorizing Provider: ??Andreea Zee ?Collected: ? 09/10/2021 1000 ? Essie, ? Ordering Location: ? [facility] ?Received: ?09/11/2021 0929 ? First Screen: ?Radhames Ospnia ? Specimen: ?BENEFITS ASSISTANT ThinPrep Vial Screening, Cervical/Vaginal ? 09/19/2021 10:14 AM FLAMER SEALER [facility] INTERPRETATION/ RESULT NEGATIVE FOR INTRAEPITHELIAL LESION OR MALIGNANCY (NIL) (none) 09/19/2021 10:14 AM FLAMER SEALER [facility] IMEN ADEQUACY Satisfactory for evaluation Endocervical component present 09/19/2021 10:14 AM [facility] HPV REQUEST HPV and PAP 09/19/2021 10:14 AM [facility] Last Pap Date 08/19/2015 09/19/2021 10:14 AM [facility] Last Pap Result NIL 10:14 AM [facility] Comment:HPV neg Menstrual Status 09/19/2021 10:14 AM [facility] Comment: control Additional Information 09/19/2021 10:14 AM [facility] Comment: Interpreted at [facility] - [address], [place] [address] Automated Review Successful 09/19/2021 10:14 AM [facility] Comment:Specimen processed s uccessfully by automated semi automatic sewing machine operator device, [employer] Cay[employer] Holdings[employer] Imaging System, [employer] ANCILLARY TESTING BENEFITS ASSISTANT HPV Ordered, Please see separate report 09/19/2021 [...] LABORATORY Other (Cervical/Vagina l) 09/10/2021 10:00 AM FLAMER SEALER 09/11/2021 9:29 AM [facility] Andreea Zee MD PATHOLOGY/ CYTOLOGY [facility] [address] [place] [address], [place] from Last 3 Months or Most Recently Relevant to Health Maintenance Care Teams Electronic Components Assembler Relationship Specialty Start Date End Date Pcp, No . PCP - General 01/06/23
--- OUTSIDE RECORDS SUMMARY | 2024-06-10 19:55 | XMS_ITS | Clinical Summary ---
Author Organization [facility] Address [address] [place] [address] Care Team Providers Care Marina Manager Name Role Phone Unavailable Primary Care Provider Unavailabl e Source Comments Patient records contain information from all sites at [facility]. For routine questions regarding patient records, call [phone] during business hours, M-F 8:00 AM - 5:00 PM Central Time. Record requests for emergency care only can be directed to [phone] at any time.[facility] Allergies Active Allergy Reactions Criticality Noted Date Comments Melatonin Other (see comments) 03/24/2018 Interferes with estrogen absorbtion Metronidazole Other (see comments) 02/04/2017 Nerve damage Sulfa (Sulfonamide Antibiotics) Hives (Reselect Reaction) 01/28/2017 Adhesive Other (see comments) 05/15/2019 Some tapes and band aids sheer skin. Best band aid brand skin flex, also uses cover-roll tape without issue. Medications colestipol (COLESTID) 1 gram tablet Take 4 g by mouth at bedtime as needed. 8 Active multivitamin/ir on/folic acid (CENTRUM COMPLETE ORAL) Take by mouth daily. 7 Active cholecalciferol (VITAMIN D3) 125 mcg (5,000 Unit) tablet Take 1 tablet by mouth daily. 7 Active levothyroxine (SYNTHROID, LEVOTHROID) 75 mcg tablet Take 75 mcg by mouth every morning before breakfast. Active gemfibrozil (LOPID) 600 mg tablet Take 600 mg by mouth 2 (two) times a day before breakfast and dinner. 5 9 Active miscellaneous medical supply [facility] CPAP machine for home use at pressure: 10, full face mask with cushion x 1, 9 Active SPRINTEC, 28, 0.25-35 mg-mcg per tablet TAKE 1 TABLET BY MOUTH EVERY DAY *TAKES CONTINUOUSLY* 2 9 Active hydroCHLOROthia zide (MICROZIDE) 12.5 mg capsule TAKE 1 CAPSUKE BY MOUTH DAILY 2 Active Social History Tobacco Use Types Packs/Day Years Used Date Smoking Tobacco: Never Smokeless Tobacco: Never Alcohol Use Standard Drinks/Week Comments Never 0 (1 standard drink = 0.6 oz pur e alcohol) [facility] Utilities Answer Date Recorded In the past 12 months has e [employer], oil, or water [employer] threatened to shut off services in your [...] How often do you attend chur or mu-ism services? More than 4 times per year 07/31/2022 Do you belong to any clubs o r organizations such as sikh groups, unions, fraternal or athletic groups, or [...] and heating? Not hard at all 07/31/2022 [facility] of Occupat ional Health - Occupational Stress [...] your living situation today? I have a [facility] place to live 10/28/2023 Education Answer Date Recorded What is the highest level of school you have completed or the highest degree you have received? 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 Not on file [...] Depression Screening (Annual PHQ-2) 07/26/2023 COVID-19 Vaccine (2023- season) 2024 06/16/2023, 03/28/2022, 05/16/2021, Additional history exists Influenza Vaccine (#1) 2024 3, 05/20/2023, 03/28/2022, Additional history exists Cervical/Vaginal Cancer Screening 09/10/2024 09/10/2021, 08/05/2015 (Performed elsewhere) Fasting Glucose for Diabetes Screening 05/10/2026 05/10/2023 DTaP,Tdap,and Td Vaccines (5 - Td or Tdap) 07/01/2028 07/01/2018, 11/09/2013, 03/02/2013, Additional history exists IPV Vaccines Aged Out No longer eligi ble based on patient's age to complete this topic Pneumococcal vaccine (0-64 years) Aged Out No longer eligible based on patient's age to complete this topic Medical Devices Implanted Type Area House Nurse Device Identifier Shelf Expiration Date Model / Serial / Lot Imaging Marker Imaging Marker Left: Breast Insurance [facility]
--- OUTSIDE RECORDS SUMMARY | 2024-06-10 19:55 | XMS_ITS | Encounter Summary ---
Author Organization [place] Address [address] [place] [address] Care Team Providers Care Ship Keeper Name Role Phone Joleen Baeza MD Primary Care Provider Jerica Oleary PA-C Unavailable [phone] Jerica Oleary PA-C Primary Care Provider [phone] Reason for Visit * Reason Onset Date Comments Pt. Information/instruction 11/23/2012 Encounter Details Date Type Department Care Team (Late st Contact Info) Description 11/23/[address] [facility] [address], [address] [place] [address] [place] [address] [place] [address] Pt. 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 on file 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
--- OUTSIDE RECORDS SUMMARY | 2024-06-10 19:55 | XMS_ITS | Clinical Summary ---
Author Organization [facility] Address [address] [place] [address] Care Team Providers Care Tobacco Sample Puller Name Role Phone Jerica Oleary PA-C Unavailable [phone] Jerica Oleary PA-C Primary Care Provider [phone] Allergies Active Allergy Reactions Criticality Noted Date [...] 50 MCG/ACT nasal sprayIndication s:Chronic maxillary sinusitis [place] 2 sprays into both nostrils daily. 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 Not on file Not [...] Additional history exists INFLUENZA VACCINE (#1) 2024 2, 03/16/2021, 04/27/2013, Additional history exists GLUCOSE 05/10/2026 05/10/2023, 10/24, 08/28/2010, Additional history exists DTAP/TDAP/TD IMMUNIZATION (5 - Td or Tdap) 07/01/2028 07/01/2018, 11/09/2013, 03/02/2013, Additional history exists RSV VACCINE (1 - 1-dose 75+ series) 2053 HPV IMMUNIZATION Aged Out No longer e [...] THIN LAYER SCREEN Routine 09/12/2010 2:59 PM PARK GUARD Routine general medical examination at a [facility] facility LIPID REFLEX TO DIRECT LDL PANEL Routine 08/28/2010 8:19 AM PARK GUARD Hypothyroidism Obesity Weight gain Elevated C-reactive protein [...] CDT Clark Morgan MD LAB - BLOOD ORDERABLES Final Res ult LABORATORY [facility] [address] Lab (1st floor, no room number) [place] [address], [facility] [phone] * TSH with free T4 reflex (11/10/2012 3:44 PM CDT) TSH 2.54 0.4 - 5.0 mU/L [facility] Blood specimen (specimen) 11/10/2012 3:44 PM CDT 11/10/2012 3:46 PM CDT Joleen Baeza MD LAB - BLOOD ORDERABLES Final Result [facility] [address] [place] [address] * PAP imaged thin layer screen (09/12/2010 2:59 PM PARK GUARD) PAP VICKY Trujillo Report Patient Name: KEILA CUI MR#: [id number] Specimen #: [id number] Collected: 09/12/2010 Received: 09/16/2010 Reported: 09/17/2010 11:37 [...] Antonio ( ASCP) Processed and screened at [facility] CLINICAL HISTORY: LMP: 08/17/2010 Irregular Bleeding, Previous normal pap Date of Last Pap: 08/28/2009, Papanicolaou Test Limitations: ??Cervical cytology is a screening test with limited sensitivity; regular screening is critical for cancer prevention; Pap tests are primarily effective for the diagnosis/preventi on of squamous cell carcinoma, not adenocarcinomas or other cancers. TESTING LAB LOCATION: [address] ??[address] COLLECTION SITE: Client: ??[facility] Location: [facility] Cytologic material (specimen) 09/12/2010 2:59 PM PARK GUARD 09/16/2010 10:24 AM PARK GUARD us Keila Henriquez PA-C LAB - OPTIME CLINICAL SPE JHON Final Result COPATH * (ABNORMAL) Lipid panel reflex to direct LDL (08/28/2010 8:19 AM PARK GUARD) Cholesterol 195 0 - 200 mg/dL [facility] Comment: LDL Cholesterol is the primary guide to therapy. The NCEP recommends further evaluation of: patients with cholesterol <200 mg/dL if additional risk factors are present, cholesterol >240 mg/dL, triglycerides >150 mg/dL, or HDL <40 mg/dL. Triglycerides 144 0 - 150 mg/dL [facility] HDL Cholesterol 45(L) 50 - 110 mg/dL [facility] LDL Cholesterol Calculated 122 0 - 129 mg/dL [facility] Comment: LDL Cholesterol is the primary guide to therapy: LDL-cholesterol goal in high risk patients is <100 mg/dL and in very high risk patients is <70 mg/dL. VLDL-Cholesterol 29 0 - 30 mg/dL [facility] Cholesterol/HDL Ratio 4.4 0.0 - 5.0 [facility] Blood specimen (specimen) 08/28/2010 8:19 AM PARK GUARD 08/28/2010 8:21 AM PARK GUARD Keila Henriquez PA-C LAB - BLOOD ORDERABLES Fi nal Result Performing Organization Address [facility]/State/[facility] Co de Phone Number [facility] [address] [place] [address] * MAMMOGRAM, BOTH BREASTS (DIAG) (02/12/2005 10:07 [...] Most Recently Relevant to Health Maintenance Insurance [facility] [place] [address] [place] [address] Care Teams Tobacco Sample Puller Relationship Specialty Start Date End Date Jerica Oleary PA-C [place] [address] [place] [address] PCP - General 05/10/23 Jerica Oleary PA-C [place] [address] [place] [address] 05/10/23
--- OUTSIDE RECORDS SUMMARY | 2024-06-10 19:55 | XMS_ITS ---
Author Organization [facility] Address [address] [place] [address] Care Team Providers Care Coal Washer Tender Name Role Phone Unavailable Unavailable Unavailable Surgery Details Not on file Complications Check Surgery Details section. Procedure Estimated Blood Loss Check Surgery Details section. Procedure Findings Check Surgery Details section. Procedure Specimens Taken Check Surgery Details section.
--- OUTSIDE RECORDS SUMMARY | 2024-06-10 19:55 | XMS_ITS | Encounter Summary ---
Author Organization [place] Address [facility] [place] [address] Care Team Providers Care Neurology Teacher Name Role Phone Joleen Baeza MD Primary Care Provider Jerica Oleary PA-C Unavailable [phone] Jerica Oleary PA-C Primary Care Provider [phone] Reason for Visit * Reason Onset Date Comments Refill Request 11/22/2012 Flonase Encounter Details Date Type Department Care Team (Late st Contact Info) Description 11/22/2012 MyC Refill [facility] [address], [address] [place] [address] [place] [address] [place], [place] [id number] Refill Request (Flonase) Social History Tobacco Use Types Packs/Day Years Used Date Smoking Tobacco: Never Smokeless Tobacco: Never Alcohol Use Standard Drinks/Week Comments No 0 (1 standard drink = 0.6 oz pur e alcohol) Comments No Sex and Gender Information Value Date Recorded Sex Assigned at Female 06/01/2023 10:21 AM SCHOOL LIBRARY MEDIA PROGRAM DIRECTOR Legal Sex Female 4:24 AM SCHOOL LIBRARY MEDIA PROGRAM DIRECTOR Gender Identity Female 06/01/2023 10:21 AM SCHOOL LIBRARY MEDIA PROGRAM DIRECTOR Sexual Orientation Straight 06/01/2023 10 :21 AM SCHOOL LIBRARY MEDIA PROGRAM DIRECTOR 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 on 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 Not on file Not on file documented as of this encounter Miscellaneous Notes [...] Delisa Romero RN * Telephone Encounter - Nelly Romeroique - 11/23/2012 7:39 AM [facility] Original authorizing provider: MD Dean Chiangcurt Esteban Sosakhoa would like a refill of the following medications: fluticasone (FLONASE) 50 MCG/ACT nasal spray [Joleen Baeza MD] Preferred pharmacy: [id number] [address] Comment: It makes it easier to breath at night with my CPAP - I only need it once every few months, but I'm about to run out. :) documented in this encounter Plan of Treatment Not on file documented as of this encounter Visit Diagnoses Diagnosis Chronic maxillary sinusitis- Primary documented in this encounter Care Teams Neurology Teacher Relationship Specialty Start Date End Date Joleen Baeza MD PCP - General Family Practice 10/13/11 05/09/23 Jerica Oleary PA-C [place] [address] [place] [address] PCP - General 05/10/23 Jerica Oleary PA-C [place] [address] [place] [address] 05/10/23 documented as of this encounter
--- OUTSIDE RECORDS SUMMARY | 2024-06-10 19:55 | XMS_ITS | Referral Summary ---
Author Organization [facility] Address [address] [place] [address] Care Team Providers Care Soil Science Technical Officer Name Role Phone Unavailable Primary Care Provider Unavailabl e Source Comments Patient records contain information from all sites at [facility]. For routine questions regarding patient records, call [phone] during business hours, M-F 8:00 AM - 5:00 PM Central Time. Record requests for emergency care only can be directed to [phone] at any time.[facility] Allergies Active Allergy Reactions Criticality Noted Date [...] dinner. 5 9 Active miscellaneous medical supply [facility] CPAP machine for home use at pressure: [...] drink = 0.6 oz pur e alcohol) [facility] Utilities Answer Date Recorded In the past 12 months has e [employer], oil, or water [employer] threatened to shut off services in your [...] How often do you attend chur or worship services? More than 4 times per year 07/31/2022 Do you belong to any clubs o r organizations such as anabaptism groups, unions, fraternal or athletic groups, or [...] and heating? Not hard at all 07/31/2022 [facility] [place] of Occupat ional Health - Occupational Stress [...] your living situation today? I have a [facility] place to live 10/28/2023 Education Answer Date Recorded What is the highest level of school you have completed or the highest degree you have received? 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
== END 2024-06-07 08:01 | disposition home or self-care (01) ==
LOC: NFLDREF 06-10 19:53
PROVIDERS: PCP Physician Assistant Medical; Referring Provider Physician Assistant Medical; Visit Provider Physician Assistant Medical
DX: E03.9 Hypothyroidism, unspecified (principal)
CPT/HCPCS: 84443

== ENCOUNTER 2024-08-03 07:59 | Outpatient (CLI) | payer BC, SELFPAY | END 2024-08-03 08:00 | disposition home or self-care (01) | LOC: NFLDREF 08-14 02:18 | PROVIDERS: PCP Physician Assistant Medical; Referring Provider Physician Assistant Medical; Visit Provider Physician Assistant Medical | DX: I10 Essential (primary) hypertension (principal); E03.9 Hypothyroidism, unspecified; E78.1 Pure hyperglyceridemia | CPT/HCPCS: 80053; 80061; 84443 ==

== ENCOUNTER 2024-11-14 15:03 | Outpatient (CLI) | payer BC, SELFPAY | END 2024-11-14 15:04 | disposition home or self-care (01) | LOC: NFLDREF 11-16 22:08 | PROVIDERS: PCP Physician Assistant Medical; Referring Provider Physician Assistant Medical; Visit Provider Physician Assistant Medical | DX: E03.9 Hypothyroidism, unspecified (principal) | CPT/HCPCS: 84443 ==

== ENCOUNTER 2025-02-07 12:58 | Outpatient (CLI) | payer BC, SELFPAY ==
--- NOTE | 2025-02-07 13:00 | CRLHL7_ITS ---
For Patients: As a result of the Century Cures Act, medical imaging exams and procedure reports are released immediately into your electronic medical record. You may view this report before your referring provider. If you have questions, please contact your health care provider. INDICATION: BILATERAL SCREENING MAMMOGRAM, ASYMPTOMATIC 45 Y/O FEMALE COMPARISON: 02/17/2024, 02/15/2023, 02/12/2022 TECHNIQUE: Digital mammogram in CC and MLO projections including computer-aided detection (CAD) and tomosynthesis. BREAST COMPOSITION: There are scattered areas of fibroglandular density. FINDINGS: No suspicious findings. ASSESSMENT: BI-RADS 2 Benign RECOMMENDATION: Annual screening mammogram. A lay language report of this examination will be provided to the patient. Dictated by: Robert Deleon MD @ 02/09/2025 08:55:57 (Electronically Signed)
== END 2025-02-07 12:59 | disposition home or self-care (01) ==
LOC: MAMMO 12:58
PROVIDERS: PCP Physician Assistant Medical; Visit Provider Obstetrics & Gynecology
DX: Z12.31 Encounter for screening mammogram for malignant neoplasm of breast (principal)
CPT/HCPCS: 77063; 77067

== ENCOUNTER 2025-02-16 14:05 | Outpatient (CLI) | payer BC, SELFPAY | END 2025-02-16 14:06 | disposition home or self-care (01) | LOC: NFLDREF 02-19 16:42 | PROVIDERS: PCP Physician Assistant Medical; Referring Provider Physician Assistant Medical; Visit Provider Physician Assistant Medical | DX: E03.9 Hypothyroidism, unspecified (principal) | CPT/HCPCS: 84439; 84443 ==

== ENCOUNTER 2025-05-08 16:02 | Outpatient (CLI) | payer BC, SELFPAY | END 2025-05-08 16:03 | disposition home or self-care (01) | LOC: NFLDREF 05-14 20:58 | PROVIDERS: PCP Physician Assistant Medical; Referring Provider Physician Assistant Medical; Visit Provider Physician Assistant Medical | DX: E03.9 Hypothyroidism, unspecified (principal) | CPT/HCPCS: 84443 ==

== ENCOUNTER 2025-06-22 07:58 | Outpatient (CLI) | payer BC, SELFPAY ==
--- NOTE | 2025-06-22 08:15 | CRLHL7_ITS ---
For Patients: As a result of the Century Cures Act, medical imaging exams and procedure reports are released immediately into your electronic medical record. You may view this report before your referring provider. If you have questions, please contact your health care provider. INDICATION: Right upper quadrant pain. TECHNIQUE: Ultrasound abdomen limited. Sonographic images of the right upper quadrant were obtained using gordon-scale and color Doppler images. COMPARISON: CT abdomen/pelvis dated 07/10/2023. FINDINGS: Liver: Increased echogenicity of the liver parenchyma. Round 2.5 cm echogenic lesion in the central right lobe. The liver measures 16.3 cm. Bile ducts: Intrahepatic bile ducts are not dilated. The common bile duct measures 0.6 cm. Gallbladder: Post cholecystectomy. Pancreas: Pancreas is poorly visualized secondary to acoustic shadowing from overlying/adjacent bowel gas. Right kidney: The right kidney measures 12.0 cm in length. No renal calculi or significant hydronephrosis is identified. IMPRESSION: 1. Increased echogenicity of the liver parenchyma, compatible with diffuse hepatic steatosis. 2. Round 2.5 cm echogenic lesion in the central right lobe, corresponding with an ill-defined hypodense lesion seen on prior CT, most likely reflective of a hemangioma. 3. Postcholecystectomy. Dictated by Alla Banerjee MD @ 06/22/2025 2:50:09 PM (Electronically Signed)
== END 2025-06-22 07:59 | disposition home or self-care (01) ==
LOC: US 07:58
PROVIDERS: PCP Physician Assistant Medical; Visit Provider Physician Assistant Medical
DX: R10.11 Right upper quadrant pain (principal); K76.9 Liver disease, unspecified
CPT/HCPCS: 76705

== ENCOUNTER 2025-07-10 16:11 | Outpatient (CLI) | payer BC, SELFPAY ==
--- NOTE | 2025-07-10 16:45 | CRLHL7_ITS ---
For Patients: As a result of the Century Cures Act, medical imaging exams and procedure reports are released immediately into your electronic medical record. You may view this report before your referring provider. If you have questions, please contact your health care provider. Indication: Liver lesion Technique: Pre and postcontrast CT abdomen. 126 cc Isovue 370 intravenous contrast. Postcontrast images in the arterial, venous and 5 minutes delayed timing. Please note that all CT scans at this facility use dose modulation, iterative reconstruction, and/or weight-based dosing when appropriate to reduce radiation dose to as low as reasonably achievable. Comparison: CT 07/09/2023, ultrasound 06/22/2025 Findings: Nonobstructing 3 millimeter stone right kidney. Adrenal glands normal. Normal pancreas and spleen. Small hiatal hernia. Gallbladder absent. A few small sub cm central mesenteric and retroperitoneal lymph nodes are present, not significantly changed. No bowel obstruction. Incidental splenule. Lung bases are clear. No renal mass. No fracture. Stable subtle intrahepatic hypodensity measuring 1.7 cm, segment 8. No suspicious enhancement pattern. Impression: Stable benign intrahepatic hemangioma measuring 1.7 cm within segment 8. No suspicious findings. Please note that all CT scans at this facility use dose modulation, iterative reconstruction, and/or weight-based dosing when appropriate to reduce radiation dose to as low as reasonably achievable. Dictated by Robert Deleon MD @ 07/11/2025 8:49:51 AM (Electronically Signed)
== END 2025-07-10 16:12 | disposition home or self-care (01) ==
LOC: CT 16:12
PROVIDERS: PCP Physician Assistant Medical; Visit Provider Physician Assistant Medical
DX: K76.9 Liver disease, unspecified (principal); D18.03 Hemangioma of intra-abdominal structures
CPT/HCPCS: 74170; Q9967